=== PATIENT | male | born 1945 | race Caucasian/White ===

== ENCOUNTER → 2017-01-24 | Outpatient (CLI) | payer OTHER ==
[2017-01-24 18:13] LABS: INR 1.8 (0.9-1.1); PROTHROMBIN TIME (PATIENT) 19.9 SECONDS (9.0-12.0)
== END | disposition home or self-care (01) ==
LOC: C.LABMFLN 12:26
PROVIDERS: ATTEND Nurse Practitioner Family
DX: Z79.02 Long term (current) use of antithrombotics/antiplatelets (principal)

== ENCOUNTER 2024-12-07 11:42 | Observation (INO) ==
--- NOTE | 2024-12-07 11:57 | Emergency Department Note ---
Impression & Plan Acute exacerbation of chronic obstructive pulmonary disease, Acute bronchitis ED Provider Note NAME: BETTINA VIDAL AGE: 79 SEX: M : 1945 ARRIVES VIA: Walk-In INFORMANT: Patient, ED PROVIDER(S): Bettina Rausch DO CHIEF COMPLAINT: Shortness of breath HPI: The patient is a 79-year-old male who presents to the emergency department for an evaluation of shortness of breath and cough. The patient has been noticing symptoms since around the eighth or ninth of this month. The patient was started on a course of steroids as well as antibiotics. He still taking antibiotics but the steroids have run out. He has been using his albuterol treatments. The patient was seen at his family doctor's office today for a follow-up appointment. He was sent to the emergency department for admission for ongoing pneumonia. The patient denies having any hemoptysis. He does have lower extremity swelling which is not new. ROS: See above HPI for pertinent positives & negatives. A total of 10 systems reviewed and were otherwise negative. PAST MEDICAL HISTORY: See Below PAST SURGICAL HISTORY: See Below FAMILY HISTORY: See Below SOCIAL HISTORY: See Below HOME MEDICATIONS: See Below ALLERGIES: See Below VITALS: See Below PHYSICAL EXAMINATION: GENERAL: Patient is awake alert in no acute distress patient is resting comfortably and showing no signs of anxiety EYES: The conjunctivae are clear. The pupils are round and reactive. EARS, NOSE, MOUTH AND THROAT: The nose is without any evidence of any deformity. Mucous membranes are moist. Tongue is midline. NECK: The neck is nontender and supple. RESPIRATORY: Diminished breath sounds were noted throughout. Tachypnea with conversational dyspnea was noted. CARDIOVASCULAR: Regular rate and rhythm was noted to auscultation. Systolic murmur was suggested. GASTROINTESTINAL: The abdomen is soft. Abdomen is nontender. MUSCULOSKELETAL/EXTREMITIES: There is no evidence of gross deformity full range of motion is noted in the hips and shoulders. SKIN: Skin was warm and dry. Trace pedal edema was noted bilaterally. NEUROLOGIC: Patient is awake alert and oriented x3 MEDICAL DECISION MAKING: The patient is a 79-year-old male who presented to the emergency department directly from his primary care physician's office for an evaluation of difficulty breathing. The patient was treated for pneumonia recently. He still on antibiotics. He was getting worse so he went to see his family doctor for follow-up. The patient was treated in the emergency department with bronchodilator therapy. He was also treated with IV antibiotics. I discussed the patient's laboratory and radiographic studies with him. Vital signs are reassuring but the patient continued to have significant shortness of breath with any exertion and did have episodes of hypoxia. For this reason I discussed his condition with the on-call [facility] hospitalist. Triage Nursing notes reviewed. Prior medical records reviewed Vital Signs: reviewed and remarkable for hypoxia. Differential diagnosis: Reactive airway disease, pneumonia, pneumothorax, COPD, CHF, infections, cardiac ischemia, pulmonary embolism, musculoskeletal, gastrointestinal, as well as other pathologies. ER treatment provided: See below Diagnostics interpreted by me: ECG: EKG was obtained in the emergency department. My interpretation is normal sinus rhythm at 98 bpm. There was no ectopy. Nonspecific ST depressions were noted in the inferior and lateral leads. This was compared to a tracing from September 15, 2023. No specific changes were noted. Cardiac Monitoring: An order was placed for continuous cardiac monitoring. The monitor shows a rate of 65 bpm with sinus rhythm. Laboratory studies: As stated above and show below. Imaging studies: See below. Radiographic imaging was reviewed by myself Consultation(s): I discussed this case with Dr. Yoon who is on-call for the [facility]. Past Med/Surg History Problem List (Updated 12/07/24 @ 17:35 by Leah Flaherty) Acute bronchitis (Acute) Acute exacerbation of chronic obstructive pulmonary disease (Acute) History of pulmonary embolism Rhinovirus Hypoxia Nocturnal hypoxia Multiple pulmonary nodules Subclavian artery stenosis, right COPD with exacerbation Abnormal chest CT Allergic rhinitis with postnasal drip Exertional shortness of breath Current smoker Chronic bronchitis COPD with emphysema COPD (chronic obstructive pulmonary disease) Medical History Congenital inner ear anomaly affecting hearing Family hx colonic polyps Transient ischemic attack (TIA) Peripheral vascular disease Hyperlipidemia Hyperlipidemia Deep vein thrombosis Hypertension Bronchitis Chronic obstructive pulmonary disease Surgical History History of nasal septoplasty History of procedure for peripheral vascular disease Family History Mother History of cardiac cath Father History of thoracotomy Mother Cervical cancer Social History Smoking Status: Current every day smoker Tobacco Type: Cigarettes Cigarettes Per Day: 1PPD; Second Hand Exposure: No; Do You Dip or Chew Tobacco: No; Hx Alcohol Use: No Hx Substance Use: No Preferred Language: Mohawk Communication Ability: Effective 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 Bead 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 Required: No Beliefs That Will Affect Care: None Current Living Situation: Spouse Current Living Situation Comment: own home Feels Safe at Home: Yes Assistive Devices: Cane, Glasses and Hearing Aid - Bilateral Allergies Allergies Allergy/AdvReac Type Severity Reaction Status Date / Time Iodinated Contrast Media Allergy Intermediate Hives Verified 01/27/24 07:29 blue dye Allergy Unknown HIVES Verified 01/27/24 07:29 duloxetine Allergy Unknown HIVES Verified 01/27/24 07:29 penicillin G Allergy Unknown HIVES Verified 01/27/24 07:29 Sulfa (Sulfonamide Allergy Unknown HIVES Verified 01/27/24 07:29 Antibiotics) ANTIINFLAMMATORY ENZYME Allergy Unknown HIVES Uncoded 01/27/24 07:29 Home Meds Home Medications Medication Instructions Recorded Confirmed calcium carbonate 600 mg PO DAILY 03/08/23 12/07/24 cilostazol 100 mg tablet 100 mg PO BID 03/08/23 12/07/24 clopidogrel 75 mg tablet 75 mg PO DAILY 03/08/23 12/07/24 esomeprazole magnesium 40 mg 40 mg PO DAILY 03/08/23 12/07/24 capsule,delayed release (Nexium) ezetimibe 10 mg tablet (Zetia) 10 mg PO DAILY 03/08/23 12/07/24 fexofenadine 180 mg tablet 180 mg PO DAILY 03/08/23 12/07/24 fluticasone propionate 50 2 spray intranasal DAILY 03/08/23 12/07/24 mcg/actuation nasal spray,suspension magnesium 250 mg tablet 500 mg PO DAILY 03/08/23 12/07/24 meclizine 12.5 mg tablet 12.5 mg PO TID PRN Dizziness Or 03/08/23 12/07/24 Vertigo pregabalin 75 mg capsule (Lyrica) 75 mg PO BID 03/08/23 12/07/24 rosuvastatin 5 mg tablet 10 mg PO DAILY 03/08/23 12/07/24 temazepam 7.5 mg capsule (Restoril) 7.5 mg PO HS 03/08/23 12/07/24 warfarin 1 mg tablet 2 mg PO UD 03/08/23 12/07/24 doxycycline hyclate 100 mg capsule 100 mg PO BID 12/07/24 12/07/24 ipratropium 20 mcg-albuterol 100 2 puff inhalation DIRECTED PRN 12/07/24 12/07/24 mcg/actuation mist for inhalation Other (Combivent Respimat) warfarin 3 mg tablet 3 mg PO UD 12/07/24 12/07/24 Previous Rx's Medication Instructions Recorded Flutter Valve #1 ea 03/08/23 ipratropium 0.5 mg-albuterol 3 mg 3 ml inhalation Q6H PRN shortness 03/08/23 (2.5 mg base)/3 mL nebulization of breath or wheezing #180 mL soln oxycodone-acetaminophen 5 mg-325 1 tab PO Q6H PRN pain #10 tabs 01/27/24 mg tablet (Percocet) Flutter Valve #1 ea 03/07/24 albuterol sulfate 90 mcg/actuation 2 puff inhalation Q6H PRN 03/07/24 aerosol inhaler shortness of breath or wheezing #8.5 grams guaifenesin 600 mg tablet, 600 mg PO BID PRN congestion #60 03/07/24 extended release 12 hr (Mucinex) tabs Oxygen Home #1 ea 03/28/24 umeclidinium 62.5 mcg/actuation 1 inh inhalation DAILY #3 Inhalers 06/14/24 blister powder for inhalation (Incruse Ellipta) fluticasone 500 mcg-salmeterol 50 1 inh inhalation BID #60 ea 12/03/24 mcg/dose blistr powdr for inhalation (Wixela Inhub) Results & Data (ED) Vital Signs Vital Signs - 24 hr 12/07/24 11:44 12/07/24 11:51 12/07/24 11:51 Temperature 36.2 C L Temperature Source Temporal Artery Scan Pulse Rate 89 Pulse Rate from SpO2 Sensor Pulse Rhythm Pulse Strength Normal Respiratory Rate 19 Respiratory Effort / Characteristics Non-Labored Spontaneous Spontaneous Short of Breath Respiratory Depth Normal Normal Respiratory Pattern Regular Regular Blood Pressure 148/71 H Blood Pressure Mean 96 Blood Pressure Position Sitting Pulse Oximetry 95 94 Oxygen Delivery Method Room Air Room Air Room Air Oxygen Flow Rate Sepsis Recent Fever Within 48 Hours No Sepsis New/Unexplained Change in Mental Status No Sepsis Action Taken by Nursing No Action Required Oxygen Flow Rate - Titration Pulse Oximetry Post Tiitration 12/07/24 11:52 12/07/24 11:57 12/07/24 12:06 Temperature Temperature Source Pulse Rate 83 Pulse Rate from SpO2 Sensor 88 Pulse Rhythm Pulse Strength Respiratory Rate 18 Respiratory Effort / Characteristics Respiratory Depth Respiratory Pattern Blood Pressure 140/73 Blood Pressure Mean 100 Blood Pressure Position Pulse Oximetry 100 Oxygen Delivery Method Room Air Oxygen Flow Rate Sepsis Recent Fever Within 48 Hours Sepsis New/Unexplained Change in Mental Status Sepsis Action Taken by Nursing Oxygen Flow Rate - Titration Pulse Oximetry Post Tiitration 12/07/24 12:21 12/07/24 12:24 12/07/24 12:36 Temperature Temperature Source Pulse Rate Pulse Rate from SpO2 Sensor 72 72 Pulse Rhythm Pulse Strength Respiratory Rate Respiratory Effort / Characteristics Respiratory Depth Respiratory Pattern Blood Pressure 115/56 L Blood Pressure Mean 78 Blood Pressure Position Pulse Oximetry 94 94 Oxygen Delivery Method Room Air Room Air Oxygen Flow Rate Sepsis Recent Fever Within 48 Hours Sepsis New/Unexplained Change in Mental Status Sepsis Action Taken by Nursing Oxygen Flow Rate - Titration Pulse Oximetry Post Tiitration 12/07/24 12:57 12/07/24 13:15 12/07/24 13:21 Temperature Temperature Source Pulse Rate 66 70 Pulse Rate from SpO2 Sensor 68 72 Pulse Rhythm Pulse Strength Respiratory Rate 20 18 Respiratory Effort / Characteristics Respiratory Depth Respiratory Pattern Blood Pressure 126/63 123/62 Blood Pressure Mean 84 91 Blood Pressure Position Pulse Oximetry 93 93 Oxygen Delivery Method Room Air Room Air Oxygen Flow Rate Sepsis Recent Fever Within 48 Hours Sepsis New/Unexplained Change in Mental Status Sepsis Action Taken by Nursing Oxygen Flow Rate - Titration Pulse Oximetry Post Tiitration 12/07/24 13:30 12/07/24 13:33 12/07/24 13:45 Temperature Temperature Source Pulse Rate 71 Pulse Rate from SpO2 Sensor 71 Pulse Rhythm Pulse Strength Respiratory Rate 17 Respiratory Effort / Characteristics Respiratory Depth Respiratory Pattern Blood Pressure 140/65 182/89 H Blood Pressure Mean 105 135 Blood Pressure Position Pulse Oximetry 94 Oxygen Delivery Method Room Air Oxygen Flow Rate Sepsis Recent Fever Within 48 Hours Sepsis New/Unexplained Change in Mental Status Sepsis Action Taken by Nursing Oxygen Flow Rate - Titration Pulse Oximetry Post Tiitration 12/07/24 13:48 12/07/24 14:09 12/07/24 14:15 Temperature Temperature Source Pulse Rate 84 85 Pulse Rate from SpO2 Sensor Pulse Rhythm Pulse Strength Respiratory Rate 23 22 Respiratory Effort / Characteristics Respiratory Depth Respiratory Pattern Blood Pressure 148/110 H Blood Pressure Mean 116 Blood Pressure Position Pulse Oximetry 94 95 Oxygen Delivery Method Room Air Room Air Oxygen Flow Rate Sepsis Recent Fever Within 48 Hours Sepsis New/Unexplained Change in Mental Status Sepsis Action Taken by Nursing Oxygen Flow Rate - Titration Pulse Oximetry Post Tiitration 12/07/24 14:30 12/07/24 14:36 12/07/24 14:43 Temperature Temperature Source Pulse Rate 68 65 Pulse Rate from SpO2 Sensor Pulse Rhythm Regular Pulse Strength Respiratory Rate 17 24 Respiratory Effort / Characteristics Respiratory Depth Respiratory Pattern Blood Pressure 127/63 Blood Pressure Mean 92 Blood Pressure Position Pulse Oximetry 90 Oxygen Delivery Method Room Air Oxygen Flow Rate Sepsis Recent Fever Within 48 Hours Sepsis New/Unexplained Change in Mental Status Sepsis Action Taken by Nursing Oxygen Flow Rate - Titration Pulse Oximetry Post Tiitration 12/07/24 14:45 12/07/24 14:51 12/07/24 15:00 Temperature Temperature Source Pulse Rate 68 88 Pulse Rate from SpO2 Sensor 67 85 Pulse Rhythm Pulse Strength Respiratory Rate 18 18 Respiratory Effort / Characteristics Respiratory Depth Respiratory Pattern Blood Pressure 130/58 L 126/51 L Blood Pressure Mean 92 81 Blood Pressure Position Pulse Oximetry 100 88 L 97 Oxygen Delivery Method Nasal Cannula Nasal Cannula Nasal Cannula Oxygen Flow Rate 2 0 2 Sepsis Recent Fever Within 48 Hours Sepsis New/Unexplained Change in Mental Status Sepsis Action Taken by Nursing Oxygen Flow Rate - Titration 2 Pulse Oximetry Post Tiitration 93 Home Medications Current Medication List: was personally reviewed by me Laboratory Data Attestation: I reviewed the patient's lab results. 12/07/24 12:16 12/07/24 12:16 Lab Results 12/07/24 12/07/24 12/07/24 Range/Units 12:12 12:16 12:22 WBC 14.44 H (4.8-10.8) K/ul RBC 4.43 L (4.70-6.10) M/uL Hgb 13.0 L (14.0-18.0) g/dl Hct 39.1 L (42.0-52.0) % MCV 88.3 (80.0-100.0) fL MCH 29.3 (25.0-34.0) pg MCHC 33.2 (32.0-36.0) g/dL RDW Std Deviation 46.4 H (36.4-46.3) fL RDW Coeff of Mei 14.3 (11.5-14.5) % Plt Count 265 (130-400) K/uL MPV 9.0 L (9.4-12.4) fL Immature Gran % (Auto) 0.4 % Neut % (Auto) 60.5 % Lymph % (Auto) 29.5 % [place] % (Auto) 6.5 % Eos % (Auto) 2.8 % Baso % (Auto) 0.3 % Neut # (Auto) 8.73 H (1.40-6.50) K/uL Lymph # (Auto) 4.26 H (1.20-3.40) K/uL [place] # (Auto) 0.94 H (0.11-0.59) K/uL Eos # (Auto) 0.40 (0.00-0.50) K/uL Baso # (Auto) 0.05 (0.00-0.20) K/uL Immature Gran # (Auto) 0.06 (0.01-0.20) K/uL PT 28.0 H (9.0-12.0) Seconds INR 2.8 H (0.9-1.1) APTT 45 H (21-31) Seconds PTT Ratio 1.7 VBG pH 7.42 H (7.36-7.41) VBG pCO2 55 H (38-50) mmHg VBG pO2 37 mmHg VBG HCO3 36 mmol/L VBG O2 Saturation 61.5 % VBG Base Excess 9.3 mEq/L Sodium 138 (136-145) mmol/L Potassium 3.8 (3.5-5.1) mmol/L Chloride 100 (98-107) mmol/L Carbon Dioxide 33 H (21-32) mmol/L Anion Gap 5 (3-11) BUN 11 (6-23) mg/dl Creatinine 0.69 (0.6-1.4) mg/dl Est Cr Clr Drug Dosing Not Reportable eGFR 95.31 BUN/Creatinine Ratio 15.9 (10-20) Glucose 97 (70-99(Fasting)) mg/dl Lactate 1.1 (0.4-2.0) mmol/L Calcium 9.6 (8.6-10.3) mg/dl Magnesium 1.6 L (1.7-2.4) mg/dl Total Bilirubin 0.5 (0.2-1.0) mg/dl Direct Bilirubin 0.1 (0-0.2) mg/dl AST 19 (13-39) U/L ALT 23 (7-52) U/L Alkaline Phosphatase 64 (34-104) U/L Troponin I High Sens 14.4 (0-20) pg/ml Total Protein 6.6 (6.0-8.3) gm/dl Albumin 3.9 (3.4-5.0) gm/dl Procalcitonin 0.02 (0-0.5) ng/ml Urine Color Urine Appearance (Clear) Urine pH (4.5-7.5) Ur Specific [place] (1.000-1.030) Urine Protein (Negative) Urine Glucose (UA) (Negative) Urine Ketones (Negative) Urine Blood (Negative) Urine Nitrite (Negative) Urine Bilirubin (Negative) Urine Urobilinogen (Negative) Ur Leukocyte Esterase (Negative) Urine WBC (Auto) (0-5) /hpf Urine RBC (Auto) (0-2) /hpf U Hyaline Cast (Auto) (0-2) /lpf U Epithel Cells (Auto) (0-2) /hpf Urine Bacteria (Auto) (None Seen) Adenovirus (PCR) Not Detected (NotDetected) B. pertussis DNA (PCR) Not Detected (NotDetected) B.parapertussis DNA PCR Not Detected (NotDetected) C. pneumoniae DNA (PCR) Not Detected (NotDetected) Coronavirus OC43 (PCR) Not Detected (NotDetected) Coronavirus HKU1 (PCR) Not Detected (NotDetected) Coronavirus 229E (PCR) Not Detected (NotDetected) SARS-CoV-2 (PCR) Not Detected (NotDetected) Coronavirus NL63 (PCR) Not Detected (NotDetected) Human Metapneumovir PCR Not Detected (NotDetected) Influenza Type A (PCR) Not Detected (NotDetected) Influenza Type B (PCR) Not Detected (NotDetected) M. pneumoniae (PCR) Not Detected (NotDetected) Parainfluenza 1 (PCR) Not Detected (NotDetected) Parainfluenza 2 (PCR) Not Detected (NotDetected) Parainfluenza 3 (PCR) Not Detected (NotDetected) Parainfluenza 4 (PCR) Not Detected (NotDetected) RSV (PCR) Not Detected (NotDetected) Entero/Rhino (PCR) DETECTED A (NotDetected) 12/07/24 Range/Units 13:40 WBC (4.8-10.8) K/ul RBC (4.70-6.10) M/uL Hgb (14.0-18.0) g/dl Hct (42.0-52.0) % MCV (80.0-100.0) fL MCH (25.0-34.0) pg MCHC (32.0-36.0) g/dL RDW Std Deviation (36.4-46.3) fL RDW Coeff of Mei (11.5-14.5) % Plt Count (130-400) K/uL MPV (9.4-12.4) fL Immature Gran % (Auto) % Neut % (Auto) % Lymph % (Auto) % [place] % (Auto) % Eos % (Auto) % Baso % (Auto) % Neut # (Auto) (1.40-6.50) K/uL Lymph # (Auto) (1.20-3.40) K/uL [place] # (Auto) (0.11-0.59) K/uL Eos # (Auto) (0.00-0.50) K/uL Baso # (Auto) (0.00-0.20) K/uL Immature Gran # (Auto) (0.01-0.20) K/uL PT (9.0-12.0) Seconds INR (0.9-1.1) APTT (21-31) Seconds PTT Ratio VBG pH (7.36-7.41) VBG pCO2 (38-50) mmHg VBG pO2 mmHg VBG HCO3 mmol/L VBG O2 Saturation % VBG Base Excess mEq/L Sodium (136-145) mmol/L Potassium (3.5-5.1) mmol/L Chloride (98-107) mmol/L Carbon Dioxide (21-32) mmol/L Anion Gap (3-11) BUN (6-23) mg/dl Creatinine (0.6-1.4) mg/dl Est Cr Clr Drug Dosing eGFR BUN/Creatinine Ratio (10-20) Glucose (70-99(Fasting)) mg/dl Lactate (0.4-2.0) mmol/L Calcium (8.6-10.3) mg/dl Magnesium (1.7-2.4) mg/dl Total Bilirubin (0.2-1.0) mg/dl Direct Bilirubin (0-0.2) mg/dl AST (13-39) U/L ALT (7-52) U/L Alkaline Phosphatase (34-104) U/L Troponin I High Sens (0-20) pg/ml Total Protein (6.0-8.3) gm/dl Albumin (3.4-5.0) gm/dl Procalcitonin (0-0.5) ng/ml Urine Color Yellow Urine Appearance Clear (Clear) Urine pH 7.5 (4.5-7.5) Ur Specific [place] 1.008 (1.000-1.030) Urine Protein Negative (Negative) Urine Glucose (UA) Negative (Negative) Urine Ketones Negative (Negative) Urine Blood Negative (Negative) Urine Nitrite Negative (Negative) Urine Bilirubin Negative (Negative) Urine Urobilinogen Negative (Negative) Ur Leukocyte Esterase Trace H (Negative) Urine WBC (Auto) 0-5 (0-5) /hpf Urine RBC (Auto) 0-2 (0-2) /hpf U Hyaline Cast (Auto) 0-2 (0-2) /lpf U Epithel Cells (Auto) 0-2 (0-2) /hpf Urine Bacteria (Auto) None Seen (None Seen) Adenovirus (PCR) (NotDetected) B. pertussis DNA (PCR) (NotDetected) B.parapertussis DNA PCR (NotDetected) C. pneumoniae DNA (PCR) (NotDetected) Coronavirus OC43 (PCR) (NotDetected) Coronavirus HKU1 (PCR) (NotDetected) Coronavirus 229E (PCR) (NotDetected) SARS-CoV-2 (PCR) (NotDetected) Coronavirus NL63 (PCR) (NotDetected) Human Metapneumovir PCR (NotDetected) Influenza Type A (PCR) (NotDetected) Influenza Type B (PCR) (NotDetected) M. pneumoniae (PCR) (NotDetected) Parainfluenza 1 (PCR) (NotDetected) Parainfluenza 2 (PCR) (NotDetected) Parainfluenza 3 (PCR) (NotDetected) Parainfluenza 4 (PCR) (NotDetected) RSV (PCR) (NotDetected) Entero/Rhino (PCR) (NotDetected) Administered Medications Nicotine (Nicotine 14 Mg/24 Hr Patch) 1 patch TD [facility] Stop: 01/06/25 15:44 Last Admin: 12/07/24 16:16 Dose: 1 patch Documented By: SRL Discontinued Medications Albuterol (Albut/Ipratrop 3mg/0.5mg Neb 3 Ml Vial) 3 ml NEB NOW STA; Protocol Stop: 12/07/24 11:52 Last Admin: 12/07/24 12:28 Dose: 3 ml Documented By: LENA Magnesium Sulfate/Dextrose (Magnesium Sulfate / D5w) 1 gm in 100 mls @ 100 mls/hr IV NOW STA Stop: 12/07/24 14:10 Last Infusion: 12/07/24 14:33 Dose: Infused Documented By: Admin: 12/07/24 13:21 Dose: 100 mls/hr Documented By: LENA Ceftriaxone Sodium (Rocephin) 2,000 mg in 50 mls @ 100 mls/hr IV NOW STA Stop: 12/07/24 14:26 Last Infusion: 12/07/24 15:26 Dose: Infused Documented By: Admin: 12/07/24 14:52 Dose: 100 mls/hr Documented By: LENA Methylprednisolone (Methylprednisolone 125 Mg/2 Ml Vial) 60 mg IV NOW STA Stop: 12/07/24 11:52 Last Admin: 12/07/24 12:28 Dose: 60 mg Documented By: LENA Imaging Data Attestation: I personally reviewed and interpreted this imaging study as follows: My Impression: 1 view chest x-ray was obtained in the emergency department. My interpretation is no free air or definite infiltrate, final report below. Radiologist's Impression: Chest X-Ray 12/07/24 11:51 XR chest 1V portable CLINICAL HISTORY: Sepsis TECHNIQUE: Single frontal radiograph of the chest was obtained. Comparison: Comparison is made to chest radiograph 09/15/2023 FINDINGS: No lines and tubes are seen. Calcified aortic knob is seen. The lungs are clear. No evidence of pleural effusion or pneumothorax. IMPRESSION: No acute abnormalities and in particular no radiographic evidence of pneumonia. ACT 112: Negative or not required by law. Electronically signed by: Pino Hernandez M.D. 12/07/2024 12:51 PM Discharge Plan Visit Data Chief Complaint: Shortness of Breath/Dyspnea Stated Complaint: PNEUMONIA, SOB, OX LOW ED Provider: Bettina Rausch Discharge Problem: Acute exacerbation of chronic obstructive pulmonary disease, Acute bronchitis Patient Disposition: Being Evaluated by Hospitalist Discharge Instructions Interventions: ED Discharge Assessment Last Done: 12/07/24 17:11 Discharge Problem: Acute bronchitis Qualifiers: Bronchitis organism: unspecified organism Qualified Code(s): J20.9 - Acute bronchitis, unspecified
[2024-12-07] MEDS: ALBUT/IPRATROP 3MG/0.5MG NEB 3 ML VIAL NEB STA (12:28)
[2024-12-07] MEDS: methylPREDNISolone 125 MG/2 ML VIAL IV STA (12:28)
[2024-12-07 12:33] LABS: Base Excess VBG 9.3 mEq/L; HCO3 VBG 36 mmol/L; Oxygen Saturation VBG 61.5 %; PCO2 VBG 55 mmHg (38-50); PO2 VBG 37 mmHg; pH VBG 7.42 (7.36-7.41)
[2024-12-07 12:41] LABS: Basophils # (auto) 0.05 K/uL (0.00-0.20); Basophils % (auto) 0.3 %; Eosinophils % (auto) 2.8 %; Hematocrit (blood only) 39.1 % (42.0-52.0); Immature Granulocytes # (auto) 0.06 K/uL (0.01-0.20); Immature Granulocytes % (auto) 0.4 %; Lymphocytes # (auto) 4.26 K/uL (1.20-3.40); Lymphocytes % (auto) 29.5 %; Mean Corpuscular Hemoglobin 29.3 pg (25.0-34.0); Mean Corpuscular Hgb Conc 33.2 g/dL (32.0-36.0); Mean Corpuscular Volume 88.3 fL (80.0-100.0); Monocytes # (auto) 0.94 K/uL (0.11-0.59); Monocytes % (auto) 6.5 %; Neutrophils # (auto) 8.73 K/uL (1.40-6.50); Neutrophils % (auto) 60.5 %; Platelet Count 265 K/uL (130-400); RDW Coefficient of Variation 14.3 % (11.5-14.5); RDW Standard Deviation 46.4 fL (36.4-46.3); Red Blood Count 4.43 M/uL (4.70-6.10); White Blood Count 14.44 K/ul (4.8-10.8)
[2024-12-07 12:57] LABS: Alanine Aminotransferase 23 U/L (7-52); Albumin Level 3.9 gm/dl (3.4-5.0); Alkaline Phosphatase 64 U/L (34-104); Anion Gap 5 (3-11); Aspartate Aminotransferase 19 U/L (13-39); BUN Creatinine Ratio 15.9 (10-20); Bilirubin Direct 0.1 mg/dl (0-0.2); Bilirubin,Total 0.5 mg/dl (0.2-1.0); Blood Urea Nitrogen 11 mg/dl (6-23); Calcium 9.6 mg/dl (8.6-10.3); Carbon Dioxide 33 mmol/L (21-32); Chloride 100 mmol/L (98-107); Glucose 97 mg/dl (70-99(Fasting)); Magnesium 1.6 mg/dl (1.7-2.4); Potassium 3.8 mmol/L (3.5-5.1); Sodium 138 mmol/L (136-145); Total Protein 6.6 gm/dl (6.0-8.3)
[2024-12-07 13:02] LABS: Troponin I High Sensitivity 14.4 pg/ml (0-20)
[2024-12-07 13:09] LABS: INR 2.8 (0.9-1.1); Partial Thromboplastin Ratio 1.7; Partial Thromboplastin Time 45 Seconds (21-31)
--- NOTE | 2024-12-07 13:18 | XRay Report ---
XR chest 1V portable CLINICAL HISTORY: Sepsis TECHNIQUE: Single frontal radiograph of the chest was obtained. Comparison: Comparison is made to chest radiograph 09/15/2023 FINDINGS: No lines and tubes are seen. Calcified aortic knob is seen. The lungs are clear. No evidence of pleur al effusion or pneumothorax. IMPRESSION: No acute abnormalities and in particular no radiographic evidence of pneumonia. ACT 112: Negative or not required by law. Electronically signed by: Pino Hernandez M.D. 12/07/2024 12:51 PM
[2024-12-07] MEDS: MAGNESIUM SULFATE / D5W 1 GM/100 ML BAG IV STA (13:21)
[2024-12-07 13:23] LABS: Adenovirus PCR Not Detected (NotDetected); Bordetella parapertussis PCR Not Detected (NotDetected); Bordetella pertussis PCR Not Detected (NotDetected); Chlamydia pneumoniae PCR Not Detected (NotDetected); Coronavirus 229E PCR Not Detected (NotDetected); Coronavirus CoV-2 (COVID19)PCR Not Detected (NotDetected); Coronavirus HKU1 PCR Not Detected (NotDetected); Coronavirus NL63 PCR Not Detected (NotDetected); Coronavirus OC43PCR Not Detected (NotDetected); Human Metapneumovirus PCR Not Detected (NotDetected); Influenza A PCR Not Detected (NotDetected); Influenza B PCR Not Detected (NotDetected); Mycoplasma pneumoniae PCR Not Detected (NotDetected); Parainfluenza Virus 1 PCR Not Detected (NotDetected); Parainfluenza Virus 2 PCR Not Detected (NotDetected); Parainfluenza Virus 3 PCR Not Detected (NotDetected); Parainfluenza Virus 4 PCR Not Detected (NotDetected); Respiratory Syncytial VirusPCR Not Detected (NotDetected); Rhinovirus/Enterovirus PCR DETECTED (NotDetected)
[2024-12-07 13:58] LABS: Appearance Urine Clear (Clear); Bacteria Urine Automated None Seen (None Seen); Bilirubin Urine Negative (Negative); Blood Urine Negative (Negative); Cast Urine Automated 0-2 /lpf (0-2); Color Urine Yellow; Epithelial Cell Urine Auto 0-2 /hpf (0-2); Glucose Urine UA Negative (Negative); Ketones Urine Negative (Negative); Leukocyte Esterase Urine Trace (Negative); Nitrite Urine Negative (Negative); Protein Urine Negative (Negative); RBC Urine Automated 0-2 /hpf (0-2); Specific Gravity Urine 1.008 (1.000-1.030); Urobilinogen Urine Negative (Negative); WBC Urine Automated 0-5 /hpf (0-5); pH Urine 7.5 (4.5-7.5)
[2024-12-07] MEDS: cefTRIAXone SODIUM 2,000 MG/50 ML BAG IV STA (14:52)
--- NOTE | 2024-12-07 14:53 | History & Physical Report ---
Date of Service December 07, 2024 Assessment & Plan (1) COPD with exacerbation: Plan: Carlos is a 79-year-old male with PMH of COPD, chronic bronchitis, allergic rhinitis, tobacco use, recurrent pulmonary embolisms (on warfarin), and nocturnal hypoxia. He presented on SOB/dyspnea and productive cough that began on 11/29. Patient is hypoxic on arrival at 88% on RA Rx for doxycycline and prednisone on 11/29 for presumed pneumonia CXR on arrival revealed no acute abnormalities or evidence of pneumonia Continue doxycycline to course completion on 12/08 (two doses remain) Blood/sputum cultures ordered, pending While no pneumonia on CXR, given mild leukocytosis of 14.44 will cover with Rocephin 2000 mg IV q24h for now Incentive spirometry, flutter valve Guaifenesin 1200 mg p.o. BID DuoNeb 3 mL Q6R Solu-Medrol 40 mg IV BID (2) Hypoxia: Plan: Patient reports he is not on supplemental oxygen at baseline Titrate supplemental oxygen as needed to maintain SpO2 89-92% Continuous pulse oximetry (3) Rhinovirus: Plan: Entero-/rhinovirus (+) on admission Supportive care Droplet isolation precautions Acetaminophen as needed for pain/fever (4) Current smoker: Plan: Follows with [facility] pulmonology; 60-year pack history Nicotine patch daily Continue to encourage cessation (5) History of pulmonary embolism: Plan: INR therapeutic at 2.8 on arrival Continue warfarin Trend PT/INR Plan Disposition: Admit to [facility] with telemetry Full code Regular diet VTE PPx: Warfarin History of Present Illness Chief Complaint: SOB/dyspnea Primary Care Provider: SILVESTRE Rowe Carlos is a 79-year-old male with PMH of COPD, chronic bronchitis, allergic rhinitis, tobacco use, recurrent pulmonary embolisms (on warfarin), and nocturnal hypoxia. He presented on SOB/dyspnea, and first of cough that began on 11/29. Patient was originally prescribed a course of antibiotics (doxycycline 100 mg twice daily) as well as prednisone 50 mg daily for what was presumed pneumonia; Rx on 11/29. However, his symptoms have persisted. He endorses SOB with exertion, chest pain from coughing, and ongoing productive cough. He does have a history of pulmonary embolisms, for which she is on warfarin and reports good compliance. She denies using supplemental oxygen at home or CPAP at night. No sick contacts to his knowledge. He took all his regular morning medicine today. In addition to his regular medications, he has been using his inhaler more at home, which helps. He has also been taking Tylenol as needed for low- grade fevers (99 to 100 F) at home. Patient ambulates with a cane at baseline. No recent falls. Patient is a current everyday tobacco cigarette smoker; 0.5 PPD. He would like a nicotine patch while he is here. Denies any recent alcohol use. SpO2 88% on RA at time of admission; vitals otherwise stable. ED course: Solu-Medrol 60 mg IV DuoNeb 3 mL Ceftriaxone 2000 mg IV Magnesium sulfate 1 g IV ROS: Patient endorses low-grade fever (99 to 100 F), chills, lightheadedness with movements, LUCAS, chest pain (which he attributes to hacking cough), productive cough (greenish yellow), mild pleuritic CP, diarrhea (which patient attributes to recent prednisone usage), and chronic neuropathy in the arms and legs Patient denies body aches, syncope, hemoptysis, orthopnea, abdominal pain, N/V, burning with urination, or blood in the urine/stool. Allergies Allergy/AdvReac Type Severity Reaction Status Date / Time Iodinated Contrast Media Allergy Intermediate Hives Verified 01/27/24 07:29 blue dye Allergy Unknown HIVES Verified 01/27/24 07:29 duloxetine Allergy Unknown HIVES Verified 01/27/24 07:29 penicillin G Allergy Unknown HIVES Verified 01/27/24 07:29 Sulfa (Sulfonamide Allergy Unknown HIVES Verified 01/27/24 07:29 Antibiotics) ANTIINFLAMMATORY ENZYME Allergy Unknown HIVES Uncoded 01/27/24 07:29 Home Medications Medication Instructions Recorded Confirmed Type Flutter Valve #1 ea 03/08/23 11/16/23 Rx calcium carbonate 600 mg PO DAILY 03/08/23 12/07/24 History cilostazol 100 mg tablet 100 mg PO BID 03/08/23 12/07/24 History clopidogrel 75 mg tablet 75 mg PO DAILY 03/08/23 12/07/24 History esomeprazole magnesium 40 mg 40 mg PO DAILY 03/08/23 12/07/24 History capsule,delayed release (Nexium) ezetimibe 10 mg tablet (Zetia) 10 mg PO DAILY 03/08/23 12/07/24 History fexofenadine 180 mg tablet 180 mg PO DAILY 03/08/23 12/07/24 History fluticasone propionate 50 2 spray intranasal DAILY 03/08/23 12/07/24 History mcg/actuation nasal spray,suspension ipratropium 0.5 mg-albuterol 3 mg 3 ml inhalation Q6H PRN shortness 03/08/23 12/07/24 Rx (2.5 mg base)/3 mL nebulization of breath or wheezing #180 mL soln magnesium 250 mg tablet 500 mg PO DAILY 03/08/23 12/07/24 History meclizine 12.5 mg tablet 12.5 mg PO TID PRN Dizziness Or 03/08/23 12/07/24 History Vertigo pregabalin 75 mg capsule (Lyrica) 75 mg PO BID 03/08/23 12/07/24 History rosuvastatin 5 mg tablet 10 mg PO DAILY 03/08/23 12/07/24 History temazepam 7.5 mg capsule (Restoril) 7.5 mg PO HS 03/08/23 12/07/24 History warfarin 1 mg tablet 2 mg PO UD 03/08/23 12/07/24 History oxycodone-acetaminophen 5 mg-325 1 tab PO Q6H PRN pain #10 tabs 01/27/24 12/07/24 Rx mg tablet (Percocet) Flutter Valve #1 ea 03/07/24 03/07/24 Rx albuterol sulfate 90 mcg/actuation 2 puff inhalation Q6H PRN 03/07/24 12/07/24 Rx aerosol inhaler shortness of breath or wheezing #8.5 grams guaifenesin 600 mg tablet, 600 mg PO BID PRN congestion #60 03/07/24 12/07/24 Rx extended release 12 hr (Mucinex) tabs Oxygen Home #1 ea 03/28/24 Rx umeclidinium 62.5 mcg/actuation 1 inh inhalation DAILY #3 Inhalers 06/14/24 12/07/24 Rx blister powder for inhalation (Incruse Ellipta) fluticasone 500 mcg-salmeterol 50 1 inh inhalation BID #60 ea 12/03/24 12/07/24 Rx mcg/dose blistr powdr for inhalation (Wixela Inhub) doxycycline hyclate 100 mg capsule 100 mg PO BID 12/07/24 12/07/24 History ipratropium 20 mcg-albuterol 100 2 puff inhalation DIRECTED PRN 12/07/24 12/07/24 History mcg/actuation mist for inhalation Other (Combivent Respimat) warfarin 3 mg tablet 3 mg PO UD 12/07/24 12/07/24 History Past Med/Surg History Problem List (Updated 12/07/24 @ 17:35 by Leah Flaherty) Acute bronchitis (Acute) Acute exacerbation of chronic obstructive pulmonary disease (Acute) History of pulmonary embolism Rhinovirus Hypoxia Nocturnal hypoxia Multiple pulmonary nodules Subclavian artery stenosis, right COPD with exacerbation Abnormal chest CT Allergic rhinitis with postnasal drip Exertional shortness of breath Current smoker Chronic bronchitis COPD with emphysema COPD (chronic obstructive pulmonary disease) Medical History Congenital inner ear anomaly affecting hearing Family hx colonic polyps Transient ischemic attack (TIA) Peripheral vascular disease Hyperlipidemia Hyperlipidemia Deep vein thrombosis Hypertension Bronchitis Chronic obstructive pulmonary disease Surgical History History of nasal septoplasty History of procedure for peripheral vascular disease Family History Mother History of cardiac cath Father History of thoracotomy Mother Cervical cancer Social History Smoking Status: Current every day smoker Tobacco Type: Cigarettes Cigarettes Per Day: 1PPD; Second Hand Exposure: No; Do You Dip or Chew Tobacco: No; Hx Alcohol Use: No Hx Substance Use: No Preferred Language: Hungarian Communication Ability: Effective Capacity Planning Engineer Required: No Beliefs That Will Affect Care: None Current Living Situation: Spouse Current Living Situation Comment: own home Feels Safe at Home: Yes Assistive Devices: Cane, Glasses and Hearing Aid - Bilateral Review of Systems Review of Systems: See HPI above Physical Exam Physical Exam: General: Mild respiratory distress; hoarse voice; non-toxic appearing; well-no urished; cooperative HEENT: normocephalic, atraumatic; no scleral icterus; PERRLA; vision and hearing grossly intact Neck: supple; no lymphadenopathy; trachea midline Skin: warm, dry without signs of tenting; no cyanosis; no rashes, bruising, lesions, or erythema noted CV: chest wall NTP; RRR; S1/S2 normal; no murmurs/rubs/gallops; pulses intact and symmetric at radial, DP, and PT Lungs: Mild respiratory distress; conversational dyspnea; symmetrical chest wall expansion; diminished breath sounds across all lung peraza bilaterally; expiratory wheeze in positive crackles in the lower lung peraza bilaterally ABD: Soft, NTP; BS present; no rebound/guarding; no distention Back: Thoracic kyphosis MSK: no tics or fasciculations; +2 pitting edema in lower extremities bilaterally (RLE slightly larger than LLE) Neuro: A&Ox3; normal mood and affect; fluent speech; no focal deficits; sensation intact and symmetric in lower extremities bilaterally Results & Data Results & Data Vital Signs (Past 12 Hours) Vital Signs Temp Pulse Resp BP Pulse Ox O2 Del Method 12/07/24 14:43 65 24 90 Room Air 12/07/24 14:36 68 17 12/07/24 14:30 127/63 12/07/24 14:15 148/110 H 12/07/24 14:09 85 22 95 Room Air 12/07/24 13:48 84 23 94 Room Air 12/07/24 13:45 182/89 H 12/07/24 13:33 71 17 94 Room Air 12/07/24 13:30 140/65 12/07/24 13:21 70 18 93 Room Air 12/07/24 13:15 123/62 12/07/24 12:57 66 20 126/63 93 Room Air 12/07/24 12:36 115/56 L 12/07/24 12:24 94 Room Air 12/07/24 12:21 94 Room Air 12/07/24 12:06 83 12/07/24 11:57 18 100 Room Air 12/07/24 11:52 140/73 12/07/24 11:51 94 Room Air 12/07/24 11:51 Room Air 12/07/24 11:44 36.2 C L 89 19 148/71 H 95 Room Air Laboratory Results Abnormal lab results 12/07/24 12/07/24 12/07/24 Range/Units 12:12 12:16 12:22 WBC 14.44 H (4.8-10.8) K/ul RBC 4.43 L (4.70-6.10) M/uL Hgb 13.0 L (14.0-18.0) g/dl Hct 39.1 L (42.0-52.0) % RDW Std Deviation 46.4 H (36.4-46.3) fL MPV 9.0 L (9.4-12.4) fL Neut # (Auto) 8.73 H (1.40-6.50) K/uL Lymph # (Auto) 4.26 H (1.20-3.40) K/uL [place] # (Auto) 0.94 H (0.11-0.59) K/uL PT 28.0 H (9.0-12.0) Seconds INR 2.8 H (0.9-1.1) APTT 45 H (21-31) Seconds VBG pH 7.42 H (7.36-7.41) VBG pCO2 55 H (38-50) mmHg Carbon Dioxide 33 H (21-32) mmol/L Magnesium 1.6 L (1.7-2.4) mg/dl Ur Leukocyte Esterase (Negative) Entero/Rhino (PCR) DETECTED A (NotDetected) 12/07/24 Range/Units 13:40 WBC (4.8-10.8) K/ul RBC (4.70-6.10) M/uL Hgb (14.0-18.0) g/dl Hct (42.0-52.0) % RDW Std Deviation (36.4-46.3) fL MPV (9.4-12.4) fL Neut # (Auto) (1.40-6.50) K/uL Lymph # (Auto) (1.20-3.40) K/uL [place] # (Auto) (0.11-0.59) K/uL PT (9.0-12.0) Seconds INR (0.9-1.1) APTT (21-31) Seconds VBG pH (7.36-7.41) VBG pCO2 (38-50) mmHg Carbon Dioxide (21-32) mmol/L Magnesium (1.7-2.4) mg/dl Ur Leukocyte Esterase Trace H (Negative) Entero/Rhino (PCR) (NotDetected) Diagnostic Findings Chest X-Ray 12/07/24 11:51 XR chest 1V portable CLINICAL HISTORY: Sepsis TECHNIQUE: Single frontal radiograph of the chest was obtained. Comparison: Comparison is made to chest radiograph 09/15/2023 FINDINGS: No lines and tubes are seen. Calcified aortic knob is seen. The lungs are clear. No evidence of pleural effusion or pneumothorax. IMPRESSION: No acute abnormalities and in particular no radiographic evidence of pneumonia. ACT 112: Negative or not required by law. Electronically signed by: Pino Hernandez M.D. 12/07/2024 12:51 PM ECG Additional Comments: ECG revealed NSR at 98bpm; QTc 462 Code Status & VTE Plan Code Status Full code VTE Prophylaxis Plan VTE Prophylaxis will be ordered: Yes Supervising Physician Co-Signing Physician Notes Patient seen and examined, chart reviewed, case discussed with Glen Boyd PA-C and I agree with the assessment and plan as above except as otherwise noted above. 79yo M with a PMHx of COPD, tobacco abuse, HFpEF, CEA, PAD, hypercoagulopathy, prior IVC placement who who was referred to the ER for shortness of breath, cough, and fatigue by his PCP. Completed a course of steroids, and was on abx which have not helped. CXR with naf. Biofire +for rhino/enterovirus. PCT is negative, WBC is elevated without left shift ?from recent steroid course. Pt is recommended for admission for AHRF due to COPD exacerbation + virual URI. Per med rec review was due to complete doxycycline 7 day course 12/07. No evidence of acute CHF. +chronic LE edema, but no pulmonary edema. suspect some venous stasis component. Suspect sx are mostly due to viral URI + COPD exacerbation. Agree w/ supportive care, steroid course, azithromycin 5 day burst. Continue home inhalers. Duonebs Q6H CATRINA, +Q2H PRN. Mg 1.6 --> +BID PO repletion x4 doses. Agree w/ management including chronic medical issues as noted above PG Care Time/CCT Total # of Minutes Spent Total Time Spent with Patient: Total time spent is greater than 50% in coordination of care (as documented) at patient's floor/unit and/or counseling patient: C[place] [address] INT INP/OBS CARE 3/75MIN Patient Type Established History Comprehensive Exam Comprehensive Medical Decision Making High Complexity Diagnoses COPD with exacerbation J44.1 Hypoxia R09.02 Rhinovirus B34.8 Current smoker F17.200 History of pulmonary embolism Z86.711
[2024-12-07] MEDS: NICOTINE 14 MG/24 HR PATCH TD SCH (16:16)
--- OUTSIDE RECORDS SUMMARY | 2024-12-07 17:38 | External Medical Summary | Continuity of Care Document ---
Author Name Unknown Organization [facility] [address] [place] [address] [place] [phone] Care Team Providers Care Transcription Typist Name Role Phone Toya Colón Primary Care Physician [phone] Encounter [facility] [id number] Date(s): 11/29/24 - 11/29/24 [facility] [address] [facility] 207 [facility] [address] [address] [phone] Encounter Diagnosis Chronic anticoagulation(Discharge Diagnosis) - 07/09/24 (HFpEF) heart failure with preserved ejection fraction(Discharge Diagnosis) - 11/29/24 Atherosclerosis of leg with intermittent claudication(Discharge Diagnosis) - 11/29/24 Coagulation deficiency(Discharge Diagnosis) - 11/29/24 COPD(Discharge Diagnosis) - 11/29/24 Frontal sinusitis(Discharge Diagnosis) - 11/29/24 Innominate artery stenosis(Discharge Diagnosis) - 11/29/24 PAD (peripheral artery disease)(Discharge Diagnosis) - 11/29/24 Subclavian artery stenosis, right(Discharge Diagnosis) - 11/29/24 Discharge Disposition: Home or Self Care Attending Physician: MD Dominguez Joseph P Allergies, Adverse Reactions, Alerts Substance Criticality Severity Reaction Reaction Severity Status sulfa drugs Pharyngeal swel ling Hives Active Tolectin hives itchy Active NSAIDS (nonsteroidal anti-inflammatory agents) Swelling of tongue Pharyngeal swelling Hives Active Tessalon Perles unable to sw allow - throat goes numb & muscles won't work Active IVP dye Swelling of ton lorena Pharyngeal swelling Hives Active Cymbalta Pharyngeal swel ling Hives Active PCN (penicillin) Swelling of tongue Pharyngeal swelling Hives Active Assessment and Plan Extracted from: Title:Office Visit Note Author:MD Alberto, Malcom Almonte Date:11/29/24 1.(HFpEF) heart failure wi th preserved ejection fraction Sees Cardiology - needs to reschedule. Sees Dr. Baxter 2.Atherosclerosis of leg with intermittent claudication Sees Cardiolgy and will see Dr. Porras 3.Coagulation deficiency [facility] 4.COPD Still smoking and having CT chest and sees Dr. Enriquez 5.Frontal sinusitis Will Rx doxycyclinemg BID for 7 days. He has diarrhea and not dehydrated today. Doxycyclinemay help with this. He is somewhat more short of breath with his COPD. Will also prescribe prednisone 50 mg daily for 5 days. Try Metamucil for diarrhea and continue hydration 6.Innominate artery stenosis Seeing Dr. Porras 7.PAD (peripheral artery disease) Encourage smoking cessation 8.Subclavian artery stenosis, right Seeing Dr. Porras I have personally spent 33minutes performing ctek-id-sruj and kvq-hxje-wb-face activities on this date of service. My activities included reviewing past records prior tothe encounter, reviewed past lab results,with extensive counseling. Immunizations Given and Recorded Vaccine Date Status Refusal Reason RSV vaccine preF3, recombinant 09/05/24 Recorded influenza virus vaccine, inactivated 09/05/24 Semaj rded influenza virus vaccine, inactivated 09/01/23 Give n influenza virus vaccine, inactivated 11/18/22 Give n influenza virus vaccine, inactivated 10/05/21 Give n influenza virus vaccine, inactivated 07/24/20 Give n influenza virus vaccine, inactivated 10/26/19 Give n influenza virus vaccine, inactivated 10/09/18 Give n influenza virus vaccine, inactivated 09/13/17 Give n influenza virus vaccine, inactivated 09/07/16 Give n influenza virus vaccine, inactivated 09/23/15 Give n influenza virus vaccine, inactivated 08/30/14 Give n influenza virus vaccine, inactivated 08/29/13 Give n influenza virus vaccine, inactivated 08/25/12 Give n SARS-CoV-2 (COVID-19) mRNA-vacc - [id number] 09/05/24 Recorded tetanus/diphtheria/pertuss, acel (Tdap) 03/09/24 R ecorded tetanus/diphtheria/pertuss, acel (Tdap) 10/16/10 R ecorded pneumococcal 20-valent conjugate vaccine 11/18/22 Given SARS-CoV-2 mRNA (Pfizer 12+) bivalent 12/09/21 Rec orded SARS-CoV-2 mRNA ([id number]) 03/25/21 Re corded SARS-CoV-2 mRNA ([id number]) 03/04/21 Re corded zoster vaccine live 09/23/15 Given pneumococcal 13-valent vaccine 08/30/14 Given influenza virus vaccine, H1N1 1 10/07/09 Recorded pneumococcal 23-valent vaccine 08/27/08 Recorded 1Result Comment: 2021-05-12: Historical information-source unspecified Medications Albuterol (Eqv-Proventil HFA) 90 mcg/inh inhalation aerosol Start: 02/17/23 1:18:00 PM EDT, 2 puff, inhaled, q6h, Disp# 3 each, Refills: 3, Pharmacy: [facility] Start Date: 02/17/23 Status: Ordered albuterol-ipratropium 2.5 mg-0.5 mg/3 mL inhalation solution Start: 11/29/24 3:18:00 PM EST, 3 mL, inhaled, tid, Disp# 180 mL, Refills: 6, PRN: as needed for shortness of breath or wheezing, Pharmacy: [facility]/pharmacy #[id number] Start Date: 11/29/24 Status: Ordered aspirin 81 mg oral tablet Start: 04/30/20 1:32:00 PM EDT, 1 tab, PO, Daily Start Date: 04/30/20 Status: Ordered Caltrate 600 with D Start: 12/10/08 6:43:30 AM EST, 1 tab, PO, Daily, Refills: 0, current medication from another provider Start Date: 12/10/08 Status: Ordered cilostazol 100 mg oral tablet Start: 05/17/24 10:00:00 AM EDT, See Instructions, Disp# 180 tab, Refills: 3, TAKE ONE TABLET BY MOUTH TWICE A DAY 30 MINUTES BEFORE BREAKFAST AND SUPPER, Pharmacy: [facility]/pharmacy #[id number] Start Date: 05/17/24 Status: Ordered clopidogrel 75 mg oral tablet Start: 04/30/24 5:11:00 PM EDT, 1 tab, PO, Daily, Disp# 90 tab, Refills: 3, Pharmacy: [facility] Start Date: 04/30/24 Status: Ordered Colace Start: 12/10/08 6:42:12 AM EST, 100 mg =, PO, bid, Refills: 0, current medication from another provider Start Date: 12/10/08 Status: Ordered Combivent Respimat 20 mcg-100 mcg/inh inhalation aerosol Start: 03/10/24 11:42:00 AM EDT, See Instructions, Disp# 4 g, Refills: 2, Inhale 1 puff four times daily - may take additional inhalations as required - not to exceed 6 inhalations in 24 hours., Pharmacy: [facility]/pharmacy #[id number] Start Date: 03/10/24 Status: Ordered CoQ10 100 mg oral capsule Start: 12/16/23 3:44:00 PM EST, 1 cap, PO, bid Start Date: 12/16/23 Status: Ordered doxycycline hyclate 100 mg oral capsule Start: 11/29/24 3:10:00 PM EST, 1 cap, PO, bid, Disp# 14 cap, X 7 day, Stop: 12/06/24 3:10:00 PM EST, Pharmacy: [facility]/pharmacy #[id number] Start Date: 11/29/24 Stop Date: 12/06/24 Status: Ordered esomeprazole 40 mg oral delayed release capsule Start: 10/31/24 10:22:00 AM EST, See Instructions, Disp# 90 cap, Refills: 3, TAKE ONE CAPSULE BY MOUTH EVERY DAY, Pharmacy: [facility]/pharmacy #[id number] Start Date: 10/31/24 Status: Ordered ezetimibe 10 mg oral tablet Start: 07/18/24 3:52:00 PM EDT, 1 tab, PO, Daily, Disp# 90 tab, Refills: 3, Pharmacy: [facility] Start Date: 07/18/24 Status: Ordered fexofenadine 180 mg oral tablet Start: 07/10/12 11:55:00 AM EDT, 1 tab, PO, Daily Start Date: 07/10/12 Status: Ordered Flonase 0.05 mg/inh nasal spray Start: 05/11/11 3:34:00 PM EDT, 2 spray, intranasal, Daily, PRN: allergy symptoms Start Date: 05/11/11 Status: Ordered Incruse Ellipta 62.5 mcg/inh inhalation powder Start: 06/08/24 4:50:00 PM EDT, See Instructions, Disp# 90 blister, Refills: 3, one inhalation daily. doses should be taken at least 24 hours apart, Pharmacy: [facility]/pharmacy #[id number] Start Date: 06/08/24 Status: Ordered ketoconazole 2% topical cream Start: 01/19/23 1:37:00 PM EST, See Instructions, Disp# 30 g, Refills: 1, APPLY A THIN FILM TO BOTH PALMS TWICE DAILY, Pharmacy: [facility] Start Date: 01/19/23 Status: Ordered Lyrica 75 mg oral capsule Start: 11/29/24 3:18:00 PM EST, 1 cap, PO, bid, Disp# 180 cap, Refills: 3, Pharmacy: [facility]/pharmacy #[id number] Start Date: 11/29/24 Status: Ordered magnesium oxide 500 mg oral tablet Start: 11/01/13 10:42:00 AM EST, 1 tab, PO, Daily Start Date: 11/01/13 Status: Ordered meclizine 12.5 mg oral tablet Start: 10/31/24 10:22:00 AM EST, See Instructions, Disp# 90 tab, Refills: 11, TAKE 1 TABLET, ORALLY, THREE TIMES DAILY IF NEEDED FOR DIZZINESS., Pharmacy: [facility]/pharmacy #[id number] Start Date: 10/31/24 Status: Ordered Mucinex DM Start: 06/10/10 1:38:47 PM EDT, 1 tab, PO, qhs, Refills: 0, current medication from another provider Start Date: 06/10/10 Status: Ordered Narcan 0.4 mg/ml injectable solution Start: 01/28/20 3:22:00 PM EDT, 0.4 mg =, subQ, ONCE, Disp# 1 each, Refills: 1, Pharmacy: [facility] [place] Start Date: 01/28/20 Status: Ordered predniSONE 50 mg oral tablet Start: 11/29/24 3:10:00 PM EST, 1 tab, PO, Daily, Disp# 5 tab, Pharmacy: [facility]/pharmacy #[id number] Start Date: 11/29/24 Stop Date: 12/04/24 Status: Ordered Pulmicort Respules 1 mg/2 mL inhalation suspension Start: 03/16/24 3:03:00 PM EDT, 2 mL, NEB, Daily, Disp# 120 mL, Refills: 6, [id number] Start Date: 03/16/24 Status: Ordered rosuvastatin 10 mg oral tablet Start: 12/16/23 4:09:00 PM EST, 1 tab, PO, qhs, Disp# 90 tab, Refills: 3, [id number] Start Date: 12/16/23 Status: Ordered rosuvastatin 5 mg oral capsule Start: 06/29/24 2:38:00 PM EDT Start Date: 06/29/24 Status: Ordered Slow Fe (as elemental iron) 45 mg oral tablet, extended release Start: 09/29/21 2:43:00 PM EST, 1 tab, PO, Daily, Disp# 90 tab, Refills: 3, take with 500mg vit c daily., Pharmacy: [facility] Start Date: 09/29/21 Status: Ordered Tandem Plus oral capsule Start: 11/18/20 2:07:00 PM EST, 1 cap, PO, Daily, Disp# 90 cap, Refills: 3, Pharmacy: [facility] Start Date: 11/18/20 Status: Ordered triamcinolone 0.5% topical cream Start: 09/01/23 1:51:00 PM EDT, 1 appl, topical, bid, Disp# 15 g, Refills: 2, apply a thin film to scalp, Pharmacy: [facility] Start Date: 09/01/23 Stop Date: 09/22/23 Status: Ordered varenicline 0.5 mg-1 mg oral tablet Start: 07/03/24 8:07:00 AM EDT, See Instructions, Disp# 1 kit, Starter pack: Take 0.5mg po daily x 3days, then 0.5mg po BID on days 4-7, the 1 mg po BID starting on day 8., [id number] Start Date: 07/03/24 Status: Ordered Vitamin B-12 1000 mcg oral tablet Start: 07/10/12 12:02:00 PM EDT, 1 tab, PO, Daily Start Date: 07/10/12 Status: Ordered Vitamin C 25 mg oral tablet, chewable Start: 11/30/19 1:53:00 PM EST, 1 tab, PO, Daily Start Date: 11/30/19 Status: Ordered warfarin 1 mg oral tablet Start: 11/29/24 3:19:00 PM EST, See Instructions, Disp# 90 tab, Refills: 3, two tabs four days a week, Pharmacy: [facility] #[id number] Start Date: 11/29/24 Status: Ordered warfarin 3 mg oral tablet Start: 06/21/24 10:40:00 AM EDT, 1 tab, PO, Daily, Disp# 90 tab, Refills: 5, Pharmacy: [facility] [address] #[id number] Start Date: 06/21/24 Status: Ordered Mental Status 11/29/24 Barriers to Learning one year Vision imp airment, Other: glasses Mandatory Health Literacy Documentation Yes Health Literacy Communication Barriers N ever Primary Language [place] Problem List Condition Confirmation Course Effective Dates Status Health Status Informant Coagulation deficiency Confirmed Active Warfarin anticoagulation Confirmed Active 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 Active CEA - Carotid endarterectomy 1 Confirmed Active Chronic generalized pain Confirmed Active COPD Confirmed Active RSD (reflex sympathetic dystrophy) Confirmed Active Limb pain Confirmed Active H/O agent [place]ia exposure Confirmed Active (HFpEF) heart failure with preserved ejection fraction Confirmed Active Inguinal hernia Confirmed Active IVC - Insertion of inferior vena caval filter Confirmed Active Metacarpophalangeal joint pain Confirmed Active Anxiety and depression Confirmed Active Hyperlipidemia Confirmed Active PAD (peripheral artery disease) Confirmed Active Innominate artery stenosis Confirmed Active Subclavian artery stenosis, right Confirmed Active Tobacco user Confirmed Active 1right Diagnosis Diagnosis Type Effective Dates Health Status Clinical Service Informant Chronic anticoagulation Discharge Diagnosis 07/09/24 Non-Specified (HFpEF) heart failure with preserved ejection fraction Discharge Diagnosis 11/29/24 Non-Specified Atherosclerosis of leg with intermittent claudication Discharge Diagnosis 11/29/24 Non-Specified Coagulation deficiency Discharge Diagnosis 11/29/24 Non-Specified COPD Discharge Diagnosis 11/29/24 Non-Specified Frontal sinusitis Discharge Diagnosis 11/29/24 Non-Specified PAD (peripheral artery disease) Discharge Diagnosis 11/29/24 Non-Specified Innominate artery stenosis Discharge Diagnosis 11/29/24 Non-Specified Subclavian artery stenosis, right Discharge Diagnosis 11/29/24 Non-Specified Procedures Procedure Date Related Diagnosis Body Site Status RUE Angiogram w/ HEALTH POLICY ANALYST subclavian 01/27/24 Completed X-ray of cervical spine 1 05/19/23 Completed Examining eye 2 09/16/[address] of right lower extremity with contrast 3 03/09/21 Completed Venous doppler ultrasonography 4 03/09/21 Completed Eye examination 5 01/27/21 Complet ed Colonoscopy 6 07/14/18 Completed XR Chest 7 02/27/13 Completed bilateral iliac artery stents 10/30/12 Completed colonoscopy 8 10/27/12 Completed XR Chest 9 05/08/12 Completed Colonoscopy 12/03/11 Completed Kidney Stones Removed 11/24/11 Com pleted Cystoscopy W/ Ureteroscopy 09/09/11 Completed Lithotripsy using laser 09/09/11 C ompleted Biopsy of prostate, bladder, kidney [address] Paranasal Sinuses 10 12/19/09 C ompleted XR Chest 11 12/19/09 Completed XR Chest 12 11/04/[address] Head or Brain w/o Contrast 13 12/16/08 Completed US Carotid Duplex-Bilateral 14 07/12/08 Completed Colonoscopy 15 10/19/07 Completed US Duplex Scan Bilateral 16 01/26/06 Completed US LE Arteries or Bypass grafts 17 01/26/06 Completed EEG 18 03/29/05 Completed MRI Brain unenhanced 19 03/28/05 C ompleted ECG 20 03/25/05 Completed XR Cervical Spine 21 06/02/98 Comp leted Back Surgery 1990 Completed [place] Filter 1990 Complet ed Lumbar sympathectomy 1990 Comp leted Tonsillectomy and adenoidectomy 1952 Completed Carotid artery dissection Completed kidney stone removed Comp leted 1IMPRESSION: Degenerative changes without edvidence of acute abormality. 2impression patient is experiencing epiphora in his right eye due to blockage of the nasolacrimal system 31. Generalized subcutaneous edema compatible with lymphedema or cellulitis. No evidence of soft tissue abscess or subcutaneous emphysema. 2. No discrete soft tissue wound is appreciated. 3. No evidence of osteomyelitis. 4Patient right lower extremity venous system. No evidence of acute deep venous thrombosis of the right lower extremity. Patient left lower extremity venous system. No evidence of acute deep venous thrombosis of the leftlower extremity. 5Impression: Age related nuclear Cataract Bilateral 6Preparation of the colon was fair. Hemorrhoids found on perianal exam. Diverticulosis in the sigmoid colon. Three 2 to 4mm polyps in the sigmoid colon, in the transverse colon and in the ascending colon, removed with a cold snare. Resected and retrieved. One 10mm polyp in the transverse colon, removed using injection-lift and a hot snare. Resected and retrieved. Clip was placed. Lipoma in the ascending colon. The examination was otherwise normal. Repeat exam in two years. 7[facility] 8[facility] Paz 9[facility] 10[facility] 11[facility] 12[facility] 13[facility] 14[facility] 15[facility] 16[facility] 17[facility] 18[facility] 19[facility] 20[facility] 21[facility] Vital Signs Most recent to oldest [Reference Range]: 1 Patient Weight 68.2 kg (11/29/24 2:43 PM) Temperature [36.5-37.9 DegC] 36.9 DegC (11/29/24 2:43 PM) Heart Rate 81 bpm (11/29/24 2:43 PM) Respiratory Rate 19 br/min (11/29/24 2:43 PM) Blood Pressure 114/70mmHg (11/29/24 2:43 PM) Cuff Pulse Pressure 44 mmHg (11/29/24 2:43 PM) Social History Social History Type Response Tobacco Current every day sm oker, Cigarettes, 1 per day. 47 year(s). 1 Smoking Status Current every day li ght smoker Sex Male Sex Representation Male (finding) 1Also uses an electric cigarette FCM Outpt Note * MD Alberto, Robert P: PERFORM Event Display: FCM Outpt Note Authored Date: [id number] Chief Complaint 3 mon f/u. Sinus congestion, sore throat, productive cough, ear aches x1wk. History of Present Illness Cough for 1 week, went to Urgent Care and started z-zully and prednisone and then sick again and has diarrhea for a week or more. BM 5-6 times a day, liquid and explodes. Physical Exam Vitals & Measurements T:36.9C HR:81(Monitored) RR:19 BP:114/70 SpO2:96% WT:68.2kg WT:68.200kg(Dosing) PHQ2 Data(Data Documented on:11/29/2024 14:40) Emotional health assessment NEGATIVE Gen - no acute distress Lungs - decreased throughout Heart - regular sinuses - congested bilaterally Well hydrated Assessment/Plan 1.(HFpEF) heart failure with preserved ejection fraction Sees Cardiology - needs to reschedule. Sees Dr. Baxter 2.Atherosclerosis of leg with intermittent claudication Sees Cardiolgy and will see Dr. Porras 3.Coagulation deficiency [facility] 4.COPD Still smoking and having CT chest and sees Dr. Enriquez 5.Frontal sinusitis Will Rx doxycyclinemg BID for 7 days. He has diarrhea and not dehydrated today. Doxycyclinemay help with this. He is somewhat more short of breath with his COPD. Will also prescribe prednisone 50 mg daily for 5 days. Try Metamucil for diarrhea and continue hydration 6.Innominate artery stenosis Seeing Dr. Porras 7.PAD (peripheral artery disease) Encourage smoking cessation 8.Subclavian artery stenosis, right Seeing Dr. Porras I have personally spent 33minutes performing ivbh-ec-hinf and epg-tkig-jb-face activities on thisdate of service. My activities included reviewing past records prior tothe encounter, reviewed past lab results,with extensive counseling. Problem List/Past Medical History Ongoing (HFpEF) heart failure with preserved ejection fraction Anxiety and depression Atherosclerosis of leg with intermittent claudication CEA - Carotid endarterectomy Chronic generalized pain Coagulation deficiency COPD H/O agent [place] exposure Hyperlipidemia Inguinal hernia Innominate artery stenosis IVC - Insertion of inferior vena caval filter Limb pain Metacarpophalangeal joint pain PAD (peripheral artery disease) RSD (reflex sympathetic dystrophy) Subclavian artery stenosis, right Tobacco user Warfarin anticoagulation Resolved Acute URI Atherosclerotic peripheral vascular disease Carotid artery stenosis Claudication Colon polyps Contusion of knee COPD COPD with exacerbation Cough CVA - Cerebrovascular accident DVT - Deep vein thrombosis Hernia 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 (hypertension) 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/antiplatelets Lump on finger Peripheral arterial disease PVD (peripheral vascular disease) RSD (reflex sympathetic dystrophy) Procedure/Surgical History RUE Angiogram w/ HEALTH POLICY ANALYST subclavian| Service Date: 01/27/2024X-ray of cervical spine| Service Date: 05/19/2023Examining eye| Service Date: 09/16/2021T of right lower extremity with contrast|Service Date: 03/09/2021Venous doppler ultrasonography| Service Date: 03/09/2021ye examination| Service Date: 01/27/2021olonoscopy| Service Date: 07/14/2018XR Chest| Service Date: 02/27/2013ilateral iliac artery stents| Service Date: 10/30/2012colonoscopy| Service Date: 10/27/2012XR Chest| Service Date: 05/08/2012Kidney Stones Removed| Service Date: 11/24/2011Cystoscopy W/ Ureteroscopy| Service Date: 09/09/2011Lithotripsy using laser| Service Date: 09/09/2011iopsy of prostate, bladder, kidney| Service Date: 2010XR Chest| Service Date: 12/19/2009CT Paranasal Sinuses| Service Date: 12/19/2009XR Chest| Service Date: 11/04/2009CT Head or Brain w/o Contrast| Service Date: 12/16/2008US Carotid Duplex-Bilateral| Service Date: 07/12/2008Colono scopy| Service Date: 10/19/2007US LE Arteries or Bypass grafts| Service Date: 01/26/2006US Duplex Scan Bilateral| Service Date: 01/26/2006EEG| Service Date: 03/29/2005MRI Brain unenhanced| Service Date: 03/28/2005ECG| Service Date: 03/25/2005XR Cervical Spine| Service Date: 06/02/1998[place] Filter| Service Date: 1990Back Surgery| Service Date: 1990Lumbar sympathectomy| Service Date: 1990Tonsillectomy and adenoidectomy| Service Date: arotid artery dissectionkidney stone removed Medications albuterol(Albuterol (Eqv-Proventil HFA) 90 mcg/inh inhalation aerosol), 2 puff, inhaled, q6h, 3 refills albuterol-ipratropium(albuterol-ipratropium 2.5 mg-0.5 mg/3 mL inhalation solution), 3 mL, inhaled,tid, PRN, 6 refills albuterol-ipratropium(Combivent Respimat 20 mcg-100 mcg/inh inhalation aerosol), See Instructions, 2 refills ascorbic acid(Vitamin C 25 mg oral tablet, chewable), 25 mg= 1 tab, PO, Daily aspirin(aspirin 81 mg oral tablet), 81 mg= 1 tab, PO, Daily budesonide(Pulmicort Respules 1 mg/2 mL inhalation suspension), 1 mg= 2 mL, NEB, Daily, 6 refills calcium and vitamin D combination(Caltrate 600 with D), 1 tab, PO, Daily cilostazol(cilostazol 100 mg oral tablet), See Instructions, 3 refills clopidogrel(clopidogrel 75 mg oral tablet), 1 tab, PO, Daily cyanocobalamin(Vitamin B-12 1000 mcg oral tablet), 1000 mcg= 1 tab, PO, Daily dextromethorphan-guaifenesin(Mucinex DM), 1 tab, PO, qhs docusate(Colace), 100 mg, PO, bid doxycycline(doxycycline hyclate 100 mg oral capsule), 100 mg= 1 cap, PO, bid esomeprazole(esomeprazole 40 mg oral delayed release capsule), See Instructions, 3 refills ezetimibe(ezetimibe 10 mg oral tablet), 1 tab, PO, Daily ferrous sulfate(Slow Fe (as elemental iron) 45 mg oral tablet, extended release), 45 mg= 1 tab, PO,Daily, 3 refills fexofenadine(fexofenadine 180 mg oral tablet), 180 mg= 1 tab, PO, Daily fluticasone nasal(Flonase 0.05 mg/inh nasal spray), 2 spray, intranasal, Daily, PRN ketoconazole topical(ketoconazole 2% topical cream), See Instructions, 1 refills magnesium oxide(magnesium oxide 500 mg oral tablet), 500 mg= 1 tab, PO, Daily meclizine(meclizine 12.5 mg oral tablet), See Instructions, 11 refills multivitamin with minerals(Tandem Plus oral capsule), 1 cap, PO, Daily, 3 refills naloxone(Narcan 0.4 mg/ml injectable solution), 0.4 mg, subQ, ONCE, 1 refills predniSONE(predniSONE 50 mg oral tablet), 50 mg= 1 tab, PO, Daily pregabalin(Lyrica 75 mg oral capsule), 75 mg= 1 cap, PO, bid, 3 refills rosuvastatin(rosuvastatin 5 mg oral capsule) rosuvastatin(rosuvastatin 10 mg oral tablet), 10 mg= 1 tab, PO, qhs, 3 refills triamcinolone topical(triamcinolone 0.5% topical cream), 1 appl, topical, bid, 2 refills ubiquinone(CoQ10 100 mg oral capsule), 100 mg= 1 cap, PO, bid umeclidinium(Incruse Ellipta 62.5 mcg/inh inhalation powder), See Instructions, 3 refills varenicline(varenicline 0.5 mg-1 mg oral tablet), See Instructions warfarin(warfarin 3 mg oral tablet), 1 tab, PO, Daily, 5 refills Allergies CymbaltaPharyngeal swelling, Hives IVP dyeSwelling of tongue, Pharyngeal swelling, Hives NSAIDS (nonsteroidal anti-inflammatory agents)Swelling of tongue, Pharyngeal swelling, Hives PCN (penicillin)Swelling of tongue, Pharyngeal swelling, Hives Tessalon Perlesunable to swallow - throat goes numb & muscles won't work Tolectinhives, itchy sulfa drugsPharyngeal swelling, Hives Social History Smoking Status Current every day light smoker Alcohol - Denies Alcohol Use Employment/School - Not employed or in school Status:Retired Exercise - Regular exercise Exercise type:Walking Home/Environment Lives with:Spouse Substance Abuse - Denies Substance Abuse Tobacco Use:Current every day smoker Type:Cigarettes Tobacco use per day:1 Number of years:47 - Comments: Also uses an electric cigarette Family History Diabetes: Sister and Brother. Fibromyalgia..: Sister and Brother. Heart disease: Mother. Pancreatic cancer: Father. Health Status Family Member(s) Immunizations Vaccine Date Status RSV vaccine preF3, recombinant 09/05/2024 Recorded influenza virus vaccine, inactivated 09/05/2024 Recorded SARS-CoV-2 (COVID-19) mRNA-vacc - [id number] 09/05/2024 Recorded tetanus/diphtheria/pertuss, acel (Tdap) 03/09/2024 Recorded influenza virus vaccine, inactivated 09/01/2023 Given pneumococcal 20-valent conjugate vaccine 11/18/2022 Given influenza virus vaccine, inactivated 11/18/2022 Given SARS-CoV-2 mRNA (Pfizer 12+) bivalent 12/09/2021 Recorded influenza virus vaccine, inactivated 10/05/2021 Given SARS-CoV-2 mRNA ([id number]) 03/25/2021 Recorded SARS-CoV-2 mRNA ([id number]) 03/04/2021 Recorded influenza virus vaccine, inactivated 07/24/2020 Given influenza virus vaccine, inactivated 10/26/2019 Given influenza virus vaccine, inactivated 10/09/2018 Given influenza virus vaccine, inactivated 09/13/2017 Given influenza virus vaccine, inactivated 09/07/2016 Given zoster vaccine live 09/23/2015 Given influenza virus vaccine, inactivated 09/23/2015 Given pneumococcal 13-valent vaccine 08/30/2014 Given influenza virus vaccine, inactivated 08/30/2014 Given influenza virus vaccine, inactivated 08/29/2013 Given influenza virus vaccine, inactivated 08/25/2012 Given tetanus/diphtheria/pertuss, acel (Tdap) 10/16/2010 Recorded influenza virus vaccine, H1N1 10/07/2009 Recorded Comments : 2021-05-12: Historical information-source unspecified pneumococcal 23-valent vaccine 08/27/2008 Recorded Recommendations Health Maintenance Pending(in the next year) OverDue Medicare Annual Wellness Visit due05/12/22and every 1year Due Adult COVID-19 Vaccination due11/29/24Unknown Frequency Adult Social Determinants of Health Screening due11/29/24Unknown Frequency Shingles Vaccine due11/29/24One-time only Due In Future Adult Influenza Vaccine not due until05/21/25and every 1year Satisfied(in the past 1 year) Satisfied Adult Influenza Vaccine on09/05/24.Satisfied by SARAH Pete Paul Adult Tdap/Td Vaccine on03/09/24.Satisfied by SARAH Pete Paul Body Mass Index on06/29/24.Satisfied by SARAH Hassan Kyla Lipid Screening on12/15/23.Satisfied by Contributor_system, [facility] Electronic Signature on File Electronically Reviewed/Signed by: Robert Dominguez MD Author Signature Dt/Tm:11/29/2024 03:12 PM Department of Family Medicine ISABELLW Patient Care team information Care Team Personnel Name: MD Hsu Jonathan D Position: Physician - Family Med Member Role: Lifetime Relationship Address: [address] [place] [address] [place] Name: SRINATH Seo Kimberly A Position: Physician Asst Exmpt - Family Med Member Role: Lifetime Relationship Address: [address] [place] [address] [place] Name: SILVESTRE Colón Bridgette S Position: Referring Member Role: Primary Care Provider Address: [place] [address] [place] Care Team Related Persons Name: CAROLYN VIDAL Name: CAROLYN VIDAL Name: SHEKHAR VIDAL"
--- OUTSIDE RECORDS SUMMARY | 2024-12-07 17:39 | External Medical Summary | Summary of Care ---
Author Name Unknown Organization [facility] Address [address] [place] [address] Phone [phone] Care Team Providers Care Systematic Theology Professor Name Role Phone Robert Dominguez MD Primary Care Provide r Reason for Visit * Reason Comments Cold Symptoms Encounter Details Date Type Department Care Team (Latest Contact Info) Description 11/07/2024 2:30 PM EST [facility] Visit [facility], [place] [address] [place] [address] [place] [phone] Anya Moody PA-C [address] [place] [address] [place] [phone] COPD exacerbation (HCC)*; LRTI (lower respiratory tract infection); Diarrhea, unspecified type Allergies Active Allergy Reactions Criticality Noted Date Comments Benzonatate 03/09/2021 Other reaction(s): unable to swallow - throat goes numb & muscles won't work Duloxetine Hydrochloride Hives 10/25/2005 Duloxetine Hcl 03/09/2021 Other reaction(s): Hives, Pharyngeal swelling Ivp Dye Other (Please comment) 10/25/2005 vomiting Nsaids Hives 03/09/2021 Other reaction(s): Pharyngeal swelling Other - Drugs Hives 10/25/2005 most anti inflammatory drugs Penicillins Anaphylaxis High 10/25/2005 Sulfa Antibiotics Anaphylaxis High 10/25/2005 Tolmetin 03/09/2021 Other reaction(s): hives, itchy documented as of this encounter (statuses as of 11/07/2024) Medications CALCIUM + D 600-200 MG-UNIT PO TABS daily 0 5 Active MULTIVITAMIN PO TABS daily 0 5 Active COUMADIN 3 MG PO TABS 1 TABLET DAILY 0 6 Active FEXOFENADINE HCL 180 MG PO TABS Take 1 Tablet by mouth in the morning. . Active PLETAL 100 MG PO TABS Take 1 Tablet by mouth in the morning and 1 Tablet before bedtime. Take 30 minutes before breakfast and supper. Active TRIAMCINOLONE ACETONIDE 0.5 % EX CREA apply twice daily as needed Active MECLIZINE HCL 12.5 MG PO TABS Take by mouth 3 times a day as needed. Active COLACE 100 MG PO CAPS Take 1 Capsule by mouth in the morning and 1 Capsule before bedtime. . Active AMITRIPTYLINE HCL 50 MG PO TABS Take 1 Tablet by mouth at bedtime. Active ZETIA 10 MG PO TABS Take 1 Tablet by mouth in the morning. . Active NEXIUM 40 MG PO PACK Take 40 mg by mouth daily before breakfast. Active LYRICA 75 MG PO CAPS Take 1 Capsule by mouth in the morning and 1 Capsule before bedtime. . Active VITAMIN B-12 1000 MCG PO TABS Take 1 Tablet by mouth in the morning. . Active albuterol-ipratr opium (DUONEB) 2.5-0.5 MG/3ML nebulizer solution Inhale 3 mL via nebulizer every 6 hours as needed. Active Chester-3 Fatty Acids (FISH OIL) 1000 MG Capsule Take 1 Capsule by mouth in the morning. Active traMADol (ULTRAM) 50 MG Tablet Take 1 Tablet by mouth every 6 hours as needed for Pain. Active temazepam (RESTORIL) 15 MG Capsule Take 1 Capsule by mouth at bedtime as needed for Sleep. Active Rosuvastatin Calcium 5 MG Oral Tablet Take 1 Tablet by mouth every night at bedtime. Active Probiotic Product (PROBIOTIC-10 ULTIMATE) CAPS Take by mouth. Active guaifenesin ER (MUCINEX) 600 MG [id number]: as needed Take 1 Tablet by mouth in the morning and 1 Tablet before bedtime. Active Ketoconazole 2 % cream Apply topically to affected area daily. Apply to BL hands Active Ascorbic Acid (VITAMIN C) 100 MG chewable tablet Take 25 mg by mouth daily. Active clopidogrel (PLAVIX) 75 MG TabletIndication s:in evening Take 1 Tablet by mouth in the morning. Active PURACYN PLUS RX wound & skin care fliptop SOLN Apply topically to affected area daily. Apply to right lower extremity wounds 1000 mL 0 Active silver sulfadiazine (SILVADENE) 1 % cream Apply topically to affected area daily. To affected area. 50 g 1 0 Active Aspirin Buf(CaCarb-MgCar b-MgO) 81 MG Oral Tablet 81 mg. 0 Active Tandem Plus 162-115.2-1 MG Oral Capsule Take 1 Cap by mouth daily. 0 Active Vitamin D3 125 MCG (5000 UT) Oral Capsule Take 3,000 Units by mouth daily. Active Systane Complete 0.6 % Ophthalmic Solution (Propylene Glycol) Instill 1 Drop into eye. Active Ipratropium-Albu terol 20-100 MCG/ACT Inhalation Aerosol Solution (Combivent Respimat) Inhale 1 Puff by mouth in the morning and 1 Puff at noon and 1 Puff in the evening and 1 Puff before bedtime. May take additional inhalations as required not to exceed 6 in 24 hours . Active Naloxone HCl 0.4 MG/ML Injection Solution Cartridge Inject 0.4 mg under the skin once. Active Aspirin 81 MG Oral Tablet Chewable (Aspirin 81) Take 1 Tablet by mouth in the morning. Active Fluticasone Propionate 50 MCG/ACT Nasal Suspension (Flonase) Administer 1 Sarver into nostril in the morning. Active Tobramycin-Dexam ethasone 0.3-0.1 % Ophthalmic Suspension (Tobradex) Instill into the right eye 1 Drop in the morning AND 1 Drop at noon AND 1 Drop in the evening AND 1 Drop before bedtime. Shake before each use.. 2.5 mL 2 Active Erythromycin 5 MG/GM Ophthalmic Ointment Apply a small amount of ointment to right lower eyelid incision four times daily for two weeks, then at bedtime only. 3.5 g 2 2 Active Warfarin Sodium 3 MG Oral Tablet (Coumadin) Take 1 Tablet (3 mg) by mouth daily. 30 Tablet 5 11/17/2022 3:13 PM EST 2 Active Amitriptyline HCl 50 MG Oral Tablet (Elavil) Take 1 Tablet by mouth at bedtime. 90 Tablet 3 12/20/2022 4:54 PM EST 2 Active Additional Information Patient not taking.Reported on 01/18/2024 Ketoconazole 2 % External Cream APPLY A THIN FILM TO BOTH PALMS TWICE DAILY 30 g 1 11/18/2022 1:01 PM EST 2 Active Rosuvastatin Calcium 5 MG Oral Tablet (Crestor) TAKE ONE TABLET BY MOUTH AT BEDTIME 90 Tablet 3 07/21/2023 3:44 PM EDT 2 Active Warfarin Sodium 3 MG Oral Tablet (Coumadin) Take 1 Tablet by mouth daily. 30 Tablet 5 12/20/2022 4:54 PM EST 2 Active Triamcinolone Acetonide 0.5 % External Cream (Aristocort) Apply a thin film topically to the scalp twice daily for 7 days 15 g 2 10/21/2023 4:36 PM EST 2 Active predniSONE 10 MG Oral Tablet (Deltasone) Take 4 tabs daily for 4 days, then 3 tabs daily for 4 days, then 2 tabs daily for 4 days, then 1 tab daily for 4 days, then stop. 40 Tablet 11/18/2022 1:01 PM EST 2 Active Temazepam 7.5 MG Oral Capsule (Restoril) Take 1 Capsule by mouth at bedtime as needed for sleep 30 Capsule 02/18/2023 1:50 PM EDT 2 Active traMADol HCl 50 MG Oral Tablet (Ultram) Take 1 tablet by mouth every 4 to 6 hours as needed for moderate (4-6) pain 60 Tablet 2 Active Ketoconazole 2 % External Cream APPLY A THIN FILM TO BOTH PALMS TWICE DAILY 30 g 1 04/06/2023 2:55 PM EDT 3 Active Temazepam 7.5 MG Oral Capsule (Restoril) Take 1 Capsule by mouth at bedtime as needed for sleep 30 Capsule 01/25/2023 3:34 PM EST 3 Active traMADol HCl 50 MG Oral Tablet (Ultram) Take 1 Tablet by mouth 2 times a day as needed for moderate pain 60 Tablet 01/25/2023 3:34 PM EST 3 Active Warfarin Sodium 3 MG Oral Tablet (Coumadin) Take 1 Tablet by mouth daily. 30 Tablet 5 04/25/2023 1:40 PM EDT 3 Active Ezetimibe 10 MG Oral Tablet (Zetia) Take 1 Tablet by mouth daily. 90 Tablet 3 06/15/2023 2:27 PM EDT 3 Active Albuterol Sulfate HFA 108 (90 Base) MCG/ACT Inhalation Aerosol Solution Inhale 2 puffs every 6 hours 54 g 3 10/21/2023 4:36 PM EST 3 Active Umeclidinium [place] 62.5 MCG/ACT Inhalation Aerosol Powder Breath Activated (INCRUSE ellipta) Inhale 1 inhalfation daily - doses should be take at least 24 hours apart. 90 Each 3 02/06/2024 11:12 AM EDT 3 Active Budesonide-Formo terol Fumarate 160-4.5 MCG/ACT Inhalation Aerosol (Symbicort) Inhale 2 puffs by mouth 2 times a day. 30.6 g 3 12/26/2023 3:50 PM EST 3 Active Warfarin Sodium 1 MG Oral Tablet (Coumadin) Take 1 tab by mouth Daily 90 Tablet 2 12/26/2023 3:50 PM EST 3 Active Amitriptyline HCl 25 MG Oral Tablet (Elavil) Take 1 Tablet by mouth every night at bedtime. 90 Tablet 02/18/2023 1:50 PM EDT 3 Active Additional Information Patient not taking.Reported on 01/18/2024 Albuterol Sulfate HFA 108 (90 Base) MCG/ACT Inhalation Aerosol Solution Inhale 2 puffs by mouth every 6 hours As Needed for shortness of breath or wheezing 8.5 g 3 02/22/2024 2:57 PM EDT 3 Active Budesonide-Formo terol Fumarate 160-4.5 MCG/ACT Inhalation Aerosol (Symbicort) inhale 2 puffs by mouth twice a day 10.2 g 1 3 Active Incruse Ellipta 62.5 MCG/ACT Inhalation Aerosol Powder Breath Activated (umeclidinium Hil[place]) Inhale 1 puff by mouth daily. 30 Each 1 08/24/2023 4:32 PM EDT 3 Active Ipratropium-Albu terol 0.5-2.5 (3) MG/3ML Inhalation Solution (Duoneb) 3 mL inhaled via nebulizer every 6 hours As Needed for shortness of breath or wheezing 180 mL 5 12/26/2023 3:50 PM EST 3 Active Temazepam 7.5 MG Oral Capsule (Restoril) Take 1 Capsule by mouth at bedtime as needed for sleep. 30 Capsule 08/29/2023 3:12 PM EDT 3 Active Cilostazol 100 MG Oral Tablet (Pletal) TAKE ONE TABLET BY MOUTH TWICE A DAY 30 MINUTES BEFORE BREAKFAST AND SUPPER 60 Tablet 3 09/21/2023 11:24 AM EDT 3 Active Esomeprazole Magnesium 40 MG Oral Capsule Delayed Release TAKE ONE CAPSULE BY MOUTH EVERY DAY 90 Capsule 3 02/22/2024 2:57 PM EDT 3 Active Temazepam 7.5 MG Oral Capsule (Restoril) Take 1 capsule by mouth at bedtime as needed for sleep 30 Capsule 09/21/2023 11:24 AM EDT 3 Active Triamcinolone Acetonide 0.5 % External Cream (Aristocort) 1 appl topical bid,x7 day,Instr:apply a thin film to scalp 15 g 2 3 Active predniSONE 10 MG Oral Tablet (Deltasone) Take 2 tablets by mouth daily with food for five days, then take 1 tablet by mouth daily for five days. 15 Tablet 09/06/2023 12:24 PM EDT 3 Active Cilostazol 100 MG Oral Tablet (Pletal) TAKE ONE TABLET BY MOUTH TWICE A DAY 30 MINUTES BEFORE BREAKFAST AND SUPPER 60 Tablet 3 01/18/2024 4:22 PM EST 4 Active Pregabalin 75 MG Oral Capsule (Lyrica) Take 1 Capsule by mouth 2 times a day. 60 Capsule 3 02/06/2024 11:12 AM EDT 4 Active Meclizine HCl 12.5 MG Oral Tablet (Antivert) TAKE 1 TABLET, ORALLY, THREE TIMES DAILY IF NEEDED FOR DIZZINESS. 90 Tablet 11 09/05/2024 1:32 PM EDT 4 Active Ipratropium-Albu terol 20-100 MCG/ACT Inhalation Aerosol Solution (Combivent Respimat) Inhale 1 puff by mouth four times daily - may take additional inhalations as required - not to exceed 6 inhalations in 24 hours. 4 g 2 4 Active Combivent Respimat 20-100 MCG/ACT Inhalation Aerosol Solution (Ipratropium-Alb uterol) Inhale 1 puff by mouth four times daily - may take additional inhalations as required - not to exceed 6 inhalations in 24 hours. 4 g 2 05/29/2024 4:36 PM EDT 4 Active Esomeprazole Magnesium 40 MG Oral Capsule Delayed Release TAKE ONE CAPSULE BY MOUTH EVERY DAY 90 Capsule 3 05/29/2024 4:36 PM EDT 4 Active Clopidogrel Bisulfate 75 MG Oral Tablet (pLAVix) Take 1 Tablet by mouth daily. 90 Tablet 3 4 Active Warfarin Sodium 3 MG Oral Tablet (Coumadin) Take 1 tablet by mouth daily. 30 Tablet 5 4 Active Incruse Ellipta 62.5 MCG/ACT Inhalation Aerosol Powder Breath Activated (umeclidinium Hil[place]) Inhale 1 puff by mouth once daily. 90 Each 1 4 Active Ezetimibe 10 MG Oral Tablet (Zetia) Take 1 tablet by mouth daily 90 Tablet 3 4 Active Azithromycin 250 MG Oral Tablet (Zithromax)Indic ations:COPD exacerbation (HCC),LRTI (lower respiratory tract infection) Take 2 tabs by mouth on the first day, then 1 tab daily on days two through five 6 Tablet 4 11/12/20 24 Active predniSONE 20 MG Oral Tablet (Deltasone)Indic ations:COPD exacerbation (HCC),LRTI (lower respiratory tract infection) Take 2 Tablets by mouth in the morning for 5 days. 10 Tablet 4 11/12/20 24 Active documented as of this encounter (statuses as of 11/07/2024) Active Problems Problem Noted Date Diagnosed Date Mun[place] filter in place 09/23/2021 COPD (chronic obstructive pulmonary disease) 01/2021 Cellulitis of right lower extremity 03/11/2020 Peripheral vascular disease 03/11/2020 RLS (restless legs syndrome) 03/11/2020 RSD (reflex sympathetic dystrophy) 03/11/2020 Anterior epistaxis 08/25/2015 Biopsy showed an excoriation 11/25/2005 LUMBAGO 11/23/2005 Inflammation of sacroiliac joint 11/23/2005 documented as of this encounter (statuses as of 11/07/2024) Resolved Problems Problem Noted Date Diagnosed Date Resolved Date NONSPECIF SKIN ERUPT NEC 11/08/200503/2006 ADVANCE DIRECTIVE INFORMATION 10/25/2005 09/24/2024 Overview (10/25/2005): No, Advance Directive brochure given to patient. documented as of this encounter (statuses as of 11/07/2024) Immunizations Name Administration Dates Next Due COVID-19 mRNA, LNP-s, No Pre serve, 2-Dose Series (Pfizer) 12/09/2021 DTaP Dipth/Tet/Acell Pertussis (Infanrix), Peds 10/16/2010 Pneumococcal Conjugate Vacc, 13 Valent (Prevnar) 08/30/2014 Pneumococcal Polysaccharide PPV23 (Pneumovax) 08/27/2008 Seasonal Influenza Virus Vac cine, Unspecified Formulation 10/05/2021,07/24/2020,09/23/2015,08/30 Varicella Zoster Vaccine (Adult) 09/23/2015 documented as of this encounter Social History Tobacco Use Types Packs/Day Years Used Date Smoking Tobacco: Every Day Cigarettes 0.5 55 Started: [birth year]/09/1966; Last attempted to quit: 03/09/2021 Smokeless Tobacco: Never Tobacco Cessation:Ready to Q uit: Not Asked; Counseling Given: Not Answered Comments:occasionally Alcohol Use Standard Drinks/Week Comments No 0 (1 standard drink = 0.6 oz pur e alcohol) Sex and Gender Information Value Date Recorded Sex Assigned at Not on file Legal Sex Male 4:52 AM EST Gender Identity Not on file Sexual Orientation Not on file documented as of this encounter Last Filed Vital Signs Vital Sign Reading Time Taken Comments Blood Pressure 126/70 11/07/2024 3:08 PM EST Pulse 79 11/07/2024 3:08 PM EST Temperature 36.5 C (97.7 F) 11/07/2024 3:08 PM ES T Respiratory Rate 20 11/07/2024 3:08 PM EST Oxygen Saturation 95% 11/07/2024 3:08 PM EST Inhaled Oxygen Concentration - - Weight 65.3 kg (144 lb) 11/07/2024 3:08 PM EST Height - - Body Mass Index 21.27 06/21/2024 2:27 PM EDT documented in this encounter Functional Status * Are you deaf or do you have serious difficulty hearing? Answer Date of Assessment Author No 03/09/2021 10:24 PM EDT Fanny Castillo LPN * Are you blind or do you have serious difficulty seeing, even when wearing glasses? Answer Date of Assessment Author Yes 03/09/2021 10:24 PM EDT Fanny Castillo LPN * Do you have serious difficulty walking or climbing stairs? (5 years old or older) Answer Date of Assessment Author Yes 03/09/2021 10:24 PM EDT Fanny Castillo LPN * Do you have difficulty dressing or bathing? (5 years old or older) Answer Date of Assessment Author No 03/09/2021 10:24 PM EDT Fanny Castillo LPN * Because of a physical, mental, or emotional condition, do you have difficulty doing errands alone such as visiting a doctors office or shopping? (15 years old or older) Answer Date of Assessment Author No 03/09/2021 10:24 PM EDT Fanny Castillo LPN documented as of this encounter Mental Status * Because of a physical, mental, or emotional condition, do you have serious difficulty concentrating, remembering, or making decisions? (5 years old or older) Answer Entry Date Author No 03/09/2021 10:24 PM EDT Fanny Castillo LPN documented in this encounter Patient Instructions * Patient Instructions* Anya Moody PA-C - 11/07/2024 3:35 PM EST Rest Increase fluids. OK to take over the counter Tylenol or ibuprofen as needed. Follow directions on package. OK to take over the counter Coricidin Cough and Cold. Follow directions on package. OK to use over the counter Nasal saline. 2 sprays each nostril 3-4 times daily as needed. OK to use over the counter Mucinex to thin mucous. Follow directions on package. Follow up with primary care provider if no improvement in 1 week. To ER if any worsening of symptoms such as chest pain, difficulty breathing or shortness of breath. documented in this encounter Progress Notes * Anya Moody PA-C - 11/07/2024 3:28 PM EST Carlos Andrade is a 79 year old male who presents with respiratory symptoms for 1-2 week(s) Patient was accompanied by Self. HPI Severity of Symptoms: mild to moderate Modifying Factors (what was done since onset of symptoms): Mucinex, Tylenol, inhaler/nebulizer Timing (how often does it occur): daily Quality (feels like): cough, chest hurts to cough, low grade temp, sore throat, post nasal drip, Hx COPD + Smoker 1/2 ppd ROS Denies chills, ear ache, SOB, wheezing, N/V/D HISTORY Past Medical History: Diagnosis Date Elevated liver enzymes OTHER h/o blood clots Peripheral vascular disease (HCC) Personal history of colonic polyps 09/27-adenomatous polyps Polyneuropathy in other diseases classified elsewhere (HCC) Reflex sympathetic dystrophy of the lower limb Restless leg syndrome TIA (transient ischemic attack) Past Surgical History: Procedure Laterality Date COLONOSCOPY, DIAGNOSTIC (RECTUM) 10/27/12 normal, repeat 5 yrs COLONOSCOPY, DIAGNOSTIC (RECTUM) 10/27/2012 COLONOSCOPY FLEXIBLE PROXIMAL DIAGNOSTIC performed by Carlos Mesa MD at ENDOSCOPY [facility] COLONOSCOPY, DIAGNOSTIC (RECTUM) N/A 07/14/2018 poor prep/hemorrhoids on exam/diverticulosis sigmoid colon/lipoma in ascending colon/adenomatous polyps/recall 2 years/COLONOSCOPY FLEXIBLE PROXIMAL DIAGNOSTIC performed by Dain Lim MD at ENDOSCOPY [facility] CREATION OF TEAR SAC DRAIN Right 03/10/2022 DACRYOCYSTORHINOSTOMY performed by Hans Evans DO at OR [facility] OTHER 04/1991 bronson filter implanted PROB NASOLAC DUCT;REQ ANESTHES Right 03/10/2022 PROBING NASOLACRIMAL DUCT REQUIRING ANESTHESIA performed by Hans Evans DO at OR [facility] REMOVE CATARACT, INSERT LENS PROSTH Right 03/31/2021 RIGHT EXTRACAPSULAR CATARACT REMOVAL WITH INTRAOCULAR LENS performed by Harsh Sosa MD at OR [facility] REMOVE CATARACT, INSERT LENS PROSTH Left 04/14/2021 LEFT EXTRACAPSULAR CATARACT REMOVAL WITH INTRAOCULAR LENS performed by Harsh Sosa MD at OR [facility] REMOVE SYMPATHETIC NERVES, LUMBAR 08/1991 REP ECTROPION;EXT TARSAL ST Right 03/10/2022 REPAIR OF ECTROPION EXTENSIVE TARSAL STRIP performed by Hans Evans DO at OR [facility] Social History Tobacco Use Smoking status: Every Day Current packs/day: 0.00 Average packs/day: 0.5 packs/day for 55.0 years (27.5 ttl pk-yrs) Types: Cigarettes Start date: 03/09/1966 Last attempt to quit: 03/09/2021 Years since quittin.6 Smokeless tobacco: Never Tobacco comments: occasionally Substance Use Topics Alcohol use: No Vaping/E-Cigarette Use Vaping/E-Cigarette Use Never User Vaping/E-Cigarette Substances Vaping/E-Cigarette Devices Current Outpatient Medications Medication Sig Dispense Refill CALCIUM + D 600-200 MG-UNIT PO TABS daily (Patient taking differently: Take 1 Tablet by mouth in the morning.) 0 MULTIVITAMIN PO TABS daily (Patient taking differently: Take 1 Tablet by mouth in the morning.) 0 COUMADIN 3 MG PO TABS 1 TABLET DAILY (Patient taking differently: Take by mouth. Patient has activeorder for 1mg tablet daily and 3mg tablet daily. Unclear dosing he is to take per provider) 0 FEXOFENADINE HCL 180 MG PO TABS Take 1 Tablet by mouth in the morning. . PLETAL 100 MG PO TABS Take 1 Tablet by mouth in the morning and 1 Tablet before bedtime. Take 30 minutes before breakfast and supper. TRIAMCINOLONE ACETONIDE 0.5 % EX CREA apply twice daily as needed MECLIZINE HCL 12.5 MG PO TABS Take by mouth 3 times a day as needed. COLACE 100 MG PO CAPS Take 1 Capsule by mouth in the morning and 1 Capsule before bedtime. . AMITRIPTYLINE HCL 50 MG PO TABS Take 1 Tablet by mouth at bedtime. ZETIA 10 MG PO TABS Take 1 Tablet by mouth in the morning. . NEXIUM 40 MG PO PACK Take 40 mg by mouth daily before breakfast. LYRICA 75 MG PO CAPS Take 1 Capsule by mouth in the morning and 1 Capsule before bedtime. . VITAMIN B-12 1000 MCG PO TABS Take 1 Tablet by mouth in the morning. . albuterol-ipratropium (DUONEB) 2.5-0.5 MG/3ML nebulizer solution Inhale 3 mL via nebulizer every 6 hours as needed. Chester-3 Fatty Acids (FISH OIL) 1000 MG Capsule Take 1 Capsule by mouth in the morning. traMADol (ULTRAM) 50 MG Tablet Take 1 Tablet by mouth every 6 hours as needed for Pain. temazepam (RESTORIL) 15 MG Capsule Take 1 Capsule by mouth at bedtime as needed for Sleep. Rosuvastatin Calcium 5 MG Oral Tablet Take 1 Tablet by mouth every night at bedtime. Probiotic Product (PROBIOTIC-10 ULTIMATE) CAPS Take by mouth. guaifenesin ER (MUCINEX) 600 MG TB12 Take 1 Tablet by mouth in the morning and 1 Tablet before bedtime. Ketoconazole 2 % cream Apply topically to affected area daily. Apply to BL hands Ascorbic Acid (VITAMIN C) 100 MG chewable tablet Take 25 mg by mouth daily. clopidogrel (PLAVIX) 75 MG Tablet Take 1 Tablet by mouth in the morning. PURACYN PLUS RX wound & skin care fliptop SOLN Apply topically to affected area daily. Apply toright lower extremity wounds 1000 mL 0 silver sulfadiazine (SILVADENE) 1 % cream Apply topically to affected area daily. To affected area.50 g 1 Aspirin Buf(FyMdae-RzFbhr-UtS) 81 MG Oral Tablet 81 mg. Tandem Plus 162-115.2-1 MG Oral Capsule Take 1 Cap by mouth daily. Vitamin D3 125 MCG (5000 UT) Oral Capsule Take 3,000 Units by mouth daily. Systane Complete 0.6 % Ophthalmic Solution (Propylene Glycol) Instill 1 Drop into eye. Ipratropium-Albuterol 20-100 MCG/ACT Inhalation Aerosol Solution (Combivent Respimat) Inhale 1 Puffby mouth in the morning and 1 Puff at noon and 1 Puff in the evening and 1 Puff before bedtime. Maytake additional inhalations as required not to exceed 6 in 24 hours . Naloxone HCl 0.4 MG/ML Injection Solution Cartridge Inject 0.4 mg under the skin once. Aspirin 81 MG Oral Tablet Chewable (Aspirin 81) Take 1 Tablet by mouth in the morning. Fluticasone Propionate 50 MCG/ACT Nasal Suspension (Flonase) Administer 1 Sarver into nostril in themorning. Tobramycin-Dexamethasone 0.3-0.1 % Ophthalmic Suspension (Tobradex) Instill into the right eye 1 Drop in the morning AND 1 Drop at noon AND 1 Drop in the evening AND 1 Drop before bedtime. Shake before each use.. 2.5 mL 0 Erythromycin 5 MG/GM Ophthalmic Ointment Apply a small amount of ointment to right lower eyelid incision four times daily for two weeks, then at bedtime only. 3.5 g 2 Warfarin Sodium 3 MG Oral Tablet (Coumadin) Take 1 Tablet (3 mg) by mouth daily. 30 Tablet 5 Ketoconazole 2 % External Cream APPLY A THIN FILM TO BOTH PALMS TWICE DAILY 30 g 1 Rosuvastatin Calcium 5 MG Oral Tablet (Crestor) TAKE ONE TABLET BY MOUTH AT BEDTIME 90 Tablet 3 Warfarin Sodium 3 MG Oral Tablet (Coumadin) Take 1 Tablet by mouth daily. 30 Tablet 5 Triamcinolone Acetonide 0.5 % External Cream (Aristocort) Apply a thin film topically to the scalp twice daily for 7 days 15 g 2 predniSONE 10 MG Oral Tablet (Deltasone) Take 4 tabs daily for 4 days, then 3 tabs daily for 4 days, then 2 tabs daily for 4 days, then 1 tab daily for 4 days, then stop. 40 Tablet 0 Temazepam 7.5 MG Oral Capsule (Restoril) Take 1 Capsule by mouth at bedtime as needed for sleep 30 Capsule 0 traMADol HCl 50 MG Oral Tablet (Ultram) Take 1 tablet by mouth every 4 to 6 hours as needed for moderate (4-6) pain 60 Tablet 0 Ketoconazole 2 % External Cream APPLY A THIN FILM TO BOTH PALMS TWICE DAILY 30 g 1 Temazepam 7.5 MG Oral Capsule (Restoril) Take 1 Capsule by mouth at bedtime as needed for sleep 30 Capsule 0 traMADol HCl 50 MG Oral Tablet (Ultram) Take 1 Tablet by mouth 2 times a day as needed for moderatepain 60 Tablet 0 Warfarin Sodium 3 MG Oral Tablet (Coumadin) Take 1 Tablet by mouth daily. 30 Tablet 5 Ezetimibe 10 MG Oral Tablet (Zetia) Take 1 Tablet by mouth daily. 90 Tablet 3 Albuterol Sulfate HFA 108 (90 Base) MCG/ACT Inhalation Aerosol Solution Inhale 2 puffs every 6 hours 54 g 3 Umeclidinium [place] 62.5 MCG/ACT Inhalation Aerosol Powder Breath Activated (INCRUSE ellipta) Inhale 1 inhalfation daily - doses should be take at least 24 hours apart. 90 Each 3 Budesonide-Formoterol Fumarate 160-4.5 MCG/ACT Inhalation Aerosol (Symbicort) Inhale 2 puffs by mouth 2 times a day. 30.6 g 3 Warfarin Sodium 1 MG Oral Tablet (Coumadin) Take 1 tab by mouth Daily 90 Tablet 2 Albuterol Sulfate HFA 108 (90 Base) MCG/ACT Inhalation Aerosol Solution Inhale 2 puffs by mouth every 6 hours As Needed for shortness of breath or wheezing 8.5 g 3 Budesonide-Formoterol Fumarate 160-4.5 MCG/ACT Inhalation Aerosol (Symbicort) inhale 2 puffs by mouth twice a day 10.2 g 1 Incruse Ellipta 62.5 MCG/ACT Inhalation Aerosol Powder Breath Activated (umeclidinium [place]) Inhale 1 puff by mouth daily. 30 Each 1 Ipratropium-Albuterol 0.5-2.5 (3) MG/3ML Inhalation Solution (Duoneb) 3 mL inhaled via nebulizer every 6 hours As Needed for shortness of breath or wheezing 180 mL 5 Temazepam 7.5 MG Oral Capsule (Restoril) Take 1 Capsule by mouth at bedtime as needed for sleep. 30Capsule 0 Cilostazol 100 MG Oral Tablet (Pletal) TAKE ONE TABLET BY MOUTH TWICE A DAY 30 MINUTES BEFORE BREAKFAST AND SUPPER 60 Tablet 3 Esomeprazole Magnesium 40 MG Oral Capsule Delayed Release TAKE ONE CAPSULE BY MOUTH EVERY DAY 90 Capsule 3 Temazepam 7.5 MG Oral Capsule (Restoril) Take 1 capsule by mouth at bedtime as needed for sleep 30 Capsule 0 Triamcinolone Acetonide 0.5 % External Cream (Aristocort) 1 appl topical bid,x7 day,Instr:apply a thin film to scalp 15 g 2 predniSONE 10 MG Oral Tablet (Deltasone) Take 2 tablets by mouth daily with food for five days, then take 1 tablet by mouth daily for five days. 15 Tablet 0 Cilostazol 100 MG Oral Tablet (Pletal) TAKE ONE TABLET BY MOUTH TWICE A DAY 30 MINUTES BEFORE BREAKFAST AND SUPPER 60 Tablet 3 Pregabalin 75 MG Oral Capsule (Lyrica) Take 1 Capsule by mouth 2 times a day. 60 Capsule 3 Meclizine HCl 12.5 MG Oral Tablet (Antivert) TAKE 1 TABLET, ORALLY, THREE TIMES DAILY IF NEEDED FORDIZZINESS. 90 Tablet 11 Ipratropium-Albuterol 20-100 MCG/ACT Inhalation Aerosol Solution (Combivent Respimat) Inhale 1 puffby mouth four times daily - may take additional inhalations as required - not to exceed 6 inhalations in 24 hours. 4 g 2 Combivent Respimat 20-100 MCG/ACT Inhalation Aerosol Solution (Ipratropium- Albuterol) Inhale 1 puffby mouth four times daily - may take additional inhalations as required - not to exceed 6 inhalations in 24 hours. 4 g 2 Esomeprazole Magnesium 40 MG Oral Capsule Delayed Release TAKE ONE CAPSULE BY MOUTH EVERY DAY 90 Capsule 3 Clopidogrel Bisulfate 75 MG Oral Tablet (pLAVix) Take 1 Tablet by mouth daily. 90 Tablet 3 Warfarin Sodium 3 MG Oral Tablet (Coumadin) Take 1 tablet by mouth daily. 30 Tablet 5 Incruse Ellipta 62.5 MCG/ACT Inhalation Aerosol Powder Breath Activated (umeclidinium [place]) Inhale 1 puff by mouth once daily. 90 Each 1 Ezetimibe 10 MG Oral Tablet (Zetia) Take 1 tablet by mouth daily 90 Tablet 3 Azithromycin 250 MG Oral Tablet (Zithromax) Take 2 tabs by mouth on the first day, then 1 tab dailyon days two through five 6 Tablet 0 predniSONE 20 MG Oral Tablet (Deltasone) Take 2 Tablets by mouth in the morning for 5 days. 10 Tablet 0 Amitriptyline HCl 50 MG Oral Tablet (Elavil) Take 1 Tablet by mouth at bedtime. (Patient not taking: Reported on 01/18/2024) 90 Tablet 3 Amitriptyline HCl 25 MG Oral Tablet (Elavil) Take 1 Tablet by mouth every night at bedtime. (Patient not taking: Reported on 01/18/2024) 90 Tablet 0 No current facility-administered medications for this visit. Review of patient's allergies indicates: Allergen Reactions Pcn [Penicillins] Anaphylaxis Sulfa Antibiotics Anaphylaxis Benzonatate Other reaction(s): unable to swallow - throat goes numb & muscles won't work Cymbalta [Duloxetine Hydrochloride] Hives Duloxetine Hcl Other reaction(s): Hives, Pharyngeal swelling Ivp Dye Other (Please comment) vomiting Nsaids Hives Other reaction(s): Pharyngeal swelling Other - Drugs Hives most anti inflammatory drugs Tolmetin Other reaction(s): hives, itchy Family History Problem Relation Name Age of Onset No Past Hx Other denies any skin diseases, cancers, or melanoma OBJECTIVE BP 126/70 | Pulse 79 | Temp 36.5 C (97.7 F) (Tympanic) | Resp 20 | Wt 65.3 kg (144 lb) | SpO2 95% | BMI 21.27 kg/m | BSA 1.78 m Wt Readings from Last 1 Encounters: 11/07/24 65.3 kg (144 lb) General Appearance: awake, alert, no apparent distress HEENT: perrl and eomi tms - clear, normal light reflex, no erythema oral pharynx clear, mucus membranes moist No sinus tenderness or facial pain to percussion No turbinate engorgement or discharge Neck: normal, supple, no adenopathy Respiratory: clear to auscultation, no rhonchi, no wheezes, no crackles, and + harsh tight cough noted Heart: regular rate, regular rhythm, no murmurs , no rubs, and no gallops Skin: skin color, texture, turgor are normal, no rashes or significant lesions Patient Instructions Rest Increase fluids. OK to take over the counter Tylenol or ibuprofen as needed. Follow directions on package. OK to take over the counter Coricidin Cough and Cold. Follow directions on package. OK to use over the counter Nasal saline. 2 sprays each nostril 3-4 times daily as needed. OK to use over the counter Mucinex to thin mucous. Follow directions on package. Follow up with primary care provider if no improvement in 1 week. To ER if any worsening of symptoms such as chest pain, difficulty breathing or shortness of breath. ASSESSMENT AND PLAN COPD exacerbation (HCC) (Primary) - Azithromycin 250 MG Oral Tablet (Zithromax); Take 2 tabs by mouth on the first day, then 1 tab daily on days two through five - predniSONE 20 MG Oral Tablet (Deltasone); Take 2 Tablets by mouth in the morning for 5 days. LRTI (lower respiratory tract infection) - Azithromycin 250 MG Oral Tablet (Zithromax); Take 2 tabs by mouth on the first day, then 1 tab daily on days two through five - predniSONE 20 MG Oral Tablet (Deltasone); Take 2 Tablets by mouth in the morning for 5 days. Diarrhea, unspecified type Patient goals for plan of care were discussed Anya Moody PA-C [facility] [address] [facility] [address] [facility] [address] documented in this encounter Nursing Notes * Kristen Whipple LPN - 11/07/2024 3:08 PM EST Patient presents with productive cough, fatigue. Symptoms began 2 day ago. Has taken tylenol and mucinex with minimal relief. Is alone in the exam room. documented in this encounter Plan of Treatment Health Maintenance Due Date Last Done Comments DISCUSS TOBACCO CESSATION (REFER TO SMARTSET #3291) 1945 Depression Screening 1959 Alpha-1 Antitrypsin 1965 Hepatitis C Screening 1965 Lung Cancer Screening 1997 Zoster Vaccines (2 of 3) 11/18/2015 09/23/2015 Colonoscopy 07/14/2020 07/14/2018, 06/22, 10/27/2012, Additional history exists DTap/Tdap Vaccines (2 - Tdap) 10/16/2020 10/16/2010 *COPD SEVERITY VERIFIED BY PFT 09/25/2021 COVID-19 Vaccine ( season) 2024 12/09/2021, 12/09/2021, 03/25/2021, Additional history exists Influenza Vaccine (FLU shot) (#1) 2024 10/05/2021, 07/24/2020, 10/26/2019, Additional history exists O2 ASSESSMENT COMPLETED IN PAST YEAR FOR COPD 11/07/2025 11/07/2024 RETIRED - COLONOSCOPY-EVERY 2 YRS AGES 18-100 Discontinued 07/14/2018, 07/14/2018, 10/27/2012, Additional history exists Pneumococcal Vaccine: 65+ Years Completed 11/18/2022, 08/30/2014, 08/27/2008 HPV (Gardasil) Vaccine Aged Out No lo nger eligible based on patient's age to complete this topic Hepatitis B Vaccine Aged Out No longe r eligible based on patient's age to complete this topic MENINGOCOCCAL (MENACTRA/MENVEO) Aged Out No longer eligible based on patient's age to complete this topic documented as of this encounter Medical Devices Implanted Type Area Yard Manager Device Identifier Shelf Expiration Date Model / Serial / Lot Lens Intraoc 20.0 - [id number] - [id number] Implanted:Qty: 1 on 03/31/2021 by Harsh Sosa MD at OR [facility] Right: Eye [employer] 11/20/2025 [id number] / [id number] / [id number] Lens Intraoc 20.5 - [id number] - [id number] Implanted:Qty: 1 on 04/14/2021 by Harsh Sosa MD at OR [facility] Left: Eye [employer] 11/20/2025 [id number] / [id number] / [id number] documented as of this encounter Visit Diagnoses Diagnosis COPD exacerbation (HCC)- Primary Obstructive chronic bronchitis with exacerbation LRTI (lower respiratory tract infection) Other diseases of respiratory system, not elsewhere classified Diarrhea, unspecified type documented in this encounter Advance Directives * Full Code (Latest Code Status on File) Date Activated Date Inactivated Comments 03/10/2022 9:48 AM 03/10/2022 3:16 PM This order r eflects the patients wishes and were consensually agreed upon. * Full Code Date Activated Date Inactivated Comments 09/23/2021 5:34 PM 09/26/2021 9:04 PM This order r eflects the patients wishes and were consensually agreed upon. Question Answer Comments Discussion of Advance Directives occurred with: Patient * Full Code Date Activated Date Inactivated Comments 03/09/2021 9:14 PM 03/13/2021 7:20 PM This order r eflects the patients wishes and were consensually agreed upon. * Full Code Date Activated Date Inactivated Comments 03/11/2020 7:25 PM 03/14/2020 9:33 PM This order r eflects the patients wishes and were consensually agreed upon. Care Teams Systematic Theology Professor Relationship Specialty Start Date End Date Robert Dominguez MD [address] [place] [address] PCP - General Family Medicine 01/18/24 documented as of this encounter"
--- OUTSIDE RECORDS SUMMARY | 2024-12-07 17:39 | External Medical Summary ---
Author Name Unknown Address Unknown Organization K1F:[facility] [address] [facility] [place] [id number] Laboratory Report Ordering Provider Test Date Status JACKIE GALINDO 06/21/2024 15:23:00 Final Observation Date Value Abnormality Reference (Units ) Status BUN 06/21/2024 15:23:00 10 6-20 (mg/dL) Final Creatinine 06/21/2024 15:23:00 0.6 0.6-1.2 (mg/dL) Final Glomerular filtration rate/1.73 sq M.predicted [Volume Rate/Area] in Serum, Plasma or Blood by Creatinine-based formula (CKD-EPI) 06/21/2024 15:23:00 >90 >=60 (mL/min) Final eGFR is calculated based on the CKD-EPI 2020 equation. Sodium 06/21/2024 15:23:00 140 135-146 (m mol/L) Final Potassium 06/21/2024 15:23:00 3.2 Below low normal 3.5 -5.1 (mmol/L) Final Cl 06/21/2024 15:23:00 104 98-107 (mm ol/L) Final CO2 06/21/2024 15:23:00 26 22-32 (mmo l/L) Final Anion gap 06/21/2024 15:23:00 10 7-15 (mmol /L) Final Glucose 06/21/2024 15:23:00 93 70-120 (mg /dL) Final Albumin 06/21/2024 15:23:00 4.0 3.8-5.0 (g /dL) Final AST (Aspartate aminotransferase) 06/21/2024 15:23:00 24 10-50 (U/L) Fin al Alk Phos 06/21/2024 15:23:00 77 35-130 (U/ L) Final Bilirubin, Total 06/21/2024 15:23:00 0.5 <=1 .2 (mg/dL) Final Calcium 06/21/2024 15:23:00 9.2 8.4-10.2 ( mg/dL) Final Protein 06/21/2024 15:23:00 6.6 6.0-8.3 (g /dL) Final ALT (Alanine aminotransferase) 06/21/2024 15:23:00 19 10-50 (U/L) Walker caban Performing Location LABORATORY [facility] - [address] [place] [address] [address] [place] [id number]
--- OUTSIDE RECORDS SUMMARY | 2024-12-07 17:39 | External Medical Summary | Continuity of Care Document ---
Author Name Unknown Organization [facility] [address] [place] [address] [place] [id number] Care Team Providers Care Treatment Specialist Name Role Phone Eldon Toya Mo Primary Care Physician [phone] [id number]29[facility]24 - 06/29/24 [facility] [address] [address] [phone] Encounter Diagnosis Body mass index [BMI] 25.0-25.9, adult(Discharge Diagnosis) - 06/29/24 PAD (peripheral artery disease)(Discharge Diagnosis) - 06/29/24 COPD(Discharge Diagnosis) - 06/29/24 Anxiety and depression(Discharge Diagnosis) - 06/29/24 (HFpEF) heart failure with preserved ejection fraction(Discharge Diagnosis) - 06/29/24 Insomnia(Discharge Diagnosis) - 06/29/24 Discharge Disposition: Home or Self Care Attending Physician: MD Alberto, Robert Almonte Allergies, Adverse Reactions, Alerts Substance Criticality Severity Reaction Reaction Severity Status sulfa drugs Pharyngeal swel ling Hives Active NSAIDS (nonsteroidal anti-inflammatory agents) Swelling of tongue Pharyngeal swelling Hives Active Tolectin hives itchy Active Tessalon Perles unable to sw allow - throat goes numb & muscles won't work Active IVP dye Swelling of ton lorena Pharyngeal swelling Hives Active Cymbalta Pharyngeal swel ling Hives Active PCN (penicillin) Swelling of tongue Pharyngeal swelling Hives Active Immunizations Given and Recorded Vaccine Date Status Refusal Reason tetanus/diphtheria/pertuss, acel (Tdap) 03/09/24 R ecorded tetanus/diphtheria/pertuss, acel (Tdap) 10/16/10 R ecorded influenza virus vaccine, inactivated 09/01/23 Give n [...] influenza virus vaccine, inactivated 08/25/12 Give n pneumococcal 20-valent conjugate vaccine 11/18/22 Given SARS-CoV-2 mRNA (Pfizer 12+) bivalent 12/09/21 Rec orded SARS-CoV-2 mRNA ([id number]) 03/25/21 Re corded SARS-CoV-2 mRNA ([id number]-bkqw-wvw) 03/04/21 Re corded zoster vaccine live 09/23/15 Given pneumococcal 13-valent vaccine 08/30/14 Given influenza virus vaccine, H1N1 1 10/07/09 Recorded pneumococcal 23-valent vaccine 08/27/08 Recorded 1Result Comment: 2021-05-12: Historical information-source unspecified Medications Albuterol (Eqv-Proventil HFA) 90 mcg/inh inhalation aerosol Start: 02/17/23 1:18:00 PM EDT, 2 puff, inhaled, q6h, Disp# 3 each, Refills: 3, Pharmacy: [facility] Start Date: 02/17/23 Status: Ordered albuterol-ipratropium 2.5 mg-0.5 mg/3 mL inhalation solution Start: 05/04/24 9:34:00 AM EDT, 3 mL, inhaled, tid, Disp# 180 mL, Refills: 6, PRN: as needed for shortness of breath or wheezing, Pharmacy: [facility]/pharmacy #[id number] Start Date: 05/04/24 Status: Ordered aspirin 81 mg oral tablet Start: 04/30/20 1:32:00 PM EDT, 1 tab, PO, Daily Start Date: 04/30/20 Status: Ordered Caltrate 600 with D Start: 12/10/08 6:43:30 AM EST, 1 tab, PO, Daily, Refills: 0, current medication from another provider Start Date: 12/10/08 Status: Ordered Chantix Starter Pack 0.5 mg-1 mg oral tablet Start: 06/29/24 3:36:00 PM EDT, 1 tab, PO, bid, Disp# 60 tab, Refills: 0, [id number] Start Date: 06/29/24 Stop Date: 07/29/24 Status: Ordered cilostazol 100 mg oral tablet Start: 05/17/24 10:00:00 AM EDT, See Instructions, Disp# 180 tab, Refills: 3, TAKE ONE TABLET BY MOUTH TWICE A DAY 30 MINUTES BEFORE BREAKFAST AND SUPPER, Pharmacy: [facility]/pharmacy #[id number] Start Date: 05/17/24 Status: Ordered clopidogrel 75 mg oral tablet Start: 04/30/24 5:11:00 PM EDT, 1 tab, PO, Daily, Disp# 90 tab, Refills: 3, Pharmacy: [facility] Start Date: 04/30/24 Status: Ordered Colace [...] exceed 6 inhalations in 24 hours., Pharmacy: [facility]/pharmacy #[id number] Start Date: 03/10/24 Status: Ordered CoQ10 100 mg oral capsule Start: 12/16/23 3:44:00 PM EST, 1 cap, PO, bid Start Date: 12/16/23 Status: Ordered esomeprazole 40 mg oral delayed release capsule Start: 03/06/24 1:28:00 PM EDT, See Instructions, Disp# 90 cap, Refills: 3, TAKE ONE CAPSULE BY MOUTH EVERY DAY, Pharmacy: [facility] Start Date: 03/06/24 Status: Ordered fexofenadine 180 mg oral tablet [...] taken at least 24 hours apart, Pharmacy: [facility]/pharmacy #[id number] Start Date: 06/08/24 Status: Ordered ketoconazole 2% topical cream Start: 01/19/23 1:37:00 PM EST, See Instructions, Disp# 30 g, Refills: 1, APPLY A THIN FILM TO BOTH PALMS TWICE DAILY, Pharmacy: [facility] Start Date: 01/19/23 Status: Ordered Lyrica 75 mg oral capsule Start: 05/04/24 9:34:00 AM EDT, 1 cap, PO, bid, Disp# 180 cap, Refills: 3, Pharmacy: [facility]/pharmacy #[id number] Start Date: 05/04/24 Status: Ordered magnesium oxide 500 mg oral tablet Start: 11/01/13 10:42:00 AM EST, 1 tab, PO, Daily Start Date: 11/01/13 Status: Ordered meclizine 12.5 mg oral tablet Start: 12/07/23 8:07:00 AM EST, See Instructions, Disp# 90 tab, Refills: 11, TAKE 1 TABLET, ORALLY, THREE TIMES DAILY IF NEEDED FOR DIZZINESS., Pharmacy: [facility] Start Date: 12/07/23 Status: Ordered Mucinex DM Start: 06/10/10 1:38:47 PM EDT, 1 tab, PO, qhs, Refills: 0, current medication from another provider Start Date: 06/10/10 Status: Ordered Narcan 0.4 mg/ml injectable solution Start: 01/28/20 3:22:00 PM EDT, 0.4 mg =, subQ, ONCE, Disp# 1 each, Refills: 1, Pharmacy: [facility] Start Date: 01/28/20 Status: Ordered Pulmicort Respules 1 mg/2 mL inhalation suspension Start: 03/16/24 3:03:00 PM EDT, 2 mL, NEB, Daily, Disp# 120 mL, Refills: 6, Pharmacy: [facility]/pharmacy #[id number] Start Date: 03/16/24 Status: Ordered rosuvastatin 10 mg oral tablet Start: 12/16/23 4:09:00 PM EST, 1 tab, PO, qhs, Disp# 90 tab, Refills: 3, Pharmacy: [facility]/pharmacy #[id number] Start Date: 12/16/23 Status: Ordered rosuvastatin 5 mg oral capsule Start: 06/29/24 2:38:00 PM EDT Start Date: 06/29/24 Status: Ordered Slow Fe (as elemental iron) 45 mg oral tablet, extended release Start: 09/29/21 2:43:00 PM EST, 1 tab, PO, Daily, Disp# 90 tab, Refills: 3, take with 500mg vit c daily., Pharmacy: [facility] Start Date: 09/29/21 Status: Ordered Tandem Plus oral capsule Start: 11/18/20 2:07:00 PM EST, 1 cap, PO, Daily, Disp# 90 cap, Refills: 3, Pharmacy: [facility] Start Date: 11/18/20 Status: Ordered triamcinolone 0.5% topical cream Start: 09/01/23 1:51:00 PM EDT, 1 appl, topical, bid, Disp# 15 g, Refills: 2, apply a thin film to scalp, Pharmacy: [facility] Start Date: 09/01/23 Stop Date: 09/22/23 Status: Ordered Vitamin B-12 1000 mcg oral tablet Start: 07/10/12 12:02:00 PM EDT, 1 tab, PO, Daily Start Date: 07/10/12 Status: Ordered Vitamin C 25 mg oral tablet, chewable Start: 11/30/19 1:53:00 PM EST, 1 tab, PO, Daily Start Date: 11/30/19 Status: Ordered warfarin 3 mg oral tablet Start: 06/21/24 10:40:00 AM EDT, 1 tab, PO, Daily, Disp# 90 tab, Refills: 5, Pharmacy: [facility]/pharmacy #[id number] Start Date: 06/21/24 Status: Ordered Zetia 10 mg oral tablet Start: 06/29/24 3:35:00 PM EDT, 1 tab, PO, Daily, Disp# 90 tab, Refills: 3, Pharmacy: [facility]/pharmacy #[id number] Start Date: 06/29/24 Status: Ordered Mental Status 06/29/24 Barriers to Learning one year Vision imp airment, Other: glasses Mandatory Health Literacy Documentation Yes Health Literacy Communication Barriers N ever Primary Language Mongolian Problem List Condition Confirmation Course Effective Dates Status Health Status Informant Coagulation deficiency Confirmed Active Warfarin anticoagulation Confirmed Active 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 Active CEA - Carotid endarterectomy 1 Confirmed Active Chronic generalized pain Confirmed Active COPD Confirmed Active RSD (reflex sympathetic dystrophy) Confirmed Active Limb pain Confirmed Active H/O agent [place] exposure Confirmed Active (HFpEF) heart failure with [...] Effective Dates Health Status Clinical Service Informant Body mass index [BMI] 25.0-25.9, adult Discharge Diagnosis 06/29/24 Non-Specified PAD (peripheral artery disease) Discharge Diagnosis 06/29/24 Non-Specified COPD Discharge Diagnosis 06/29/24 Non-Specified (HFpEF) heart failure with preserved ejection fraction Discharge Diagnosis 06/29/24 Non-Specified Anxiety and depression Discharge Diagnosis 06/29/24 Non-Specified Insomnia Discharge Diagnosis 06/29/24 Non-Specified Procedures Procedure Date Related Diagnosis Body Site Status RUE Angiogram w/ SOLE FILLER subclavian 01/27/24 Completed X-ray of cervical spine [...] 06/02/98 Comp leted Back Surgery 1990 Completed [place] Filter 1990 Complet ed Lumbar sympathectomy 1990 [...] otherwise normal. Repeat exam in two years. 7[facility] [address] [address] 9[facility] 10[facility] 11[facility] 12[facility] 13[facility] 14[facility] 15[facility] 16[facility] 17[facility] 18[facility] 19[facility] 20[facility] 21[facility] Vital Signs Most recent to oldest [Reference Range]: 1 Height 165.5 cm (06/29/24 2:39 PM) Patient Weight 69.6 kg (06/29/24 2:39 PM) Body Mass Index 25.41 kg/m2 (06/29/24 2:39 PM) Heart Rate 77 bpm (06/29/24 2:39 PM) Respiratory Rate 18 br/min (06/29/24 2:39 PM) Blood Pressure 136/58mmHg (06/29/24 2:39 PM) Cuff Pulse Pressure 78 mmHg (06/29/24 2:39 PM) Social History Social History Type Response Tobacco Current every day sm oker, Cigarettes, 1 per day. 49 year(s). 1 Smoking Status Current every day he marek smoker Sex Male Sex Representation Male (finding) 1Also uses an electric cigarette Patient Care team information Care Team Personnel Name: MD Shadi, Arslan Raza Position: Physician - Family Med Member Role: Lifetime Relationship Address: [address] [place] [address] Name: SRINATH Seo Kimberly A Position: Physician Asst Exmpt - Family Med Member Role: Lifetime Relationship Address: [address] [place] [address] Name: SILVESTRE Colón Bridgette S Position: Referring Member Role: Primary Care Provider Address: [address] Care Team Related Persons Name: CAROLYN VIDAL Name: CAROLYN VIDAL Name: SHEKHAR VIDAL
--- OUTSIDE RECORDS SUMMARY | 2024-12-07 17:39 | External Medical Summary ---
Author Name Unknown Address Unknown Organization K1F:LABORATORY [facility] - [address] [place] [id number] Laboratory Report Ordering Provider Test Date Status JACKIE GALINDO 06/21/2024 17:08:36 Final Observation Date Value Abnormality Reference (Units) Status Source 06/21/2024 17:08:36 Liquid Final Clostridioides difficile toxin and [id number] strain DNA panel - Stool by REBECCA with probe detection 06/21/2024 17:08:36 Negative. No C. difficile toxin B gene DNA detected by PCR (Amplified Probe). Negative Final Performing Location LAB[facility]ATORY [facility] - [address] [place] [id number]
--- OUTSIDE RECORDS SUMMARY | 2024-12-07 17:39 | External Medical Summary ---
Author Name Unknown Address Unknown Organization K1F:LABORATORY [facility] - [address] [facility]. [place] [id number] Laboratory Report Ordering Provider Test Date Status JACKIE GALINDO 06/21/2024 15:23:00 Final Observation Date Value Abnormality Reference (Units ) Status SYNC LEUKOCYTES IN BLOOD BY AUTOMATED COUNT 06/21/2024 15:23:00 8.87 4.00-10.80 (K/uL) Final Segs 06/21/2024 15:23:00 57.0 40.0-75.0 (%) Final Lymphs % 06/21/2024 15:23:00 31.6 18.0-42.0 (%) Final Monos 06/21/2024 15:23:00 8.7 1.0-11.0 (%) Final Eosinophils 06/21/2024 15:23:00 1.9 0.0-6.0 (%) Final Basos 06/21/2024 15:23:00 0.6 0.0-2.0 (%) Final Immature Granulocyte, Percent 06/21/2024 15:23:00 0.2 0.0-2.0 (%) Final Absolute Segs 06/21/2024 15:23:00 5.06 1.80-7.70 (K/uL) Final Lymphs, absolute 06/21/2024 15:23:00 2.80 1.00-4.80 (K/ul) Final Monos, Abs 06/21/2024 15:23:00 0.77 0.00-1.10 (K/uL) Final Eos, Abs 06/21/2024 15:23:00 0.17 0.00-0.70 (K/uL) Final Basos, Abs 06/21/2024 15:23:00 0.05 0.00-0.20 (K/uL) Final Immature Granulocytes, Number 06/21/2024 15:23:00 0.02 0.00-0.20 (K/uL) Final Performing Location [facility] [address] [facility] [address] [place] [id number]
--- OUTSIDE RECORDS SUMMARY | 2024-12-07 17:39 | External Medical Summary ---
Author Name Unknown Address Unknown Organization K01:LABORATORY [facility] - [address] [place] [id number] Laboratory Report Ordering Provider Test Date Status JACKIE GALINDO 06/21/2024 17:08:36 Final Observation Date Value Abnormality Reference (Units) Status Bacteria identified in Specimen by Culture 06/21/2024 17:08:36 No Aeromonas species or Plesiomonas species isolated. Final Test: Gastrointestinal Patho gen Panel Culture
Specimen Source: Stool
Specimen Type: Stool
Specimen Date: 06/21/2024 1708
Result Date: 06/24/2024 1354
Result Status: Final result
Resulting Lab: LABORATORY [facility]
[address]
[place] [id number]

CULTURE

No Aeromonas species or Plesiomonas species isolated.

null Performing Location LABORATORY [facility] - [address] [place] [id number]
--- OUTSIDE RECORDS SUMMARY | 2024-12-07 17:39 | External Medical Summary ---
Author Name Unknown Address Unknown Organization K1F:LABORATORY [facility] - [address] [place] [address] Laboratory Report Ordering Provider Test Date Status JOSIEJACKIE 06/21/2024 15:23:00 Final Observation Date Value Abnormality Reference (Units ) Status Lipase 06/21/2024 15:23:00 14 13-60 (U/L ) Final Performing Location LABORATORY [facility] - [address] [address]
--- OUTSIDE RECORDS SUMMARY | 2024-12-07 17:39 | External Medical Summary ---
Author Name Unknown Address Unknown Organization K01:LABORATORY [facility] - [address] [facility] [address] Laboratory Report Ordering Provider Test Date Status JACKIE GALINDO 06/21/2024 17:08:36 Final Observation Date Value Abnormality Reference (Units ) Status Campylobacter sp DNA.diarrheagenic [Presence] in Stool by REBECCA with probe detection 06/21/2024 17:08:36 Negative Negative Final Salmonella sp rpoD gene [Presence] in Stool by REBECCA with probe detection 06/21/2024 17:08:36 Negative Negative Final Shigella species+EIEC invasion plasmid antigen H ipaH gene [Presence] in Stool by REBECCA with probe detection 06/21/2024 17:08:36 Negative Negative Final Vibrio sp DNA [Identifier] in Specimen by REBECCA with probe detection 06/21/2024 17:08:36 Negative Negative Final Yersinia enterocolitica recN gene [Presence] in Stool by REBECCA with probe detection 06/21/2024 17:08:36 Negative Negative Final Escherichia coli Stx1 toxin stx1 gene [Presence] in Stool by REBECCA with probe detection 06/21/2024 17:08:36 Negative Negative Final Escherichia coli Stx2 toxin stx2 gene [Presence] in Stool by REBECCA with probe detection 06/21/2024 17:08:36 Negative Negative Final Norovirus genogroups I and II RNA panel - Stool by REBECCA with probe detection 06/21/2024 17:08:36 Negative Negative Final Rotavirus A RNA [Presence] in Stool by REBECCA with probe detection 06/21/2024 17:08:36 Negative Negative Final Performing Location LABORATORY [facility] - [address] [facility] [address]
--- OUTSIDE RECORDS SUMMARY | 2024-12-07 17:39 | External Medical Summary ---
Author Name Unknown Address Unknown Organization K1F:LABORATORY [facility] - [address] [place] [address] Laboratory Report Ordering Provider Test Date Status JACKIE GALINDO 06/21/2024 15:23:00 Final Observation Date Value Abnormality Reference (Units ) Status WBC, Total 06/21/2024 15:23:00 8.87 4.00-10.80 (K/uL) Final RBC 06/21/2024 15:23:00 4.48 4.50-5.25 (M/uL) Final Hemoglobin 06/21/2024 15:23:00 13.8 Below low normal 14.0-16.8 (g/dL) Final HCT 06/21/2024 15:23:00 39.9 Below low normal 40.0-48.4 (%) Final MCV 06/21/2024 15:23:00 89.1 82.0-99.5 (fL) Final MCH 06/21/2024 15:23:00 30.8 27.0-34.0 (pg) Final MCHC 06/21/2024 15:23:00 34.6 32.0-36.0 (g/dL) Final RDW 06/21/2024 15:23:00 14.6 11.5-15.5 (%) Final Platelets 06/21/2024 15:23:00 208 140-400 (K/uL) Final MPV 06/21/2024 15:23:00 9.5 6.6-11.1 (fL) Final Nucleated erythrocytes/100 leukocytes [Ratio] in Blood by Automated count 06/21/2024 15:23:00 0 <=0 (/100 WBCs) Final Performing Location LABORATORY [facility] - [address] [place] [address]
--- OUTSIDE RECORDS SUMMARY | 2024-12-07 17:39 | External Medical Summary | Continuity of Care Document ---
Author Name Unknown Organization [facility] [address] [place] [address] [place] [id number] Care Team Providers Care Dairy Equipment Specialist Name Role Phone Eldon Toya S Primary Care Physician [phone] Encounter [facility] FINNBR [id number] Date(s): 06/21/24 - 06/21/24 [facility] [address] [facility] 207 [facility] [address] [address] [phone] Encounter Diagnosis Diarrhea(Discharge Diagnosis) - 06/21/24 Discharge Disposition: Home or Self Care [facility]ending Phys[facility] Allergies, Adverse Reactions, Alerts Substance Criticality Severity Reaction Reaction Severity Status sulfa drugs Pharyngeal swel ling Hives Active Tolectin hives itchy Active Tessalon Perles unable to sw allow - throat goes numb & muscles won't work Active IVP dye Swelling of ton lorena Pharyngeal swelling Hives Active Cymbalta Pharyngeal swel ling Hives Active PCN (penicillin) Swelling of tongue Pharyngeal swelling Hives Active NSAIDS (nonsteroidal anti-inflammatory agents) Swelling of tongue Pharyngeal swelling Hives Active Assessment and Plan Extracted from: Title:FCM: [facility]; diarrhea Author:DO Amezquita Amanda Date:06/21/24 1.Diarrhea Undifferentiated new problem with uncertain prognosis Goal: _ Data:_ Plan: Discussed with pt concern for dehydration andelectrolyteabnormalitiesgiven large volume frequent stools and advised pt should go to his nearest ER (for him [facility]) for vitals, labs, possible CT abd/stoolstudies for further evaluation of copious diarrhea. Pt agreeable to this plan. Immunizations Given and Recorded Vaccine Date Status [...] 12+) bivalent 12/09/21 Rec orded SARS-CoV-2 mRNA ([id number]) 03/25/21 Re corded SARS-CoV-2 mRNA (cptfmvafcqn-balw-lsq) 03/04/21 Re corded zoster vaccine live 09/23/15 Given pneumococcal 13-valent vaccine 08/30/14 Given influenza virus vaccine, H1N1 1 10/07/09 Recorded pneumococcal 23-valent vaccine 08/27/08 Recorded 1Result Comment: 2021-05-12: Historical information-source unspecified Medications Albuterol (Eqv-Proventil HFA) 90 mcg/inh inhalation aerosol Start: 02/17/23 1:18:00 PM EDT, 2 puff, inhaled, q6h, Disp# 3 each, Refills: 3, Pharmacy: [facility] Start Date: 02/17/23 Status: Ordered albuterol-ipratropium 2.5 mg-0.5 mg/3 mL inhalation solution Start: 05/04/24 9:34:00 AM EDT, 3 mL, inhaled, tid, Disp# 180 mL, Refills: 6, PRN: as needed for shortness of breath or wheezing, Pharmacy: [facility]/pharmacy #[id number] Start Date: 05/04/24 Status: Ordered aspirin 81 mg oral tablet Start: 04/30/20 1:32:00 PM EDT, 1 tab, PO, Daily Start Date: 04/30/20 Status: Ordered Caltrate 600 with D Start: 12/10/08 6:43:30 AM EST, 1 tab, PO, Daily, Refills: 0, current medication from another provider Start Date: 12/10/08 Status: Ordered Chantix Starter Pack 0.5 mg-1 mg oral tablet Start: 09/05/23 3:50:00 PM EDT, 1 tab, PO, bid, Disp# 60 tab, Refills: 0, Pharmacy: [facility]/pharmacy #[id number] Start Date: 09/05/23 Stop Date: 10/05/23 Status: Ordered cilostazol 100 mg oral tablet Start: 05/17/24 10:00:00 AM EDT, See Instructions, Disp# 180 tab, Refills: 3, TAKE ONE TABLET BY MOUTH TWICE A DAY 30 MINUTES BEFORE BREAKFAST AND SUPPER, Pharmacy: [facility]/pharmacy #[id number] Start Date: 05/17/24 Status: Ordered clopidogrel 75 mg oral tablet Start: 04/30/24 5:11:00 PM EDT, 1 tab, PO, Daily, Disp# 90 tab, Refills: 3, Pharmacy: [facility] Start Date: 04/30/24 Status: Ordered Colace [...] exceed 6 inhalations in 24 hours., Pharmacy: [facility]/pharmacy #[id number] Start Date: 03/10/24 Status: Ordered CoQ10 100 mg oral capsule Start: 12/16/23 3:44:00 PM EST, 1 cap, PO, bid Start Date: 12/16/23 Status: Ordered Dayvigo 5 mg oral tablet Start: 03/06/24 1:38:00 PM EDT, 1 tab, PO, qhs, Disp# 30 tab, Pharmacy: [facility]/pharmacy #[id number] Start Date: 03/06/24 Status: Ordered esomeprazole 40 mg oral delayed release capsule Start: 03/06/24 1:28:00 PM EDT, See Instructions, Disp# 90 cap, Refills: 3, TAKE ONE CAPSULE BY MOUTH EVERY DAY, Pharmacy: [facility] Start Date: 03/06/24 Status: Ordered fexofenadine [...] taken at least 24 hours apart, Pharmacy: [facility]/pharmacy #[id number] Start Date: 06/08/24 Status: Ordered ketoconazole 2% topical cream Start: 01/19/23 1:37:00 PM EST, See Instructions, Disp# 30 g, Refills: 1, APPLY A THIN FILM TO BOTH PALMS TWICE DAILY, Pharmacy: [facility] Start Date: 01/19/23 Status: Ordered Lyrica 75 mg oral capsule Start: 05/04/24 9:34:00 AM EDT, 1 cap, PO, bid, Disp# 180 cap, Refills: 3, Pharmacy: [facility]/pharmacy #[id number] Start Date: 05/04/24 Status: Ordered magnesium oxide 500 mg oral tablet Start: 11/01/13 10:42:00 AM EST, 1 tab, PO, Daily Start Date: 11/01/13 Status: Ordered meclizine 12.5 mg oral tablet Start: 12/07/23 8:07:00 AM EST, See Instructions, Disp# 90 tab, Refills: 11, TAKE 1 TABLET, ORALLY, THREE TIMES DAILY IF NEEDED FOR DIZZINESS., Pharmacy: [facility] Start Date: 12/07/23 Status: Ordered Mucinex DM Start: 06/10/10 1:38:47 PM EDT, 1 tab, PO, qhs, Refills: 0, current medication from another provider Start Date: 06/10/10 Status: Ordered Narcan 0.4 mg/ml injectable solution Start: 01/28/20 3:22:00 PM EDT, 0.4 mg =, subQ, ONCE, Disp# 1 each, Refills: 1, Pharmacy: [facility] Start Date: 01/28/20 Status: Ordered Pulmicort Respules 1 mg/2 mL inhalation suspension Start: 03/16/24 3:03:00 PM EDT, 2 mL, NEB, Daily, Disp# 120 mL, Refills: 6, Pharmacy: [facility]/pharmacy #[id number] Start Date: 03/16/24 Status: Ordered rosuvastatin 10 mg oral tablet Start: 12/16/23 4:09:00 PM EST, 1 tab, PO, qhs, Disp# 90 tab, Refills: 3, Pharmacy: [facility]/pharmacy #[id number] Start Date: 12/16/23 Status: Ordered Slow Fe (as elemental iron) 45 mg oral tablet, extended release Start: 09/29/21 2:43:00 PM EST, 1 tab, PO, Daily, Disp# 90 tab, Refills: 3, take with 500mg vit c daily., Pharmacy: [facility] Start Date: 09/29/21 Status: Ordered Tandem Plus oral capsule Start: 11/18/20 2:07:00 PM EST, 1 cap, PO, Daily, Disp# 90 cap, Refills: 3, Pharmacy: [facility] Start Date: 11/18/20 Status: Ordered tetanus/diphth/pertuss (Tdap) adult/adol 5 units-2.5 units-18.5 mcg/0.5 mL intramuscular suspension Start: 03/06/24 1:41:00 PM EDT, 0.5 mL, IM, ONCE, Disp# 0.5 mL, Pharmacy: [facility]/pharmacy #[id number] Start Date: 03/06/24 Status: Ordered triamcinolone 0.5% topical cream Start: 09/01/23 1:51:00 PM EDT, 1 appl, topical, bid, Disp# 15 g, Refills: 2, apply a thin film to scalp, Pharmacy: [facility] Start Date: 09/01/23 Stop Date: 09/22/23 [...] Daily, Disp# 90 tab, Refills: 5, Pharmacy: [facility]/pharmacy #[id number] Start Date: 06/21/24 Status: Ordered Zetia 10 mg oral tablet Start: 09/01/23 1:51:00 PM EDT, 1 tab, PO, Daily, Disp# 90 tab, Refills: 3, Pharmacy: [facility] Start Date: 09/01/23 Status: Ordered Mental Status 06/21/24 Barriers to Learning one year Vision imp airment, Other: glasses Mandatory Health Literacy Documentation Yes Health Literacy Communication Barriers N ever Primary Language Khmer Problem List Condition Confirmation Course Effective Dates Status Health Status Informant Coagulation deficiency Confirmed Active Warfarin anticoagulation Confirmed Active 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 Active CEA - Carotid endarterectomy 1 Confirmed Active Chronic generalized pain Confirmed Active COPD Confirmed Active RSD (reflex sympathetic dystrophy) Confirmed Active Limb pain Confirmed Active H/O agent Meeker exposure Confirmed Active (HFpEF) heart failure with [...] Diagnosis Diagnosis Type Effective Dates Health Status Clini sajan Service Informant Diarrhea Discharge Diagnosis 06/21/24 Non-Specified Procedures Procedure Date Related Diagnosis Body Site Status RUE Angiogram w/ EMPLOYEE WELLNESS/FITNESS COORDINATOR subclavian 01/27/24 Completed X-ray of cervical spine [...] 06/02/98 Comp leted Back Surgery 1990 Completed Gladys Filter 1990 Complet ed Lumbar sympathectomy 1990 [...] otherwise normal. Repeat exam in two years. 7[facility] [address] [address] Paz 9[facility] 10[facility] 11[facility] 12[facility] 13[facility] 14[facility] 15[facility] 16[facility] 17[facility] 18[facility] 19[facility] 20[facility] 21[facility] Social History Social History Type Response Tobacco Current every day sm oker, Cigarettes, 1 per day. 47 year(s). 1 Smoking Status Current every day he marek smoker Sex Male Sex Representation Male (finding) 1Also uses an electric cigarette FCM Outpt Note * MD Antoinette, Natalie Gregory: MODIFY MD Antoinette, Natalie Gregory: MODIFY Event Display: FCM Outpt Note Authored Date: TeleHealth Visit Note I have confirmed the patients name and date of . The patient has consented to this service,and I have advised the patient that this is a billable visit for which they may be subject to a copay. The patient initiated this visit after they were informed of the availability of TeleHealth for this medically necessary visit. I am located at my office. The patient is located at home. This visit was conducted via live audio/video technology via [employer]. Chief Complaint Watery diarrhea since Tuesday- Immodium helped at first, today getting worse again. History of Present Illness Pt is a 79 yo male who presents for #Diarrhea - started on Tuesday, has had very watery bowel movements, 4-5 times a day - no blood, no fevers, some stomach cramps - no recent travel or camping trips, has not had well water recently - was taking Imodium thatwas helping at first but no longer helping - the last 2-3 days has been >10 bowel movements a day very watery and high volume, at least hourly - tolerating oral intake but worried about being able to keep up with hydration Review of Systems Per HPI. Physical Exam General: Verballyalert and oriented, Respiratory: No conversational dyspnea noted Assessment/Plan 1.Diarrhea Undifferentiated new problem with uncertain prognosis Goal: _ Data:_ Plan: Discussed with pt concern for dehydration andelectrolyteabnormalitiesgiven large volumefrequent stools and advised pt should go to his nearest ER (for him [facility]) for vitals, labs, possible CT abd/stoolstudies for further evaluation of copious diarrhea. Pt agreeable to this plan. Attestation Attestation -I discussed and evaluated this patient with Dr. Amezquita. I spoke to pt via telephone. Agree that with the duration of his sx, as well as the severity of his diarrhea, he should goto ER. He was in agreement. The assessment and plan was developed with her and carried out at my direction. I have read and agree with her note. Problem List/Past Medical History Ongoing (HFpEF) heart failure with preserved ejection fraction Anxiety and depression Atherosclerosis of leg with intermittent claudication CEA - Carotid endarterectomy Chronic generalized pain Coagulation deficiency COPD H/O agent Meeker exposure Hyperlipidemia Inguinal hernia Innominate artery stenosis [...] - Deep vein thrombosis Hernia HTN (hypertension) MCC current use of antithrombotics/antiplatelets Lump on finger Peripheral arterial disease PVD (peripheral vascular disease) RSD (reflex sympathetic dystrophy) Procedure/Surgical History RUE Angiogram w/ EMPLOYEE WELLNESS/FITNESS COORDINATOR subclavian| Service Date: 01/27/2024X-ray of cervical spine| [...] 1990Tonsillectomy and adenoidectomy| Service Date: arotid artery dissectionjack stone removed Medications albuterol(Albuterol (Eqv-Proventil HFA) 90 [...] PO, qhs docusate(Colace), 100 mg, PO, bid esomeprazole(esomeprazole 40 mg oral delayed release capsule), See Instructions, 3 refills ezetimibe(Zetia 10 mg oral tablet), 10 mg= 1 tab, PO, Daily, 3 refills ferrous sulfate(Slow Fe (as elemental iron) 45 mg oral tablet, extended release), 45 mg= 1 tab, PO,Daily, 3 refills fexofenadine(fexofenadine 180 mg oral tablet), 180 mg= 1 tab, PO, Daily fluticasone nasal(Flonase 0.05 mg/inh nasal spray), 2 spray, intranasal, Daily, PRN ketoconazole topical(ketoconazole 2% topical cream), See Instructions, 1 refills lemborexant(Dayvigo 5 mg oral tablet), 5 mg= 1 tab, PO, qhs magnesium oxide(magnesium oxide 500 mg oral tablet), 500 mg= 1 tab, PO, Daily meclizine(meclizine 12.5 mg oral tablet), See Instructions, 11 refills multivitamin with minerals(Tandem Plus oral capsule), 1 cap, PO, Daily, 3 refills naloxone(Narcan 0.4 mg/ml injectable solution), 0.4 mg, subQ, ONCE, 1 refills pregabalin(Lyrica 75 mg oral capsule), 75 mg= 1 cap, PO, bid, 3 refills rosuvastatin(rosuvastatin 10 mg oral tablet), 10 mg= 1 tab, PO, qhs, 3 refills tetanus/diphth/pertuss (Tdap) adult/adol(tetanus/diphth/pertuss (Tdap) adult/adol 5 units-2.5 units-18.5 mcg/0.5 mL intramuscular suspension), 0.5 mL, IM, ONCE triamcinolone topical(triamcinolone 0.5% topical cream), 1 appl, topical, bid, 2 refills ubiquinone(CoQ10 100 mg oral capsule), 100 mg= 1 cap, PO, bid umeclidinium(Incruse Ellipta 62.5 mcg/inh inhalation powder), See Instructions, 3 refills varenicline(Chantix Starter Pack 0.5 mg-1 mg oral tablet), 1 tab, PO, bid warfarin(warfarin 3 mg oral tablet), 1 tab, PO, Daily, 5 refills Allergies CymbaltaPharyngeal swelling, Hives IVP dyeSwelling of tongue, Pharyngeal swelling, Hives NSAIDS (nonsteroidal anti-inflammatory agents)Swelling of tongue, Pharyngeal swelling, Hives PCN (penicillin)Swelling of tongue, Pharyngeal swelling, Hives Tessalon Perlesunable to swallow - throat goes numb & muscles won't work Tolectinhives, itchy sulfa drugsPharyngeal swelling, Hives Social History Smoking Status Current every day heavy smoker Alcohol - Denies Alcohol Use Employment/School [...] Status Family Member(s) Immunizations Vaccine Date Status tetanus/diphtheria/pertuss, acel (Tdap) 03/09/2024 Recorded influenza virus vaccine, inactivated 09/01/2023 Given pneumococcal 20-valent conjugate vaccine 11/18/2022 Given influenza virus vaccine, inactivated 11/18/2022 Given SARS-CoV-2 mRNA (Pfizer 12+) bivalent 12/09/2021 Recorded influenza virus vaccine, inactivated 10/05/2021 Given SARS-CoV-2 mRNA (hisznmuzyra-jbgj-vpi) 03/25/2021 Recorded SARS-CoV-2 mRNA (kjkegxgpyep-fqmh-ojv) 03/04/2021 Recorded influenza virus vaccine, inactivated 07/24/2020 [...] Medicare Annual Wellness Visit due05/12/22and every 1year Adult Influenza Vaccine due05/20/24and every 1year Due Adult COVID-19 Vaccination due06/21/24Unknown Frequency Adult Social Determinants of Health Screening due06/21/24Unknown Frequency Shingles Vaccine due06/21/24One-time only Due In Future Body Mass Index not due until03/07/25and every 366day Satisfied(in the past 1 year) Satisfied Adult Influenza Vaccine on09/01/23.Satisfied by SARAH Burnett Sharon Adult Tdap/Td Vaccine on03/09/24.Satisfied by SARAH Pete Paul Body Mass Index on11/22/23.Satisfied by SARAH Barillas Emma Lipid Screening on12/15/23.Satisfied by Contributor[employer]system[employer] Fourth Act Electronic Signature on File Electronically Reviewed/Signed by: Yanelis Amezquita DO Author Signature Dt/Tm:06/21/2024 11:33 AM Resident Department of Family Medicine Electronically Reviewed/Signed by: Natalie Curry MD Cosigner Signature Dt/Tm: 06/21/2024 01:02 PM [facility] [address] [place] [address] AB Patient Care team information Care Team Personnel Name: MD Hsu Jonathan D Position: Physician - Family Med Member Role: Lifetime Relationship Address: [facility] [address] [address] [place] Name: SRINATH Seo Kimberly A Position: Physician Asst Exmpt - Family Med Member Role: Lifetime Relationship Address: [address] [place] [address] [address] [place] [address] [place] Name: SILVESTRE Colón Bridgette S Position: Referring Member Role: Primary Care Provider Address: [address] [address] [place] Care Team Related Persons Name: CAROLYN VIDAL Name: CAROLYN VIDAL Name: SHEKHAR VIDAL"
--- OUTSIDE RECORDS SUMMARY | 2024-12-07 17:39 | External Medical Summary ---
Author Name Unknown Address Unknown Organization K1F:LABORATORY [facility] - [address] [place] [address] Laboratory Report Ordering Provider Test Date Status JACKIE GALINDO 06/21/2024 15:17:00 Final Warfarin Therapy
INR: 2 .0-3.0 conventional anticoagulation
INR: 2.5- 3.5 high intensity anticoagulation Observation Date Value Abnormality Reference (Units ) Status PT 06/21/2024 15:17:00 33.9 Above high normal 11 .6-15.2 (seconds) Final INR 06/21/2024 15:17:00 3.3 Above high normal 0. 8-1.2 Final Performing Location LABORATORY [facility] - [address] [place] [address]
--- OUTSIDE RECORDS SUMMARY | 2024-12-07 17:39 | External Medical Summary | Summary of Care ---
Author Name Unknown Organization [facility] Address [address] [place] [address] Phone [phone] Care Team Providers Care Custom Stock Maker Name Role Phone Robert Dominguez MD Primary Care Provide r Reason for Visit * Reason Comments Diarrhea * Auth/Cert Specialty Diagnoses / Procedures Referred By Contac t Referred To Contact [facility] [address] [place] [address] Phone: [phone] [facility] [address] [place] [address] Referral ID Status Reason Start Date Expiration Date Visits Re quested Visits Authorized [id number] Encounter Details Date Type Department Care Team (Late st Contact Info) Description 06/21/2024 2:42 PM EDT - 06/21/2024 6:28 PM EDT Emergency [facility] Emergency [facility] ([facility]) [address] [place] [address] Toby Kelsey, [address] [place] [address] Diarrhea, unspecified type (Primary Dx); Hypokalemia Discharge Disposition: Home - Self Care Allergies Active Allergy Reactions Criticality Noted Date [...] as of this encounter (statuses as of 06/22/2024) Medications Medication Sig Dispensed Refills Start Date End Date Status CALCIUM + D 600-200 MG-UNIT PO TABS daily 0 11/01/2005 Active MULTIVITAMIN PO TABS daily 0 11/01/2005 Active COUMADIN 3 MG PO TABS 1 TABLET DAILY 0 11/23/2005 Active FEXOFENADINE HCL 180 MG PO TABS Take 180 mg by mouth daily. Active PLETAL 100 MG PO TABS Take 100 mg by mouth 2 times a day. Take 30 minutes before breakfast and supper Active TRIAMCINOLONE ACETONIDE 0.5 % EX CREA apply twice daily as needed Active MECLIZINE HCL 12.5 MG PO TABS Take by mouth 3 times a day as needed. Active COLACE 100 MG PO CAPS Take 100 mg by mouth 2 times a day. Active AMITRIPTYLINE HCL 50 MG PO TABS Take 50 mg by mouth at bedtime. Active ZETIA 10 MG PO TABS Take 10 mg by mouth daily. Active NEXIUM 40 MG PO PACK Take 40 mg by mouth daily before breakfast. Active LYRICA 75 MG PO CAPS Take 75 mg by mouth 2 times a day. Active VITAMIN B-12 1000 MCG PO TABS Take 1,000 mcg by mouth daily. Active albuterol-ipratropi um (DUONEB) 2.5-0.5 MG/3ML nebulizer solution Inhale 3 mL via nebulizer every 6 hours as needed. Active Leland-3 Fatty Acids (FISH OIL) 1000 MG Capsule Take 1,000 mg by mouth daily. Active traMADol (ULTRAM) 50 MG Tablet Take 50 mg by mouth every 6 hours as needed for Pain. Active temazepam (RESTORIL) 15 MG Capsule Take 15 mg by mouth at bedtime as needed for Sleep. Active Rosuvastatin Calcium 5 MG Oral Tablet Take 5 mg by mouth every night at bedtime. Active Probiotic Product (PROBIOTIC-10 ULTIMATE) CAPS Take by mouth. Active guaifenesin ER (MUCINEX) 600 MG [id number]:as needed Take 600 mg by mouth 2 times a day. Indications: as needed Active Ketoconazole 2 % cream Apply topically to affected area daily. Apply to BL hands Active Ascorbic Acid (VITAMIN C) 100 MG chewable tablet Take 25 mg by mouth daily. Active clopidogrel (PLAVIX) 75 MG TabletIndications:i n evening Take 75 mg by mouth daily. Indications: in evening Active PURACYN PLUS RX wound & skin care fliptop SOLN Apply topically to affected area daily. Apply to right lower extremity wounds 1000 mL 03/15/2020 Active silver sulfadiazine (SILVADENE) 1 % cream Apply topically to affected area daily. To affected area. 50 g 1 03/17/2020 Active Additional Information Patient not taking.Reported on 01/18/2024 Aspirin Buf(DhSkdg-IbNtws-O gO) 81 MG Oral Tablet 81 mg. 04/30/2020 Active Tandem Plus 162-115.2-1 MG Oral Capsule Take 1 Cap by mouth daily. 05/26/2020 Active Vitamin D3 125 MCG (5000 UT) Oral Capsule Take 3,000 Units by mouth daily. Active Systane Complete 0.6 % Ophthalmic Solution (Propylene Glycol) Instill 1 Drop into eye. Active Ipratropium-Albuter ol 20-100 MCG/ACT Inhalation Aerosol Solution (Combivent Respimat) Inhale 1 Puff by mouth 4 times a day. May take additional inhalations as required not to exceed 6 in 24 hours Active Naloxone HCl 0.4 MG/ML Injection Solution Cartridge Inject 0.4 mg under the skin once. Active Aspirin 81 MG Oral Tablet Chewable (Aspirin 81) Take 81 mg by mouth daily. Active Fluticasone Propionate 50 MCG/ACT Nasal Suspension (Flonase) Administer 1 Volcano into nostril daily. Active Tobramycin-Dexameth asone 0.3-0.1 % Ophthalmic Suspension (Tobradex) Instill into the right eye 1 Drop in the morning AND 1 Drop at noon AND 1 Drop in the evening AND 1 Drop before bedtime. Shake before each use.. 2.5 mL 03/10/2022 Active Erythromycin 5 MG/GM Ophthalmic Ointment Apply a small amount of ointment to right lower eyelid incision four times daily for two weeks, then at bedtime only. 3.5 g 2 03/10/2022 Active Warfarin Sodium 3 MG Oral Tablet (Coumadin) Take 1 Tablet (3 mg) by mouth daily. 30 Tablet 5 10/27/2022 Active Amitriptyline HCl 50 MG Oral Tablet (Elavil) Take 1 Tablet by mouth at bedtime. 90 Tablet 3 11/18/2022 Active Additional Information Patient not taking.Reported on 01/18/2024 Ketoconazole 2 % External Cream APPLY A THIN FILM TO BOTH PALMS TWICE DAILY 30 g 1 11/18/2022 Active Rosuvastatin Calcium 5 MG Oral Tablet (Crestor) TAKE ONE TABLET BY MOUTH AT BEDTIME 90 Tablet 3 11/18/2022 Active Warfarin Sodium 3 MG Oral Tablet (Coumadin) Take 1 Tablet by mouth daily. 30 Tablet 5 11/18/2022 Active Triamcinolone Acetonide 0.5 % External Cream (Aristocort) Apply a thin film topically to the scalp twice daily for 7 days 15 g 2 11/18/2022 Active predniSONE 10 MG Oral Tablet (Deltasone) Take 4 tabs daily for 4 days, then 3 tabs daily for 4 days, then 2 tabs daily for 4 days, then 1 tab daily for 4 days, then stop. 40 Tablet 11/18/2022 Active Additional Information Patient not taking.Reported on 01/18/2024 Temazepam 7.5 MG Oral Capsule (Restoril) Take 1 Capsule by mouth at bedtime as needed for sleep 30 Capsule 11/18/2022 Active traMADol HCl 50 MG Oral Tablet (Ultram) Take 1 tablet by mouth every 4 to 6 hours as needed for moderate (4-6) pain 60 Tablet 11/18/2022 Active Additional Information Patient not taking.Reported on 01/18/2024 Ketoconazole 2 % External Cream APPLY A THIN FILM TO BOTH PALMS TWICE DAILY 30 g 1 01/19/2023 Active Temazepam 7.5 MG Oral Capsule (Restoril) Take 1 Capsule by mouth at bedtime as needed for sleep 30 Capsule 01/19/2023 Active traMADol HCl 50 MG Oral Tablet (Ultram) Take 1 Tablet by mouth 2 times a day as needed for moderate pain 60 Tablet 01/19/2023 Active Additional Information Patient not taking.Reported on 01/18/2024 Warfarin Sodium 3 MG Oral Tablet (Coumadin) Take 1 Tablet by mouth daily. 30 Tablet 5 01/19/2023 Active Ezetimibe 10 MG Oral Tablet (Zetia) Take 1 Tablet by mouth daily. 90 Tablet 3 01/19/2023 Active Albuterol Sulfate HFA 108 (90 Base) MCG/ACT Inhalation Aerosol Solution Inhale 2 puffs every 6 hours 54 g 3 02/17/2023 Active Umeclidinium [place] 62.5 MCG/ACT Inhalation Aerosol Powder Breath Activated (INCRUSE ellipta) Inhale 1 inhalfation daily - doses should be take at least 24 hours apart. 90 Each 3 02/17/2023 Active Budesonide-Formoter ol Fumarate 160-4.5 MCG/ACT Inhalation Aerosol (Symbicort) Inhale 2 puffs by mouth 2 times a day. 30.6 g 3 02/17/2023 Active Warfarin Sodium 1 MG Oral Tablet (Coumadin) Take 1 tab by mouth Daily 90 Tablet 2 02/17/2023 Active Amitriptyline HCl 25 MG Oral Tablet (Elavil) Take 1 Tablet by mouth every night at bedtime. 90 Tablet 02/17/2023 Active Additional Information Patient not taking.Reported on 01/18/2024 Albuterol Sulfate HFA 108 (90 Base) MCG/ACT Inhalation Aerosol Solution Inhale 2 puffs by mouth every 6 hours As Needed for shortness of breath or wheezing 8.5 g 3 03/08/2023 Active Budesonide-Formoter ol Fumarate 160-4.5 MCG/ACT Inhalation Aerosol (Symbicort) inhale 2 puffs by mouth twice a day 10.2 g 1 03/08/2023 Active Incruse Ellipta 62.5 MCG/ACT Inhalation Aerosol Powder Breath Activated (umeclidinium [place]) Inhale 1 puff by mouth daily. 30 Each 1 03/08/2023 Active Ipratropium-Albuter ol 0.5-2.5 (3) MG/3ML Inhalation Solution (Duoneb) 3 mL inhaled via nebulizer every 6 hours As Needed for shortness of breath or wheezing 180 mL 5 03/08/2023 Active Temazepam 7.5 MG Oral Capsule (Restoril) Take 1 Capsule by mouth at bedtime as needed for sleep. 30 Capsule 08/24/2023 Active Cilostazol 100 MG Oral Tablet (Pletal) TAKE ONE TABLET BY MOUTH TWICE A DAY 30 MINUTES BEFORE BREAKFAST AND SUPPER 60 Tablet 3 09/01/2023 Active Esomeprazole Magnesium 40 MG Oral Capsule Delayed Release TAKE ONE CAPSULE BY MOUTH EVERY DAY 90 Capsule 3 09/01/2023 Active Temazepam 7.5 MG Oral Capsule (Restoril) Take 1 capsule by mouth at bedtime as needed for sleep 30 Capsule 09/01/2023 Active Triamcinolone Acetonide 0.5 % External Cream (Aristocort) 1 appl topical bid,x7 day,Instr:apply a thin film to scalp 15 g 2 09/01/2023 Active Ezetimibe 10 MG Oral Tablet (Zetia) Take 1 tablet by mouth daily 90 Tablet 3 09/01/2023 Active predniSONE 10 MG Oral Tablet (Deltasone) Take 2 tablets by mouth daily with food for five days, then take 1 tablet by mouth daily for five days. 15 Tablet 09/05/2023 Active Cilostazol 100 MG Oral Tablet (Pletal) TAKE ONE TABLET BY MOUTH TWICE A DAY 30 MINUTES BEFORE BREAKFAST AND SUPPER 60 Tablet 3 11/22/2023 Active Pregabalin 75 MG Oral Capsule (Lyrica) Take 1 Capsule by mouth 2 times a day. 60 Capsule 3 11/22/2023 Active Meclizine HCl 12.5 MG Oral Tablet (Antivert) TAKE 1 TABLET, ORALLY, THREE TIMES DAILY IF NEEDED FOR DIZZINESS. 90 Tablet 11 12/07/2023 Active Ipratropium-Albuter ol 20-100 MCG/ACT Inhalation Aerosol Solution (Combivent Respimat) Inhale 1 puff by mouth four times daily - may take additional inhalations as required - not to exceed 6 inhalations in 24 hours. 4 g 2 02/23/2024 Active Combivent Respimat 20-100 MCG/ACT Inhalation Aerosol Solution (Ipratropium-Albute rol) Inhale 1 puff by mouth four times daily - may take additional inhalations as required - not to exceed 6 inhalations in 24 hours. 4 g 2 03/01/2024 Active Esomeprazole Magnesium 40 MG Oral Capsule Delayed Release TAKE ONE CAPSULE BY MOUTH EVERY DAY 90 Capsule 3 03/06/2024 Active Clopidogrel Bisulfate 75 MG Oral Tablet (pLAVix) Take 1 Tablet by mouth daily. 90 Tablet 3 04/30/2024 Active Warfarin Sodium 3 MG Oral Tablet (Coumadin) Take 1 tablet by mouth daily. 30 Tablet 5 05/30/2024 Active Incruse Ellipta 62.5 MCG/ACT Inhalation Aerosol Powder Breath Activated (umeclidinium [place]) Inhale 1 puff by mouth once daily. 90 Each 1 06/14/2024 Active documented as of this encounter (statuses as of 06/22/2024) Active Problems Problem Noted Date Diagnosed Date Stebbins filter in place 09/23/2021 COPD (chronic obstructive pulmonary disease) 01/2021 Cellulitis of right lower extremity 03/11/2020 Peripheral vascular disease 03/11/2020 RLS (restless legs syndrome) 03/11/2020 RSD (reflex sympathetic dystrophy) 03/11/2020 Anterior epistaxis 08/25/2015 Biopsy showed an excoriation 11/25/2005 LUMBAGO 11/23/2005 Inflammation of sacroiliac joint 11/23/2005 ADVANCE DIRECTIVE INFORMATION 10/25/2005 Overview: No, Advance Directive brochure given to patient. documented as of this encounter (statuses as of 06/22/2024) Resolved Problems Problem Noted Date Diagnosed Date Resolved Date NONSPECIF SKIN ERUPT NEC 11/08/200503/2006 documented as of this encounter (statuses as of 06/22/2024) Immunizations Name Administration Dates Next Due COVID-19 mRNA, LNP-s, No Pre serve, 2-Dose Series (Sentilla) 12/09/2021 DTaP Dipth/Tet/Acell Pertussis (Infanrix), Peds 10/16/2010 Pneumococcal Conjugate Vacc, 13 Valent (Prevnar) 08/30/2014 Pneumococcal Polysaccharide PPV23 (Pneumovax) 08/27/2008 Seasonal Influenza Virus Vac cine, Unspecified Formulation 10/05/2021,07/24/2020,09/23/2015,08/30 Varicella Zoster Vaccine (Adult) 09/23/2015 documented as of this encounter Social History Tobacco Use Types Packs/Day Years Used Date Smoking Tobacco: Every Day Cigarettes 0.5 55 Started: 03/09/1966; Last attempted to quit: 03/09/2021 Smokeless Tobacco: Never Comments:occasionally Alcohol Use Standard Drinks/Week Comments No 0 (1 standard drink = 0.6 oz pur e alcohol) Utilities Answer Date Recorded Do you have trouble paying y our heating, water, or electric bill? (Adult - for ages 18 years and over) Not on file 05/08/2024 Is your family able to pay t he heat, water, or electric bill? (Household - for ages 0-17 years) Not on file 05/08/2024 Does your family have access to good internet? (Household - for ages 0-17 years) Not on file 05/08/2024 Social Connections Answer Date Recorded How often do you feel lonely or isolated from those around you? (Adult - for ages 18 years and over) Not on file 05/08/2024 Sex and Gender Information Value Date Recorded Sex Assigned at Not on file Gender Identity Not on file Sexual Orientation Not on file Job Start Date Occupation Industry Not on file Not on file Not on file documented as of this encounter Last Filed Vital Signs Vital Sign Reading Time Taken Comments Blood Pressure 146/63 06/21/2024 6:00 PM EDT Pulse 78 06/21/2024 6:00 PM EDT Temperature 36.3 C (97.3 F) 06/21/2024 2:27 PM ED T Respiratory Rate 22 06/21/2024 6:00 PM EDT Oxygen Saturation 93% 06/21/2024 6:00 PM EDT Inhaled Oxygen Concentration - - Weight 70.8 kg (156 lb) 06/21/2024 2:27 PM EDT Height 175.3 cm (5' 9") 06/21/2024 2:27 PM EDT Body Mass Index 23.04 06/21/2024 2:27 PM EDT documented in this encounter Functional Status Functional Status Response Date of Assess ment Are you deaf or do you have serious difficulty hearing? No-has b/l hearing aides 03/09/2021 Are you blind or do you have serious difficulty seeing, even when wearing glasses? Yes-cataract surgeery in 03/09/2021 Do you have serious difficul ty walking or climbing stairs? (5 years old or older) Yes-use a cane 03/09/2021 Do you have difficulty dress ing or bathing? (5 years old or older) No 03/09/2021 Because of a physical, menta l, or emotional condition, do you have difficulty doing errands alone such as visiting a doctor s office or shopping? (15 years old or older) No 03/09/2021 Cognitive Status Response Date of Assessm ent Because of a physical, menta l, or emotional condition, do you have serious difficulty concentrating, remembering, or making decisions? (5 years old or older) No 03/09/2021 documented as of this encounter Discharge Instructions * Discharge Instructions* Toby Kelsey DO - 06/21/2024 5:45 PM EDT Your labs revealed low potassium. Please refer to the attachment for information and instructions and foods that are high in potassium. You are C diff study is negative. The rest of your stool studies are pending. Make sure you are hydrating. You can supplement with non sugary electrolyte beverages. Please follow-up with your primary care doctor. If you develop any new or concerning symptoms such as chest pain, difficulty breathing, fevers, persistent nausea/vomiting, inability to tolerate oral hydration, severe abdominal pain, bloody diarrhea, you are feeling more weak or lightheaded or any other concerning symptoms please return to the emergency department for evaluation. documented in this encounter ED Notes * Toby Kelsey DO - 06/21/2024 3:25 PM EDT HISTORY OF PRESENT ILLNESS Carlos Andrade is a 79 year old male who presents to the ED for evaluation of Diarrhea. The patient was seen at 06/21/24 1507. 79-year-old male with a history of COPD, peripheral vascular disease, restless leg syndrome presenting to the emergency department with diarrhea. The patient reports on Tuesday he developed the diarrhea. He was having a roughly 4-5 episodes a day. It was brown and liquidy. He started taking Imodium and it seemed to help but then Tuesday the diarrhea worsened. He is having at least 10-12 episodes a day. It is mostly clear liquid but a little bit brown. No black or bloody stool. He has cramping intermittently. About an hour later he will have another bowel movement. Currently he is not complaining of any abdominal pain. He has not had any nausea or vomiting. Denies any fevers but does have intermittent chills. He denies any respiratory symptoms or chest pain. Hehas been hydrating. He feels that he has been overall keeping up but is concerned he could be getting dehydrated still on his doctor was concerned about this as well. He denies any urinary symptoms. He has not had any sick contacts. He denies any recent antibiotic use the last time being about fivemonths ago. He also denies any recent hospitalizations or surgeries. History provided by: patient church official used: No Diarrhea Review of Systems Gastrointestinal: Positive for diarrhea. The patient's allergies, past history, and medications were reviewed. PHYSICAL EXAM Initial Vitals (see all): BP 124/45 | Pulse 71 | Resp 28 | Temp 97.3 | O2 97 %, Room Air, None | Weight 70.76 kg | Height 175.3 cm | BMI 23.04 kg/m2 Initial Pain Assessment (see all): 0 (no pain)/10 ([facility] Adult Scale 0-10) Physical Exam Vitals and nursing note reviewed. Constitutional: General: He is not in acute distress. Appearance: Normal appearance. He is not ill-appearing. HENT: Head: Normocephalic and atraumatic. Nose: Nose normal. Mouth/Throat: Mouth: Mucous membranes are moist. Pharynx: Oropharynx is clear. Eyes: Extraocular Movements: Extraocular movements intact. Pupils: Pupils are equal, round, and reactive to light. Cardiovascular: Rate and Rhythm: Normal rate and regular rhythm. Pulmonary: Effort: Pulmonary effort is normal. No respiratory distress. Breath sounds: Normal breath sounds. No wheezing, rhonchi or rales. Abdominal: General: Abdomen is flat. There is no distension. Palpations: Abdomen is soft. Tenderness: There is no abdominal tenderness. There is no guarding. Musculoskeletal: Cervical back: Normal range of motion. Right lower leg: No edema. Left lower leg: No edema. Skin: General: Skin is warm and dry. Neurological: General: No focal deficit present. Mental Status: He is alert. Psychiatric: Mood and Affect: Mood normal. Behavior: Behavior normal. PROCEDURES AND TREATMENTS ED Orders | ED Results MEDICAL DECISION MAKING Nursing notes and vital signs were reviewed. ED Course as of 06/21/24 1816 Summer Jun 21, 2024 174 Labs revealed hypokalemia. This was repleted. CBC reassuring. GI studies and process. Lipase negative. Patient willing to wait for the C diff study to determine whether he needs vancomycin. Overall well-appearing sitting at the edge of the bed. If his C diff study is negative I will discharge him with return precautions and follow-up to his primary care doctor. I am going to give him hypokalemia handout so he knows what foods the to help keep his potassium up. [AT] 1814 C diff negative. Patient will be discharged with return precautions. [AT] ED Course User Index [AT] Toby Kelsey DO Differential Diagnoses Based on my history, physical exam, and evaluation, the differential includes, but is not limited, to the following diagnoses: Gastroenteritis, enteritis, colitis, dehydration, electrolyte abnormality, viral illness, IBS, IBD unlikely. 79-year-old male presenting with diarrhea. His diarrhea has worsened despite Imodium use. He has intermittent abdominal cramping but no abdominal pain currently. He is nontender on exam and soft. Hisvitals are overall reassuring. He is ambulating here in the emergency to the bathroom and back. We are going to try and obtain a stool sample while he is here to send off for C diff and other stool studies. Labs will be obtained including a CBC, metabolic panel and lipase. At this time I do not think he needs imaging as he is nontender, overall well-appearing and without any fevers. Amount and/or Complexity of Data Reviewed Labs: ordered. Risk Prescription drug management. Clinical Impressions Diarrhea, unspecified type Hypokalemia Disposition Discharged. The patient's condition at disposition was: stable. Toby Kelsey * Cassandra Connolly RN - 06/21/2024 2:41 PM EDT Pt comes in complaining of diarrhea since Sunday 06/17. Was taking imodium that was helping but isno longer helping. Reports having 10-12 episodes of liquid diarrhea. Having abdominal cramping. Denies any n/v. Denies any recent antibiotic use. Is on blood thinners. Denies any black or tarry stools. documented in this encounter Miscellaneous Notes * ED Communications Systems Engineer Note - Vidhya Bell RN - 06/21/2024 6:28 PM EDT Discharge instructions reviewed with the patient at bedside. Patient instructed to follow up with their PCP and return to the ED should their symptoms worsen. Patient verbalized understanding and denies any additional quesitons at this time. * Pt Handout (on AVS) - Low Toby Beltran, - 06/21/2024 5:46 PM EDT [id number] Discharge Instructions for Hypokalemia You have been diagnosed with hypokalemia. This means you have a low level of potassium in your blood. Potassium helps your nerve and muscle cells work as they should. These cells include the cells inyour heart. A low level of potassium in the blood can cause serious problems, such as abnormal heart rhythms and even a heart attack. Diet changes Eat more potassium-rich foods such as: Bananas Oranges and orange juice Tomatoes, tomato sauce, and tomato juice Leafy green vegetables, such as spinach, kale, salad greens, collards, and chard Melons (all kinds) Pomegranates Peas Beans Potatoes Sweet potatoes Avocados, including guacamole Vegetable juices, such as V8 Fruit juices All nuts and seeds Fish, including tuna, halibut, salmon, cod, snapper, olivia, swordfish, and perch Milk, including fat-free, low-fat, whole, chocolate, and buttermilk Soy milk Other home care Take a potassium supplement as directed by your healthcare provider. After heavy exercise or any activity that causes you to sweat a lot, grab a beverage high in potassium. This includes chocolate milk, coconut water, orange juice, or low-sodium vegetable juices. Be sure to eat foods or drink fluids with potassium if you have diarrhea or vomiting. Have your potassium levels checked regularly as directed. Take all medicines exactly as directed. Tell your healthcare provider about all prescription and ebju-pkw-wtfagwq medicines you are taking. This includes herbal products. Some water pills (diuretics) can cause you to lose potassium. Don't have foods that are high in salt. Pass up canned and prepared foods that are high in salt. Follow-up Make a follow-up appointment as directed by our staff. Keep all follow-up appointments. Your healthcare provider needs to monitor your condition closely. When to call your healthcare provider Call your provider right away or go to the emergency room if you have any of the following: Vomiting Fatigue Diarrhea Rapid, irregular heartbeat Shortness of breath Chest pain Muscle cramps, spasms, or twitching Weakness Paralysis Last Reviewed Date: 10/21/202219993010-7403 [employer]. All rights reserved. This information is not intended as a substitute for professional medical care. Always follow your healthcare professional's instructions. * ED Communications Systems Engineer Note - Sagrario Cutler RN - 06/21/2024 3:25 PM EDT Pt has been having worsening diarrhea since 06/17. Pt was taking imodium but it is not helping. Pt reports having 10-12 watery brown BM's a day. Reports every hour or so he will get a pain in his abdomen and about an hour later he has a BM. Pt denies N/V, denies fever, cough, CP, SOB. Pt is on bloodthinner but reports he has been watching for bloody or black stools very closely and has not had any. Pt states he has been trying to drink a lot of fluids to stay hydrated. Pt reports all he has eaten today is one cookie. Pt has hyperactive bowel sounds. Pt is AAOx4, resting in bed with call celeste in reach, pt aware of need for stool sample. documented in this encounter Plan of Treatment Pending Results Name Type Priority Associated Diagnoses Date /Time GASTROINTESTINAL PATHOGEN PANEL, STOOL Lab Routine 06/21/2024 5:08 PM EDT GASTROINTESTINAL PATHOGEN PANEL PCR Lab Routine 06/21/2024 5:08 PM EDT GASTROINTESTINAL PATHOGEN PANEL CULTURE Lab Routine 06/21/2024 5:08 PM EDT Scheduled Orders Name Type Priority Associated Diagnoses Orde r Schedule GASTROINTESTINAL PATHOGEN PANEL, STOOL Lab Routine One Time for 1 Occurrences starting 06/21/2024 until 06/21/2024 GASTROINTESTINAL PATHOGEN PANEL PCR Lab Routine Once for 1 Occur rences starting 06/21/2024 until 06/21/2024 GASTROINTESTINAL PATHOGEN PANEL CULTURE Lab Routine Once for 1 Occur rences starting 06/21/2024 until 06/21/2024 Health Maintenance Due Date Last Done Comments DISCUSS TOBACCO CESSATION (REFER TO SMARTSET #3340) 1945 Depression Screening 1959 Alpha-1 Antitrypsin 1965 Hepatitis C Screening 1965 Lung Cancer Screening 1997 Zoster Vaccines (2 of 3) 11/18/2015 09/23/2015 Colonoscopy 07/14/2020 07/14/2018, 06/22, 10/27/2012, Additional history exists DTaP,Tdap,and Td Vaccines (2 - Tdap) 10/16/2020 10/16/2010 *COPD SEVERITY VERIFIED BY PFT 09/25/2021 COVID-19 Vaccine ( season) 2023 12/09/2021, 12/09/2021, 03/25/2021, Additional history exists Influenza Vaccine (FLU shot) (#1) 2024 10/05/2021, 07/24/2020, 10/26/2019, Additional history exists O2 ASSESSMENT COMPLETED IN PAST YEAR FOR COPD 06/21/2025 06/21/2024 RETIRED - COLONOSCOPY-EVERY 2 YRS AGES 18-100 [...] this encounter Medical Devices Implanted Type 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 Construction 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 Manager Device Identifier Shelf Expiration Date Model / Serial / Lot Lens Intraoc 20.0 - [id number] - [id number] Implanted:Qty: 1 on 03/31/2021 by Harsh Sosa MD at OR [facility] Right: Eye [employer] 11/20/2025 [id number] / [id number] / [id number] Lens Intraoc 20.5 - [id number] - [id number] Implanted:Qty: 1 on 04/14/2021 by Harsh Sosa MD at OR [facility] Left: Eye [employer] 11/20/2025 [id number] / [id number] / [id number] documented as of this encounter Procedures Procedure Name Priority Date/Time Associated Diagnosis Comments CLOSTRIDIUM DIFFICILE, PCR Routine 06/21/2024 5:08 PM EDT DIFFERENTIAL, AUTOMATED STAT 06/21/2024 3:23 PM EDT COMPREHENSIVE METABOLIC PANEL STAT 06/21/2024 3:23 PM EDT CBC STAT 06/21/2024 3:23 PM EDT LIPASE STAT 06/21/2024 3:23 PM EDT CBC STAT 06/21/2024 3:23 PM EDT EXTRA DANIELS TOP Routine 06/21/2024 3:17 PM EDT EXTRA LIGHT BLUE TOP Routine 06/21/2024 3:17 PM EDT EXTRA TUBES Routine 06/21/2024 3:17 PM EDT PT INR Add-on 06/21/2024 3:17 PM EDT documented in this encounter Results * CLOSTRIDIUM DIFFICILE, PCR (06/21/2024 5:08 PM EDT) Stool Consistency Liquid 06/21/2024 6:12 PM EDT LABORATORY [facility] Clostridium difficile Result Negative. No C. difficile toxin B gene DNA detected by PCR (Amplified Probe). Negative 06/21/2024 6:12 PM EDT LABORATORY [facility] Stool Stool specimen / Unknown Non-blood Collection / Unknown 06/21/2024 5:08 PM EDT 06/21/2024 5:12 PM EDT Toby Kelsey LAB MICRO - GENERAL ORDERABLES LABORATORY [address] [place] [address] * DIFFERENTIAL, AUTOMATED (06/21/2024 3:23 PM EDT) WBC 8.87 4.00 - 10.80 K/uL 06/21/2024 3:40 PM EDT LABORATORY [facility] Neutrophils % 57.0 40.0 - 75.0 % 06/21/2024 3:40 PM EDT LABORATORY [facility] Lymphocytes % 31.6 18.0 - 42.0 % 06/21/2024 3:40 PM EDT LABORATORY [facility] Monocytes % 8.7 1.0 - 11.0 % 06/21/2024 3:40 PM EDT LABORATORY [facility] Eosinophils % 1.9 0.0 - 6.0 % 06/21/2024 3:40 PM EDT LAB[facility]ATORY [facility] Basophils % 0.6 0.0 - 2.0 % 06/21/2024 3:40 PM EDT LABORATORY [facility] Immature Granulocytes % 0.2 0.0 - 2.0 % 06/21/2024 3:40 PM EDT LABORATORY GL Absolute Neutrophils 5.06 1.80 - 7.70 K/uL 06/21/2024 3:40 PM EDT LABORATORY GL Absolute Lymphocytes 2.80 1.00 - 4.80 K/ul 06/21/2024 3:40 PM EDT LABORATORY GL Absolute Monocytes 0.77 0.00 - 1.10 K/uL 06/21/2024 3:40 PM EDT LABORATORY [facility] Absolute Eosinophils 0.17 0.00 - 0.70 K/uL 06/21/2024 3:40 PM EDT LABORATORY GL Absolute Basophils 0.05 0.00 - 0.20 K/uL 06/21/2024 3:40 PM EDT LABORATORY [facility] Absolute Immature Granulocytes 0.02 0.00 - 0.20 K/uL 06/21/2024 3:40 PM EDT LABORATORY [facility] Blood Venous blood specimen / Unknown Venipuncture / Unknown 06/21/2024 3:23 PM EDT 06/21/2024 3:30 PM EDT Toby Kelsey LAB BLOOD ORDERABLE S LABORATORY [address] [place] [id number] * (ABNORMAL) CBC (06/21/2024 3:23 PM EDT) [facility] WBC 8.87 4.00 - 10.80 K/uL 06/21/2024 3:40 PM EDT LABORATORY GL RBC 4.48 4.50 - 5.25 M/uL 06/21/2024 3:40 PM EDT LABORATORY [facility] HGB 13.8(L) 14.0 - 16.8 g/dL 06/21/2024 3:40 PM EDT LABORATORY GL HCT 39.9(L) 40.0 - 48.4 % 06/21/2024 3:40 PM EDT LAB[facility]ATORY [facility] MCV 89.1 82.0 - 99.5 fL 06/21/2024 3:40 PM EDT LAB[facility]ORY [facility] MCH 30.8 27.0 - 34.0 pg 06/21/2024 3:40 PM EDT [facility]ORY [facility] MCHC 34.6 32.0 - 36.0 g/dL 06/21/2024 3:40 PM EDT LAB[facility]ATORY [facility] RDW 14.6 11.5 - 15.5 % 06/21/2024 3:40 PM EDT LAB[facility]ATORY [facility] PLT 208 140 - 400 K/uL 06/21/2024 3:40 PM EDT LAB[facility]ATORY [facility] MPV 9.5 6.6 - 11.1 fL 06/21/2024 3:40 PM EDT LABORATORY GL nRBCs 0 <=0 /100 WBCs 06/21/2024 3:40 PM EDT LAB[facility]ATORY [facility] Blood Venous blood specimen / Unknown Venipuncture / Unknown 06/21/2024 3:23 PM EDT 06/21/2024 3:30 PM EDT [facility] LAB[facility] [address] [place] [id number] * LIPASE (06/21/2024 3:23 PM EDT) Lipase 14 13 - 60 U/L 06/21/2024 4:04 PM EDT LAB[facility]ATORY [facility] Blood Venous blood specimen / Unknown Venipuncture / Unknown 06/21/2024 3:23 PM EDT 06/21/2024 3:30 PM EDT Toby Kelsey LAB BLOOD ORDERABLE S LABORATORY [address], [place] [id number] * (ABNORMAL) COMPREHENSIVE METABOLIC PANEL (06/21/2024 3:23 PM EDT) BUN 10 6 - 20 mg/dL 06/21/2024 4:04 PM EDT LABORATORY GL Creatinine 0.6 0.6 - 1.2 mg/dL 06/21/2024 4:04 PM EDT LABORATORY GL Estimated Glomerular Filtration Rate >90 >=60 mL/min 06/21/2024 4:04 PM EDT LABORATORY GL Comment:eGFR is calculated b ased on the CKD-EPI 2020 equation. Sodium 140 135 - 146 mmol/L 06/21/2024 4:04 PM EDT LABORATORY GL Potassium 3.2(L) 3.5 - 5.1 mmol/L 06/21/2024 4:04 PM EDT LABORATORY [facility] Chloride 104 98 - 107 mmol/L 06/21/2024 4:04 PM EDT LABORATORY [facility] CO2 26 22 - 32 mmol/L 06/21/2024 4:04 PM EDT LABORATORY [facility] Anion Gap 10 7 - 15 mmol/L 06/21/2024 4:04 PM EDT LABORATORY [facility] Glucose 93 70 - 120 mg/dL 06/21/2024 4:04 PM EDT LABORATORY [facility] Albumin 4.0 3.8 - 5.0 g/dL 06/21/2024 4:04 PM EDT LABORATORY [facility] AST 24 10 - 50 U/L 06/21/2024 4:04 PM EDT LABORATORY [facility] Alkaline Phosphatase 77 35 - 130 U/L 06/21/2024 4:04 PM EDT LABORATORY [facility] Bilirubin, Total 0.5 <=1.2 mg/dL 06/21/2024 4:04 PM EDT LABORATORY [facility] Calcium 9.2 8.4 - 10.2 mg/dL 06/21/2024 4:04 PM EDT LABORATORY [facility] Protein 6.6 6.0 - 8.3 g/dL 06/21/2024 4:04 PM EDT LABORATORY [facility] ALT 19 10 - 50 U/L 06/21/2024 4:04 PM EDT LABORATORY [facility] Blood Venous blood specimen / Unknown Venipuncture / Unknown 06/21/2024 3:23 PM EDT 06/21/2024 3:30 PM EDT [facility] S Performing Organization Address [facility] Co de Phone Number LABORATORY [address] [address] * (ABNORMAL) PT INR (06/21/2024 3:17 PM EDT) [facility] Prothrombin Time 33.9(H) 11.6 - 15.2 seconds 06/21/2024 4:19 PM EDT LABORATORY GL INR 3.3(H) 0.8 - 1.2 06/21/2024 4:19 PM EDT LAB[facility]ATORY [facility] Blood Venous blood specimen / Unknown Venipuncture / Unknown 06/21/2024 3:17 PM EDT 06/21/2024 3:32 PM EDT Narrative LABORATORY [facility] - 06/21/2024 4:19 PM EDT Warfarin Therapy INR: 2.0-3.0 conventional anticoagulation INR: 2.5-3.5 high intensity anticoagulation [facility] B[facility] ORDER[facility] S Performing Organization Address City/[facility]/ZIP Co de Phone Number LABORATORY [address] [address] * EXTRA DANIELS TOP (06/21/2024 3:17 PM EDT) Blood Venous blood specimen / Unknown Venipuncture / Unknown 06/21/2024 3:17 PM EDT 06/21/2024 3:31 PM EDT Toby Kelsey DO LAB BLOOD ORDERABLE S Performing Organization Address [facility] Co de Phone Number LABORATORY [address] [address] * EXTRA LIGHT BLUE TOP (06/21/2024 3:17 PM EDT) Blood Venous blood specimen / Unknown Venipuncture / Unknown 06/21/2024 3:17 PM EDT 06/21/2024 3:32 PM EDT [facility] S Performing Organization Address [facility] Co de Phone Number LABORATORY [address] [address] documented in this encounter Visit Diagnoses Diagnosis Diarrhea, unspecified type- Primary Hypokalemia Hypopotassemia documented in this encounter Administered Medications Inactive Administered Medications - up to 3 most recent administrations Medication Order MAR Action Action Date Dose Rate Site potassium chloride ER tab 40 mEq 40 mEq, Oral, ONCE, On Summer 06/21/24 at 1645, For 1 dose, This med should NOT be Crushed or Chewed Given 06/21/2024 4:19 PM EDT 40 mEq documented in this encounter Active and Recently Administered Medications Times are shown in EDT. Scheduled Medication Order 06/19/2024 06/20/2024 06/21/2024 potassium chloride ER tab 40 mEq (COMPLETED) 40 mEq, Oral, ONCE, On Summer 06/21/24 at 1645, For 1 dose, This med should NOT be Crushed or Chewed 1619 (Given - Provid er: Sagrario Cutler RN) documented in this encounter Additional Health Concerns Infection Onset Date Last Indicated Resolved Time Gastrointestinal Rule-Out 06/21/2024 06/21/2024 C. difficile Rule-Out 06/21/2024 06/21/20242023 6:12 PM EDT documented as of this encounter Advance Directives * Full Code [...] and were consensually agreed upon. Care Teams Custom Stock Maker Relationship Specialty Start Date End Date Robert Dominguez MD [address] [address] PCP - General Family Medicine 01/18/24 documented as of this encounter
[2024-12-07] MEDS ORDERED: ACETAMINOPHEN 325 MG TAB PO PRN (17:56)
[2024-12-07] MEDS ORDERED: ONDANSETRON INJ 2 MG/ML 2 ML VIAL IV PRN (17:56)
[2024-12-07] MEDS ORDERED: MECLIZINE 12.5 MG TAB PO PRN (17:56)
[2024-12-07] MEDS: ALBUT/IPRATROP 3MG/0.5MG NEB 3 ML VIAL INH SCH (19:55)
[2024-12-07] MEDS ORDERED: diphenhydrAMINE 50 MG/ML VIAL IV PRN (20:00)
[2024-12-07] MEDS ORDERED: EPINEPHrine INJ 1 MG/ML AMP IM PRN (20:00)
[2024-12-07] MEDS: guaiFENesin 600 MG TABCR PO SCH (21:08)
[2024-12-07] MEDS: DOXYCYCLINE HYCLATE 100 MG CAP PO SCH (21:09)
[2024-12-07] MEDS: MELATONIN 3 MG TAB PO PRN (21:09)
[2024-12-07] MEDS: cilostazoL 100 MG TAB PO SCH (21:09)
[2024-12-07] MEDS: FLUTICASONE/VILANTEROL 100/25MCG 14 PUFFS/INHALER INH SCH (21:09)
[2024-12-07] MEDS: PREGABALIN 75 MG CAP PO SCH (21:09)
--- NOTE | 2024-12-07 23:07 | Electrocardiogram Report ---
Test Reason : Blood Pressure : */* mmHG Vent. Rate : 98 BPM Atrial Rate : 98 BPM P-R Int : 118 ms QRS Dur : 64 ms QT Int : 362 ms P-R-T Axes : 90 65 63 degrees QTcB Int : 462 ms Normal sinus rhythm Nonspecific ST and T wave abnormality Abnormal ECG When compared with ECG of 15-Sep-2023 15:54, QT has lengthened Confirmed by Erlin Barcenas ([id number]) on 12/07/2024 11:07:45 PM Referred By: Confirmed By: Erlin Barcenas
[2024-12-08 06:55] LABS: Basophils # (auto) 0.01 K/uL (0.00-0.20); Basophils % (auto) 0.1 %; Eosinophils # (auto) 0.03 K/uL (0.00-0.50); Eosinophils % (auto) 0.2 %; Hematocrit (blood only) 34.8 % (42.0-52.0); Hemoglobin 11.6 g/dl (14.0-18.0); Immature Granulocytes # (auto) 0.09 K/uL (0.01-0.20); Immature Granulocytes % (auto) 0.6 %; Lymphocytes # (auto) 2.85 K/uL (1.20-3.40); Lymphocytes % (auto) 19.4 %; Mean Corpuscular Hemoglobin 29.3 pg (25.0-34.0); Mean Corpuscular Hgb Conc 33.3 g/dL (32.0-36.0); Mean Corpuscular Volume 87.9 fL (80.0-100.0); Monocytes # (auto) 1.04 K/uL (0.11-0.59); Monocytes % (auto) 7.1 %; Neutrophils # (auto) 10.65 K/uL (1.40-6.50); Neutrophils % (auto) 72.6 %; Platelet Count 236 K/uL (130-400); RDW Coefficient of Variation 14.2 % (11.5-14.5); RDW Standard Deviation 45.8 fL (36.4-46.3); Red Blood Count 3.96 M/uL (4.70-6.10); White Blood Count 14.67 K/ul (4.8-10.8)
[2024-12-08 07:17] LABS: INR 2.5 (0.9-1.1); Prothrombin Time 24.9 Seconds (9.0-12.0)
[2024-12-08 07:19] LABS: BUN Creatinine Ratio 16.9 (10-20); Calcium 9.3 mg/dl (8.6-10.3); Creatinine Clr Calc Pharmacy 96.8 ml/min; Magnesium 1.7 mg/dl (1.7-2.4); Potassium 4.3 mmol/L (3.5-5.1)
[2024-12-08] MEDS: FEXOFENADINE HCL 180 MG TAB PO SCH (07:39)
[2024-12-08] MEDS: FLUTICASONE PROPIONATE NA SPR 16 GM BTL SCH (07:39)
[2024-12-08] MEDS: EZETIMIBE 10 MG TAB PO SCH (07:39)
[2024-12-08] MEDS: CLOPIDOGREL BISULFATE 75 MG TAB PO SCH (07:39)
[2024-12-08] MEDS: PANTOprazole 40 MG TAB PO SCH (07:40)
[2024-12-08] MEDS: UMECLIDINIUM BROMIDE 62.5MCG/BLISTER 7 PUFFS/INHALER INH SCH (07:40)
[2024-12-08] MEDS: ROSUVASTATIN CALCIUM 10 MG TAB PO SCH (07:40)
[2024-12-08] MEDS: methylPREDNISolone 40 MG in SYRINGE 0 ML IV SCH (07:40)
[2024-12-08] MEDS ORDERED: NON-FORMULARY MEDICATION (Magnesium 250 mg tablet) PO SCH (09:00)
[2024-12-08] MEDS: levoFLOXacin/D5W 750 MG/150 ML BAG IV SCH (11:35)
[2024-12-08] MEDS ORDERED: CHLORASEPTIC (PHENOL) 1.4% SOLN 180 ML BTL MT PRN (13:06)
--- NOTE | 2024-12-08 13:07 | Hospitalist Progress Note ---
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 He presented on SOB/dyspnea and productive cough that began on 11/29. recently completed outpatient course of 50 mg of prednisone and has 2 doses left of a 7-day course of doxycycline. Patient admitted for hypoxia secondary to rhinovirus and COPD exacerbation. #Rhinovirus/COPD exacerbation/hypoxia Chest x-ray without evidence of pneumonia. Sputum culture growing Pseudomonaswill start IV Levaquin 750mg daily, careful monitoring of INRs while on levaquin. Qtc 462. Blood cultures: No growth at 24 hours Supportive care: IS, FV, mucinex 1200mg BID, scheduled DuoNebs Continue maintenance inhalers Will continue Solu-Medrol 40mg IV twice daily for now, goal to decrease his breathing improved Baseline is room air, wean O2 as able. Goal > 89% PT/OT consulted #History of PE/DVT Is on warfarin therapy with alternating doses between 2 and 3 mg. tonight's dose is the 2 mg dose, will monitor INR on Levaquin INR therapeutic currently 2.5, patient reports goal is 2.5-3. AM INR #Tobacco use Nicotine patch while inpatient. 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 States that he has been coughing up a lot of phlegm. He does not normally need oxygen at baseline. States that his breathing does feel a little better sitting up in the chair than he did while laying down. Complains of having a sore throat telemetry sinus rhythm in the 60s Review of Systems Review of Systems: All systems reviewed & are unremarkable except as noted in Subjective Physical Exam Physical Exam: General: no acute distress, nontoxic appearing vital signs as above HEENT: normocephalic, atraumatic; no scleral icterus; hearing aids in place CV: RRR; no murmurs. + LE edema Lungs: no accessory muscle use, on 2 L nasal cannula, does get conversationally dyspneic with prolonged talking. Lungs coarse in the bases ABD: Soft, NTP; BS present; Back: Thoracic kyphosis Neuro: A&Ox3; normal mood and affect; Results & Data Results & Data Vital Signs (Past 12 Hours) Vital Signs Temp Pulse Pulse Resp BP Pulse Ox O2 Del Method 12/08/24 11:36 98.6 F 82 17 145/72 H 96 Nasal Cannula 12/08/24 08:08 98.4 F 71 18 154/72 H 97 Nasal Cannula 12/08/24 07:34 79 18 96 Nasal Cannula 12/08/24 07:13 70 12/08/24 02:14 98.4 F 83 18 151/70 H 98 Nasal Cannula O2 Flow Rate 12/08/24 11:36 2 12/08/24 08:08 2 12/08/24 07:34 2 12/08/24 07:13 12/08/24 02:14 2 Laboratory Results CBC chemistry, mag and INR reviewed Sputum cultures reviewed Blood cultures reviewed Diagnostic Findings chest x-ray reviewed PG Care Time/CCT Total # of Minutes Spent Total Time Spent with Patient: Total time spent is greater than 50% in coordination of care (as documented) at patient's floor/unit and/or counseling patient: Coding Level of Care Code 79292 SUB INP/OBS CARE 3/50MIN Diagnoses COPD with exacerbation J44.1 Hypoxia R09.02 Rhinovirus B34.8 Current smoker F17.200 History of pulmonary embolism Z86.711
[2024-12-08] MEDS: WARFARIN SOD 2 MG TAB PO SCH (15:52)
[2024-12-09 06:19] LABS: Basophils # (auto) 0.01 K/uL (0.00-0.20); Basophils % (auto) 0.1 %; Hematocrit (blood only) 34.8 % (42.0-52.0); Hemoglobin 11.8 g/dl (14.0-18.0); Immature Granulocytes # (auto) 0.08 K/uL (0.01-0.20); Immature Granulocytes % (auto) 0.5 %; Lymphocytes # (auto) 1.65 K/uL (1.20-3.40); Mean Corpuscular Hemoglobin 30.1 pg (25.0-34.0); Mean Corpuscular Hgb Conc 33.9 g/dL (32.0-36.0); Mean Corpuscular Volume 88.8 fL (80.0-100.0); Mean Platelet Volume 9.2 fL (9.4-12.4); Monocytes # (auto) 0.53 K/uL (0.11-0.59); Monocytes % (auto) 3.5 %; Neutrophils # (auto) 12.73 K/uL (1.40-6.50); Neutrophils % (auto) 84.9 %; Platelet Count 247 K/uL (130-400); RDW Coefficient of Variation 14.5 % (11.5-14.5); Red Blood Count 3.92 M/uL (4.70-6.10)
[2024-12-09 06:36] LABS: BUN Creatinine Ratio 24.6 (10-20); Calcium 9.1 mg/dl (8.6-10.3); Creatinine Clr Calc Pharmacy 93.2 ml/min; Potassium 4.4 mmol/L (3.5-5.1)
[2024-12-09 06:53] LABS: Prothrombin Time 20.3 Seconds (9.0-12.0)
[2024-12-09] MEDS ORDERED: ALBUT/IPRATROP 3MG/0.5MG NEB 3 ML VIAL INH PRN (09:58)
--- NOTE | 2024-12-09 09:58 | Hospitalist Progress Note ---
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 He presented on SOB/dyspnea and productive cough that began on 11/29. recently completed outpatient course of 50 mg of prednisone and has 2 doses left of a 7-day course of doxycycline. Patient admitted for hypoxia secondary to rhinovirus and COPD exacerbation. #Rhinovirus/COPD exacerbation/hypoxia Chest x-ray without evidence of pneumonia. Sputum culture growing Pseudomonaswill start IV Levaquin 750mg daily, careful monitoring of INRs while on levaquin. Qtc 462. Blood cultures: No growth at 24 hours Supportive care: IS, FV, mucinex 1200mg BID, prn DuoNebs. Decrease Solu-Medrol 40mg IV to daily Continue maintenance inhalers Baseline is room air, wean O2 as able. Goal > 89% PT/OT consulted - PT pending, OT rec home with HH WBC 15 likely reactive from steroids. #History of PE/DVT Is on warfarin therapy with alternating doses between 2 and 3 mg. Goal 2-3, pt reports prefers to keep 2.5-3. Monitor INR on Levaquin INR 2.0 today but recieves 3mg dose tonight AM INR #Tobacco use Nicotine patch while inpatient. 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 Continues to have productive cough good appetite Review of Systems Review of Systems: All systems reviewed & are unremarkable except as noted in Subjective Physical Exam Physical Exam: General: no acute distress, nontoxic appearing vital signs as above HEENT: normocephalic, atraumatic; hearing aids in place CV: RRR; no murmurs. + LE edema Lungs: no accessory muscle use, on 1 L nasal cannula, lungs clear no wheezing. ABD: Soft, NTP; BS present; Back: Thoracic kyphosis Neuro: A&Ox3; normal mood and affect; Results & Data Results & Data Vital Signs (Past 12 Hours) Vital Signs Temp Pulse Pulse Resp BP Pulse Ox O2 Del Method 12/09/24 08:45 Nasal Cannula 12/09/24 07:56 92 H 18 95 Nasal Cannula 12/09/24 07:22 97.9 F 80 18 166/65 H 95 Nasal Cannula 12/09/24 07:07 71 12/09/24 02:24 97.7 F 93 H 16 105/67 95 Nasal Cannula 12/09/24 01:40 80 18 95 Nasal Cannula 12/08/24 22:54 97.9 F 65 18 129/74 96 Nasal Cannula 12/08/24 22:10 Nasal Cannula 12/08/24 21:55 73 O2 Flow Rate 12/09/24 08:45 1 12/09/24 07:56 1 12/09/24 07:22 1 12/09/24 07:07 12/09/24 02:24 12/09/24 01:40 2 12/08/24 22:54 2 12/08/24 22:10 2 12/08/24 21:55 Laboratory Results cbc, chemistry and INR reviewed PG Care Time/CCT Total # of Minutes Spent Total Time Spent with Patient: Total time spent is greater than 50% in coordination of care (as documented) at patient's floor/unit and/or counseling patient: Coding Level of Care Code 64330 SUB INP/OBS CARE 3/50MIN Diagnoses COPD with exacerbation J44.1 Hypoxia R09.02 Rhinovirus B34.8 Current smoker F17.200 History of pulmonary embolism Z86.711
[2024-12-09] MEDS: WARFARIN SOD 3 MG TAB PO SCH (15:56)
[2024-12-10 07:19] LABS: Mean Corpuscular Hemoglobin 29.8 pg (25.0-34.0); Mean Corpuscular Hgb Conc 33.3 g/dL (32.0-36.0); Mean Corpuscular Volume 89.3 fL (80.0-100.0); Mean Platelet Volume 9.2 fL (9.4-12.4); Platelet Count 261 K/uL (130-400); RDW Coefficient of Variation 14.6 % (11.5-14.5); RDW Standard Deviation 47.6 fL (36.4-46.3); Red Blood Count 4.03 M/uL (4.70-6.10); White Blood Count 13.32 K/ul (4.8-10.8)
[2024-12-10 07:42] LABS: BUN Creatinine Ratio 21.4 (10-20); Calcium 9.2 mg/dl (8.6-10.3); Creatinine Clr Calc Pharmacy 81.3 ml/min; Potassium 3.8 mmol/L (3.5-5.1)
[2024-12-10 07:43] LABS: INR 1.9 (0.9-1.1); Prothrombin Time 19.3 Seconds (9.0-12.0)
[2024-12-10 08:09] LABS: Basophils # (auto) 0.02 K/uL (0.00-0.20); Basophils % (auto) 0.2 %; Eosinophils # (auto) 0.06 K/uL (0.00-0.50); Eosinophils % (auto) 0.5 %; Immature Granulocytes # (auto) 0.06 K/uL (0.01-0.20); Immature Granulocytes % (auto) 0.5 %; Lymphocytes # (auto) 5.17 K/uL (1.20-3.40); Lymphocytes % (auto) 38.8 %; Monocytes # (auto) 1.03 K/uL (0.11-0.59); Monocytes % (auto) 7.7 %; Neutrophils # (auto) 6.98 K/uL (1.40-6.50); Neutrophils % (auto) 52.3 %
[2024-12-10] MEDS: methylPREDNISolone 40 MG in SYRINGE 0 ML IV SCH (09:07)
[2024-12-10] MEDS: WARFARIN SOD 3 MG TAB PO ONE (10:55)
--- NOTE | 2024-12-10 13:11 | Discharge Summary ---
Discharge Summary Date of Service December 10, 2024 Principal Dx & Hospital Course #1 = Principal Diagnosis (1) COPD with exacerbation: (2) Hypoxia: (3) Rhinovirus: (4) Current smoker: (5) History of pulmonary embolism: Plan Carlos is a 79-year-old male with PMH of COPD, chronic bronchitis, allergic rhinitis, tobacco use, recurrent pulmonary embolisms (on warfarin), and nocturnal hypoxia. He presented on SOB/dyspnea and productive cough that began on 11/29. recently completed outpatient course of 50 mg of prednisone and has 2 doses left of a 7-day course of doxycycline. Patient admitted for hypoxia secondary to rhinovirus and COPD exacerbation. #Rhinovirus/COPD exacerbation/hypoxia Chest x-ray without evidence of pneumonia. Sputum culture + for pseudomonas. WBC 15 likely reactive from steroids but is downtrending Had IV Levaquin inpatient, transitioned to PO for additional 3 days outpatient to complete treatment. Careful monitoring of INR. QTC 462 Prednisone taper on discharge. Was on 40mg IV Methylprednisolone inpatient. Continue maintenance inhalers Baseline is room air, wean O2 as able. Goal > 89% PT/OT rec HH Respiratory therapy w/ 2 step 12/10 and patient did not require oxygen to return home. #History of PE/DVT Is on warfarin therapy with alternating doses between 2 and 3 mg. Goal 2-3, pt reports prefers to keep 2.5-3. Monitor INR on Levaquin INR 1.9 12/10 - given 3mg Warfarin (typically has 2mg on Tuesday's) Advised to continue on home warfarin dosing and follow up closely for INR recheck outpatient. #Tobacco use Nicotine patch while inpatient. 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 He presented on SOB/dyspnea, and first of cough that began on 11/29. Patient was originally prescribed a course of antibiotics (doxycycline 100 mg twice daily) as well as prednisone 50 mg daily for what was presumed pn eumonia; Rx on 11/29. However, his symptoms have persisted. He endorses SOB with exertion, chest pain from coughing, and ongoing productive cough. He does have a history of pulmonary embolisms, for which she is on warfarin and reports good compliance. She denies using supplemental oxygen at home or CPAP at night. No sick contacts to his knowledge. He took all his regular morning medicine today. In addition to his regular medications, he has been using his inhaler more at home, which helps. He has also been taking Tylenol as needed for low-grade fevers (99 to 100 F) at home. Patient ambulates with a cane at baseline. No recent falls. Patient is a current everyday tobacco cigarette smoker; 0.5 PPD. He would like a nicotine patch while he is here. Denies any recent alcohol use. SpO2 88% on RA at time of admission; vitals otherwise stable. ED course: Solu-Medrol 60 mg IV DuoNeb 3 mL Ceftriaxone 2000 mg IV Magnesium sulfate 1 g IV ROS: Patient endorses low-grade fever (99 to 100 F), chills, lightheadedness with movements, LUCAS, chest pain (which he attributes to hacking cough), productive cough (greenish yellow), mild pleuritic CP, diarrhea (which patient attributes to recent prednisone usage), and chronic neuropathy in the arms and legs Patient denies body aches, syncope, hemoptysis, orthopnea, abdominal pain, N/V, burning with urination, or blood in the urine/stool. Discharge Exam General: no acute distress, nontoxic appearing vital signs as above HEENT: normocephalic, atraumatic; hearing aids in place CV: RRR; no murmurs. + LE edema Lungs: no accessory muscle use, lungs clear no wheezing, on room air. Back: Thoracic kyphosis Neuro: A&Ox3; normal mood and affect Discharge Plan Discharge Items Patient Disposition: Home - Home Health Services Reason For Visit: COPD EXACERBATION, RHINO (+) Discharge Diagnosis: COPD exacerbation, rhinovirus Activity: Resume your previous activity Non-emergency contact: Primary Care Provider Call non-emergency contact if: you have any medication questions and your symptoms worsen Follow-up/Referrals: Toya Colón CRNP [Primary Care Provider] - (PLEASE CALL YOUR PRIMARY CARE PROVIDER TO SCHEDULE A HOSPITAL DISCHARGE FOLLOW-UP APPOINTMENT WITHIN 7-10 DAYS) Diet: Regular Addtl Attending Provider Instructions: Mr. Andrade, You were recently hospitalized for ongoing shortness of breath and cough. You were found to have pneumonia and rhinovirus. You were treated appropriately. Please see recommendations below regarding discharge. 1. Please take Levofloxacin 750mg once daily for the next 3 days. Your next dose will be 12/11/2024. Please take with food to avoid GI upset. 2. Please take the steroid taper as prescribed. Your first dose at home will be 12/11/2024. 3. Please resume the remainder of your outpatient medications. 4. you will get home therapy which will help you get stronger. 5. Your next dose of Warfarin will be 12/11/2024. You had your dose in the hospital today. Please follow up to get your INR checked outpatient. 6. Please follow up with your PCP within 1-2 weeks of discharge. If you develop any worsening shortness of breath, worsening cough, fevers, or chills please report back to the ER for further care. Sincerely, Rachelle Morel PA-C Addtl Vp Ancillary Provider Instructions: Home Health has been set up for you with [facility] ( ). They will be in touch with you soon and plan to see you on Tuesday or this week. Pending Studies at Discharge: No Stand-Alone Forms: My [facility], Smoking Cessation Medications and DC Order Prescriptions: New levofloxacin 750 mg tablet 750 mg PO DAILY Qty: 3 0RF prednisone 10 mg tablet 10 mg PO DIRECTED Qty: 16 0RF Rx Instructions: Take 4 tablets by mouth x 1 day followed by 3 tablets by mouth x2 days followed by 2 tablets by mouth x2 days followed by 1 tablet by mouth x2 days. Continued Incruse Ellipta 62.5 mcg/actuation blister with device 1 inh inhalation DAILY Qty: 3 1RF fluticasone propion-salmeterol [Wixela Inhub] 500-50 mcg/dose blister with device 1 inh inhalation BID Qty: 60 2RF albuterol sulfate 90 mcg/actuation HFA aerosol inhaler 2 puff inhalation Q6H PRN (Reason: shortness of breath or wheezing) Qty: 8.5 3RF guaifenesin [Mucinex] 600 mg tablet extended release 12hr 600 mg PO BID PRN (Reason: congestion) Qty: 60 1RF Rx Instructions: Take 1 tab p.o. twice a day for 7 days and then as needed calcium carbonate 600 mg calcium (1,500 mg) tablet 600 mg PO DAILY cilostazol 100 mg tablet 100 mg PO BID clopidogrel 75 mg tablet 75 mg PO DAILY esomeprazole magnesium [Nexium] 40 mg capsule,delayed release(DR/EC) 40 mg PO DAILY fexofenadine 180 mg tablet 180 mg PO DAILY fluticasone propionate 50 mcg/actuation spray,suspension 2 spray intranasal DAILY Rx Instructions: administer into each nostril pregabalin [Lyrica] 75 mg capsule 75 mg PO BID magnesium 250 mg tablet 500 mg PO DAILY meclizine 12.5 mg tablet 12.5 mg PO TID PRN (Reason: Dizziness Or Vertigo) temazepam [Restoril] 7.5 mg capsule 7.5 mg PO HS rosuvastatin 5 mg tablet 10 mg PO DAILY warfarin 1 mg tablet 2 mg PO UD Rx Instructions: tue,,,tuesday, sat ezetimibe [Zetia] 10 mg tablet 10 mg PO DAILY ipratropium-albuterol 0.5 mg-3 mg(2.5 mg base)/3 mL solution for nebulization 3 ml inhalation Q6H PRN (Reason: shortness of breath or wheezing) Qty: 180 5RF oxycodone-acetaminophen [Percocet] 5-325 mg tablet 1 tab PO Q6H PRN (Reason: pain) Qty: 10 0RF warfarin 3 mg tablet 3 mg PO UD Rx Instructions: tue, tue Combivent Respimat 20-100 mcg/actuation mist 2 puff inhalation DIRECTED PRN (Reason: Other) Discontinued doxycycline hyclate 100 mg capsule 100 mg PO BID No Action (DME) Oxygen Home Liters Per Minute See Rx Instructions .MEDSUPPLY Qty: 1 0RF Rx Instructions: 2 L oxygen nightly. (DME) Flutter Valve Device See Rx Instructions .MEDSUPPLY Qty: 1 0RF Rx Instructions: Use it every 6 hours when awake. (DME) Flutter Valve Device See Rx Instructions .MEDSUPPLY Qty: 1 0RF Rx Instructions: Use it every 6 hours when awake. Discharge Orders: Discharge Order (Routine); Ordered 12/10/24 Ordered By: Rachelle Morel Admission Data Admit Date/Time: 12/07/24 15:25 Attending Provider: Naseem Townsend Admit Provider: Cole Cordoba Primary Care Provider: Toya Colón Other Providers: Cole Cordoba Other Interventions: Discharge Summary Assessment (RN) Last Done: 12/10/24 13:15 Hospital Stay Data Consultations 12/07/24 14:04 ED Decision to Admit Stat Pending Results Patient Have Any Pending Studies at Discharge: No Discharge Instructions Given to Patient (Per Discharging Provider) Mr. Andrade, [place] were recently hospitalized for ongoing shortness of breath and cough. You were found to have pneumonia and rhinovirus. You were treated appropriately. Please see recommendations below regarding discharge. 1. Please take Levofloxacin 750mg once daily for the next 3 days. Your next dose will be 12/11/2024. Please take with food to avoid GI upset. 2. Please take the steroid taper as prescribed. Your first dose at home will be 12/11/2024. 3. Please resume the remainder of your outpatient medications. 4. you will get home therapy which will help you get stronger. 5. Your next dose of Warfarin will be 12/11/2024. You had your dose in the hospital today. Please follow up to get your INR checked outpatient. 6. Please follow up with your PCP within 1-2 weeks of discharge. If you develop any worsening shortness of breath, worsening cough, fevers, or chills please report back to the ER for further care. Sincerely, aRchelle Morel PA-C Total Time Total Time Spent Total Time Spent (In Minutes): 45 Total Time Includes: Examination of the Patient, Discharge Planning and Medication Reconciliation Coding Level of Care Code 31705 INP/OBS DISCH >30 MIN Diagnoses COPD with exacerbation J44.1 Hypoxia R09.02 Rhinovirus B34.8 Current smoker F17.200 History of pulmonary embolism Z86.711
[2024-12-10] MEDS ORDERED: WARFARIN SOD 2 MG TAB PO SCH (16:00)
== END 2024-12-10 14:35 | disposition home health service (06) | DRG 192 ==
LOC: ED 11:42 → SUATTDRO 15:25 → 2W 15:25 → INTOOBSV 15:25 → 2W 17:11